=== PATIENT | male | born 1935 | race Caucasian/White ===

== ENCOUNTER 2018-03-09 08:48 | Outpatient (CLI) | payer MEDICARE, SELFPAY ==
[2018-03-09] VITALS (9 sets, daily range): BP systolic 104–122; BP diastolic 51–79; PULSE 63–74; RESP 16–18; TEMP 36.3; O2SAT 94–95
--- NOTE | 2018-03-09 08:50 | DI.RAD.S_ITS ---
PROCEDURE: PAIN L/SI FACET INJ/BLK 1STL INDICATIONS: SPONDYLOSIS FINDINGS: Fluoroscopic spot filming was performed to verify placement of spinal needles at the L4-L5 and L5-S1 level(s), as labeled on the films. Appropriate location(s) of the needle tip(s) was confirmed by injection of iodinated contrast. Dictated by: Dom Sinha M.D. on 03/10/2018 at 13:57 Approved by: Dom Sinha M.D. on 03/10/2018 at 13:57
[2018-03-09] MEDS: MIDAZOLAM 5 MG/5 ML VIAL IV (09:43)
[2018-03-09] MEDS: BUPIVACAINE 0.5% (PF) VIAL 2 ML INJ (09:48)
[2018-03-09] MEDS: IOPAMIDOL 15 ML VIAL 3 ML INJ (09:48)
[2018-03-09] MEDS: BETAMETHASONE 30 MG/5 ML MDV 12 MG INJ (09:49)
--- NOTE | 2018-03-09 09:53 | PC.NURSE ---
assisting pt from proc table and transporting to post proc area in stable condition
--- NOTE | 2018-03-09 09:57 | P.PCN_ITS ---
Procedures Date/Time Date of procedure: 03/09/18 Time of procedure: 09:56 General Procedure description: PREOP DIAGNOSIS 1. FACET ARTHROPATHY, 2. AXIAL LBP, 3. MULTILEVEL DDD, POST OP DIAGNOSIS 1. FACET ARTHROPATHY, 2. AXIAL LBP, 3. MULTILEVEL DDD, PROCEDURES 1. FLUORSCOPICALLY GUIDED CONTRAST CONTROLLED FACET JOINT INJECTIONS LEFT L4/5 , L5/S1 SURGEON: Gerson Dhillon, DO INDICATIONS Avelino is referred by for treatment of Axial LBP FINDINGS Multilevel Facet Arthropathy with Clinically significant axial LBP DESCRIPTION OF PROCEDURE Fluoroscopically guided, contrast-controlled left L4/5, L5/S1 facet joint injections. Following denial of allergy and review of potential side effects and complications, including, but not necessarily limited to, infection, allergic reaction, local tissue breakdown, stroke, temporary or permanent nerve injury, paralysis, and possible , the patient indicated that the patient understood and agreed to proceed. An informed consent document was signed by the patient, witnessed by a nurse, and placed in the patient's chart. Additionally, other treatment options including medications, modalities, and physical therapy were reviewed with the patient. After review of previous anaesthesic history and IV conscious sedation the patient was deemed safe to proceed with todays procedure with IV conscious sedation as ASA class II designation. Safety time-out was performed to confirm patient ID, procedure to be performed and site of procedure. IV sedation was accomplished with a combination of 2mg was administered by the RN after DO order , titrated to patient comfort during the course of the procedure while the patient remained responsive to all verbal commands. In the prone position, following sterile prep and drape of the lumbar region, the posterior aspect of the left L4/5, L5/S1 facet joints were identified fluoroscopically. The skin was anesthetized via a 25-gauge 1.5-inch needle with 1% lidocaine solution into the corresponding facet joints. At this point, a 22-gauge 3.5-inch spinal needle was atraumatically introduced and advanced under fluoroscopic guidance into the corresponding facet joints. Following negative aspiration, injections of approximately 0.2-cc of Isovue 200 confirmed interarticular placement without vascular uptake. Radiological data, including multiple fluoroscopic views of the lumbosacral spine, reveal a spinal needle at the left L4/5, L5/S1 facet joints. Subsequent views show flow of contrast material both superiorly and inferiorly within the joint space without vascular or intrathecal uptake. At this point, a total of 0.5 cc including a mixture of 0.25cc Marcaine and 0.25cc betamethasone was injected without complication into each of the corresponding facet joints. The procedure tolerated the procedure well without signs or symptoms of complications prior to transfer to the recovery area continued monitoring without incident. The patient was then transferred to the recovery area where they were observed for an appropriate period of time after the injection. The patient reported a VAS score of 7 prior to the procedure and a post-procedure VAS of 0. Total Fluoroscopy Time: 12.7 seconds Total Conscious Sedation Time: 24min POST OP INSTRUCTIONS The patient was provided a Pain Log to continue to record their response to the target-specific procedure prior to follow-up visit with their referring physician. Additionally, specific post-injection care instructions and a contact number to our office were provided if concerns arise regarding possible complications associated with the procedure are suspected. Gerson Dhillon, Complications: none
== END 2018-03-09 10:23 ==
LOC: RAD 08:49
PROVIDERS: Family Provider Family Medicine; PCP Family Medicine; Visit Provider Physical Medicine & Rehabilitation
DX: M47.817 Spondylosis without myelopathy or radiculopathy, lumbosacral region (principal); M43.16 Spondylolisthesis, lumbar region; M54.5 Low back pain; M51.36 Other intervertebral disc degeneration, lumbar region; M51.37 Other intervertebral disc degeneration, lumbosacral region
CPT/HCPCS: 64493; 99152; J0702; J2250

== ENCOUNTER 2018-05-05 06:18 | Inpatient (IN) | payer MEDICARE, SELFPAY ==
[2018-04-21 12:33] VITALS: BMI 27.4
[2018-05-05] VITALS (17 sets, daily range): BP systolic 100–167; BP diastolic 46–89; PULSE 67–88; RESP 9–18; TEMP 35.8–36.7; O2SAT 93–99; BMI 27.4
[2018-05-05] MEDS: LACTATED RINGERS 1,000 ML 42 ML IV ×2 (07:15→09:53)
--- NOTE | 2018-05-05 07:23 | PM.PREOP ---
Pre-operative Note Interval Note History & Physical reviewed/Exam performed by Physician: Yes Changes to H&P: No
[2018-05-05] MEDS: CEFAZOLIN 2 GM/100 ML FROZ.PIGGY IV ×2 (08:01→16:10)
--- NOTE | 2018-05-05 08:36 | SUR.OPER ---
Prone on spine table, head in foam head support, padded chest and pelvic supports, gel pad at knees, lower legs supported by pillows; nipples, genitalia and toes free of pressure, arms secured on foam padded arm boards at <90 degrees abduction. Tape over blanket at thigh secured to table.
[2018-05-05] MEDS: VANCOMYCIN 1,000 MG VIAL 1000 MG TOP (08:45)
[2018-05-05] MEDS: SODIUM CHLORIDE 0.9% 1,000 ML, GENTAMICIN 80 MG IRR (08:45)
[2018-05-05] MEDS: BUPIVACAINE 0.5% (PF) 4 ML, MORPHINE-PF 4 MG, BUTORPHANOL 1 MG, fentaNYL 100 MCG INJ (09:13)
--- NOTE | 2018-05-05 10:15 | PM.OP.1 ---
Operative Date/Time/Diagnoses Date of procedure: 05/05/18 Time of procedure: 10:16 Pre-op diagnosis: Thoracic stenosis with myelopathy Post-op diagnosis: same Procedure & Clinicians Procedure: T11-12 laminectomy T11-12 posterior fusion T11-12 screws Iliac crest bone graft aspirate Use of microscope Placement of epidural catheter Same procedure as scheduled: Yes Indications: 83-year-old male with myelopathy from severe cord compression at T11-12. It was felt that he would benefit from surgical decompression and stabilization and he requested to proceed with surgery. Risks and benefits of surgery were discussed and appropriate consents were obtained. Surgeon: Alberto Chavez Galvanizer Zinc: Selina Walsh Anesthesia Type: General Operative Notes Findings: None Closure Type: primary Specimen(s): none sent Prosthetic devices, grafts, tissues, transplants, or devices: NuVasive Reline screws Applied: catheter Estimated Blood Loss (mL): 20 Procedure in detail: Patient was brought to the operating room and intubated on the table. They were rolled over on the well-padded prone position on the Brown table. A time-out was performed. Preoperative antibiotics were given. The back was prepped and draped in standard sterile fashion. Using fluoroscopy for localization, a 7 cm incision was made in the midline. We used Bovie to dissect through the lumbodorsal fascia and then subperiosteally dissect the paraspinal muscles bilaterally out to the edges of the transverse processes. A marker was placed and x-ray was taken to confirm positioning using both AP verification as well as a lateral counting up from the sacrum. We then began placing our screws. A bur was used to decorticate the junction of the transverse process and the facet. We then advanced a gear shifter with neuro monitoring down the pedicle of T11 on the right. We rotated longterm through to go more medial. We checked with a ball probe for a floor and 4 stokes. We then tapped with neuro monitoring. We decorticated the transverse process and the bone right around where the screw would go with the bur. We then placed our Reline screw into T11 on the right. We used the same technique to place screws at T11 bilaterally and T12 bilaterally. Position was confirmed with fluoroscopy. The facet at T11-12 was decorticated but we took care to preserve the T10-11 facet. We then brought in the microscope. A laminectomy was performed at T11-12. We used a combination of bur and Kerrison rongeurs to remove the ligamentous thickening, the inferior lamina, and the extremely large hypertrophic facets bilaterally. This was much worse on the left side which had a very large indentation into the cord. As we continued with our decompression, the dura began filling back into the space where it had been compressed earlier. At the end of this we could place a nerve hook cephalad caudally and out laterally and everything was widely decompressed. The wound was irrigated. We placed rods into the screws and locked them down and took our final x-rays. An epidural catheter was prepared with 8 mL of 0.25% Marcaine and 100 mcg of fentanyl. The dura was carefully depressed and the catheter was advanced 6 cm cephalad underneath remaining lamina without resistance. The fascia was then closed in layers. The epidural catheter was injected without complications and removed. Vancomycin powder was placed in the wound. The superficial and the skin were closed. Sterile dressing was placed. Patient was rolled over extubated brought to recovery room with no complications. Complications: none Condition: stable Disposition: PACU Plan for aftercare: Inpatient. Up with physical therapy.
--- NOTE | 2018-05-05 10:41 | DI.RAD.S_ITS ---
PROCEDURE: XR THORACIC SPINE 3V INDICATIONS: T-11, T-12 LAMINECTOMY WITH FUSION TECHNIQUE: 2 intraoperative fluoroscopic of the thoracic spine were acquired. COMPARISON: None. FINDINGS: Intraoperative fluoroscopic images of lower thoracic spine/sarcoma junction shows laminectomy and posterior fusion at T11-12 level. IMPRESSION: Fluoroscopy guidance was provided intraoperatively for laminectomy and fusion at T11-12 level. Dictated by: Gary Marie M.D. on 05/05/2018 at 10:49 Approved by: Gary Marie M.D. on 05/05/2018 at 10:50
[2018-05-05] MEDS: HYDROMORPHONE 2 MG INJ 0.5 MG IV ×2 (11:14→11:23)
--- NOTE | 2018-05-05 11:53 | SUR.PHASEI ---
Stable pacu stay, medicated with fentanyl for pain, report called to [facility], then pt transported up to room 226 on room air, pt's belongings, hearing aids and glasses left with pt. Skin rash to l forehead unchanged from admit, dressing to back unchanged from previous charting as well.
[2018-05-05] MEDS: HYDROCODONE/ACET 5/325 TABLET 2 TAB PO (12:52)
[2018-05-05] MEDS: LACTATED RINGERS 1,000 ML 125 ML IV ×2 (12:59→22:07)
[2018-05-05] MEDS: diphenhydrAMINE 25 MG TABLET PO ×2 (13:35→19:37)
--- NOTE | 2018-05-05 13:50 | PT.IIE ---
Current Diagnoses Spondylolisthesis, lumbar region (05/05/18) Other spondylosis with myelopathy, thoracic region (05/05/18) Spinal stenosis, lumbar region with neurogenic claudication (05/05/18) Other cervical disc degeneration, unspecified cervical region (05/05/18) Surgery Performed Operation Date: 05/05/18 07:45 Actual Procedures p T11-12 Laminectomy w/Instru. fusion w/bone graft(Not Applicable) - Alberto Chavez MD Surgical History (Last Updated 04/21/18 @ 13:40 by Arlene Saxena RN) H/O cardiac catheterization (Acute ~2003) History of right cataract extraction (Acute) Hx of tonsillectomy (Acute) S/P aortic valve replacement with bioprosthetic valve (Acute ~2003) Medical History (Last Updated 04/21/18 @ 14:50 by Arlene Saxena RN) Acute on chronic diastolic congestive heart failure (Acute) Amputation of finger, left (Acute) Arthritis (Acute) Back pain (Acute) Bleeds easily (Acute) COPD (chronic obstructive pulmonary disease) (Acute) Carotid artery disease (Acute) Cervical arthritis (Acute) Chronic diastolic congestive heart failure (Acute) Dyslipidemia (Acute) Easy bruisability (Acute) Enlarged prostate (Acute) Graves' eye disease (Acute) Hearing impaired (Acute) Left shoulder pain (Acute) Mitral valve regurgitation (Acute) 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) Peripheral arterial disease (Acute) Rash (Acute) Rheumatoid arthritis (Acute) Shingles (Acute) Thoracic spinal stenosis (Acute) Physical Therapy Inpatient Evaluation/Re-Eval M1 PT/OT-IP Prior Functional Status Start: 05/05/18 15:15 Freq: NEEDED Status: Active Protocol: Document 05/05/18 13:50 AB (Rec: 05/05/18 15:39 AB [id number]) Medical Review Prior Functional Status Medical History Reviewed Yes Communication pt able to make needs known but somewhat sleepy but able to answer questions appropriately Mobility and Gait pt stated that he is independent with all mobilities and ambulation without AD but occasionally uses a SPC outdoors Activities of Daily Living and IADL's spouse assist pt with his UB due to RA on L shoulder Social History Household Members spouse Living Arrangements House Number of Floors (Floors) Two Floors Number of Stairs To Enter/Railing? pt will stay on main level of the house; has 2 steps to enter without rails Home Environment Standard Height Toilet Walk in Shower Home Equipment Straight Cane Shower Seat without Backrest Hand Held Shower Grab Bars In Shower Employment Status Retired Additional Social History Comment pt has a standard walker; has a high bed (may need a step stool) M2 PT-IP Current Condition Start: 05/05/18 15:15 Freq: NEEDED Status: Active Protocol: Document 05/05/18 13:50 AB (Rec: 05/05/18 15:39 AB [id number]) Physical Therapy Current Condition Current Condition Evaluation Date 05/05/18 Treatment Diagnosis s/p T11-T12 lami/posterior fusion; difficulty in walking Onset Date 05/05/18 Precautions Lumbar Precautions Log Roll No Twisting Limit Bending Lifting Restriction of 10 lbs Gait Belt above Incisional Area M3 PT-IP Subjective Start: 05/05/18 15:15 Freq: NEEDED Status: Active Protocol: Document 05/05/18 13:50 AB (Rec: 05/05/18 15:39 AB [id number]) Subjective Physical Therapy Visit Type Type Initial Evaluation Visit Start Time 13:50 Visit Stop Time 15:10 Total Visit Minutes 80 Number of DIETARY DIRECTOR Visits 0 Physical Therapy Visit Comments Patient Comments pt agreeable to do PT Patient Goals spouse present during tx session: stated that for pt to be able to go home he must: be able to get up from the toilet by himself; get up from a chair by himself; get dressed by himself and walk by himself. Therapy Pain Assessment Pain When Pain Assessed At Rest Pain Present Pain Present Pain Reported Location back Intensity 4 Scale Used increased to 5 with mobility Pain Management Techniques Re-positioning Timing of Activity with Medications M4 PT-IP Mobility and Gait Start: 05/05/18 15:15 Freq: NEEDED Status: Active Protocol: Document 05/05/18 13:50 AB (Rec: 05/05/18 15:39 AB [id number]) PT-Bed Mobility Assessment Rolling Type of Rolling Log Rolling Level of Assist Minimal Assistance Supine to Sit Supine to Sit 1 Person Assistance Sit to Supine Sit to Supine Minimal Assistance 1 Person Assistance Scooting Scooting to Edge of Bed Minimal Assistance Scooting Up and Down in Bed Minimal Assistance PT-Transfer Assessment Sit to and From Stand Sit to and from Stand Moderate Assistance 1 Person Assistance Use of Upper Extremities Comments Mobility Comments pt completed bed mobility supine to sit mod A and cues. able to sit on EOB SBA. c/o lightheadedness. BP prior to mobility: 170/89. BP sitting on EOB: 164/74. pt completed sit to stand requiring mod A and max cues. pt was unsteady and required mod A for balance. cued for upright posture and to use UE on walker for support. instructed pt to sit back down requiring mod A for controlled descent. checked BP again: 159/78 attempted to stand again but pt started shaking . pt stated that he feels ok. informed nurse. assisted pt back to bed. instructed to scoot towards HOB and completed CGA. pt completed sit to supine log roll mod A and cues. pt does not present with any shaking/ tremors anymore. BP: 174/92. positioned pt in bed. call light and table placed within reach. Gait Assessment Comments Gait Comments unable at this time PT-Balance Assessment Sitting Balance and Reactions Static Sitting Balance Ability Good Dynamic Sitting Balance Ability Good Standing Balance and Reactions Static Standing Balance Ability Fair Dynamic Standing Balance Ability Fair Device Used FWW M5 PT-IP Objective Assessments Start: 05/05/18 15:15 Freq: NEEDED Status: Active Protocol: Document 05/05/18 13:50 AB (Rec: 05/05/18 15:39 AB [id number]) Orientation Orientation/Cognition Level of Alertness Alert Orientation Name Age Birthday Month Date Year Day of Week Place Situation Language Function Ability No Deficits Noted Hard of Hearing Safety Awareness Decreased Safety Awareness Memory Description Short Term Impaired Gross Range of Motion Lower Extremity ROM Assessment Within Functional Limits Strength Lower Extremity Strength Assessment Within Functional Limits Muscle Tone Muscle Tone WNL Yes M6 PT-IP Treatment Start: 05/05/18 15:15 Freq: NEEDED Status: Active Protocol: Document 05/05/18 13:50 AB (Rec: 05/05/18 15:39 AB [id number]) Physical Therapy Treatment Education Education Provided Precautions Weight Bearing Status Post-Op Packet Safety M7 PT-IP Assessment and Plan Start: 05/05/18 15:15 Freq: NEEDED Status: Active Protocol: Document 05/05/18 13:50 AB (Rec: 05/05/18 15:39 AB [id number]) PT Summary Assessment and Plan Potential Rehabilitation Potential Fair Status of Condition at Evaluation Evolving Summary Impairments Pain ROM Strength Balance Coordination Sensation Tone Cognition Bed Mobility Transfers Gait Activity Tolerance Assessment Summary pt requiring one person assist with mobility and d/c plan depending on progress. spouse stated that she cannot help pt much physically and pt has to be more or less independent for him to be able to go home . caregiver training will be conducted if appropriate. pt also has steps and stair climbing will be conducted as well. At this time, pt may require SNF rehab. Goals Bed Mobility Goal Standby Assistance Transfer Goal Standby Assistance Front Wheeled Walker Gait Goal Standby Assistance Front Wheel Walker Gait Distance 150 Other Goals up/down 2 steps using FWW/SPC SBA Days to Meet Goals 5 Frequency of Treatment Frequency Of Treatment Twice a Day Treatment Plan Physical Therapy Treatment Plan Bed Mobility Training Transfer Training Gait Training Therapeutic Exercise Balance Retraining Post Op Education Discharge Planning Hot or Cold Pack Neuromuscular Re-ed Coordination Retraining Manual Therapy Other Recommendations and Next Treatment bed mobility, ambulation, Focus caregiver training, stair climbing Recommendations To Nursing Amount of Assist Needed PT/OT Assist Only Discharge Recommendations PT Discharge Recommendations SNF Rehab Other Discharge Recommendations SNF vs home with assistance and possibly HH PT depending on progress Equipment Needed for Home Before FWW: spouse will try to borrow Discharge one
--- NOTE | 2018-05-05 15:54 | CM.IDA ---
Discharge Planning/Care Management Advanced directive, confirm from FAMILY Start: 05/05/18 13:29 Freq: Q24H Status: Active Protocol: Document 05/05/18 12:11 CEW (Rec: 05/05/18 14:12 CEW [id number]) Advance Directive, confirm on record Time 08:00 Person contacted Spouse Copy received Yes CM Discharge Assessment Start: 05/05/18 15:45 Freq: Status: Active Protocol: Document 05/05/18 15:46 GIDEON (Rec: 05/05/18 15:53 GIDEON [id number]) Discharge Planning Assessment Assigned Records Management Analyst JOSE J Almendarez DPOA/Assigned Designee Name Bryan Boateng, spouse Contact Information [phone] Advance Directives? Yes Advance Directives on File No History Provided By Patient Significant Other Medical Record Prior Living Arrangements House Household Members spouse Type of transporation used prior to Drives own vehicle admit Independent with ADL's Yes Is patient alert and oriented? Yes Barriers to Discharge Yes Comment Pt just got to the acute care floor today after spinal surgery w/ Dr Chavez. Payer: Medicare/[employer]. Reviewed chart. Pt worked w/ PT this afternoon but unable to safely ambulate at this time, became unsteady, requird Mod A for controlled descent back into chair. Bed mobility completed only today. Spouse explains pt needs to be able to self transfer and walk on his own in order to safely return home, spouse can not assist much physically. Pt may require SNF. Following closely and will review DCP options w/pt and spouse Wednesday . JOSE J Beal Additional Comment Home vs SNF pending progress w /therapy team. Review Status In Process
[2018-05-05] MEDS: GABAPENTIN 300 MG CAPSULE 600 MG PO ×2 (16:08→20:27)
[2018-05-05] MEDS: hydrOXYzine pamoate 25 MG CAPSULE PO ×2 (16:15→21:04)
[2018-05-05] MEDS: LOSARTAN 50 MG TABLET PO (20:27)
[2018-05-05] MEDS: DOCUSATE 100 MG CAPSULE PO (20:29)
[2018-05-05] MEDS: SENNOSIDES 8.6 MG TABLET 17.2 MG PO (20:30)
[2018-05-05] MEDS: HYDROXYCHLOROQUINE 200 MG TABLET PO (20:31)
[2018-05-05] MEDS: FINASTERIDE 5 MG TABLET PO (20:31)
[2018-05-05] MEDS: ASPIRIN EC 81 MG TABLET PO (20:33)
[2018-05-05] MEDS: TIMOLOL 0.5% OPHTH 1 DROPS EYE-BOTH (20:35)
[2018-05-05] MEDS: LATANOPROST 0.005% OPHTH 2.5 ML 1 DROPS EYE-RIGHT (20:36)
[2018-05-05] MEDS: TAMSULOSIN 0.4 MG CAPSULE PO (20:37)
[2018-05-05] MEDS: SIMVASTATIN 40 MG TABLET PO (20:38)
[2018-05-05] MEDS: SILDENAFIL 20 MG TABLET 50 MG PO (20:49)
[2018-05-06] VITALS (8 sets, daily range): BP systolic 98–130; BP diastolic 44–63; PULSE 58–72; RESP 16–20; TEMP 36.4–37; O2SAT 94–97
[2018-05-06] MEDS: CEFAZOLIN 2 GM/100 ML FROZ.PIGGY IV (00:03)
[2018-05-06 06:08] LABS: Hematocrit 31.5 % (41-53); Hemoglobin 10.4 g/dL (13.5-17.5)
[2018-05-06] MEDS: LACTATED RINGERS 1,000 ML 125 ML IV ×2 (06:16→17:40)
--- NOTE | 2018-05-06 07:24 | PM.PNPO.1 ---
Subjective Date Patient Seen: 05/06/18 Time Patient Seen: 07:24 Interval history: He is doing great. Absolutely no pain. Exam Vital Signs (past 8 hours): - 05/06/18 00:47 05/06/18 06:18 Temperature 98.6 F 97.5 F L Pulse Rate 66 72 Respiratory Rate 16 18 Blood Pressure 126/58 L 106/56 L Pulse Oximetry 94 96 Oxygen Delivery Method Room Air Const Orientation: alert and oriented x3 Back/Spine/Pelvis Other: 5/5 motor both lower extremities. Dressing clean dry intact Objective Labs Result Diagrams: 05/06/18 05:35 Labs: Laboratory Results - last 24 hr 05/06/18 05:35 Hgb 10.4 L Hct 31.5 L Assessment & Plan Post-op Postoperative Procedures Operation Date: 05/05/18 07:45 Actual Procedures Side Surgeon p T11-12 Laminectomy w/Instru. fusion w/bone graft Not Applicable Alberto Chavez MD He is doing great. I explained to him that the epidural will wear off at some point today and his pain levels will probably increase but for now he is quite happy. Continue to mobilize with physical therapy. I anticipate discharge probably tomorrow.
[2018-05-06] MEDS: TIMOLOL 0.5% OPHTH 1 DROPS EYE-BOTH ×2 (08:52→20:56)
[2018-05-06] MEDS: GABAPENTIN 300 MG CAPSULE 600 MG PO ×3 (08:53→20:58)
[2018-05-06] MEDS: DOCUSATE 100 MG CAPSULE PO ×2 (08:53→20:59)
[2018-05-06] MEDS: POTASSIUM CHLORIDE 10 MEQ TAB PO (08:53)
--- NOTE | 2018-05-06 09:32 | PT.IPTN ---
Current Diagnoses Spondylolisthesis, lumbar region (05/05/18) Other spondylosis with myelopathy, thoracic region (05/05/18) Spinal stenosis, lumbar region with neurogenic claudication (05/05/18) Other cervical disc degeneration, unspecified cervical region (05/05/18) Surgery Performed Operation Date: 05/05/18 07:45 Actual Procedures p T11-12 Laminectomy w/Instru. fusion w/bone graft(Not Applicable) - Alberto Chavez MD Physical Therapy Treatment Note M2 PT-IP Current Condition Start: 05/05/18 15:15 Freq: NEEDED Status: Active Protocol: Document 05/05/18 13:50 AB (Rec: 05/05/18 15:39 AB [id number]) Physical Therapy Current Condition Current Condition Evaluation Date 05/05/18 Treatment Diagnosis s/p T11-T12 lami/posterior fusion; difficulty in walking Onset Date 05/05/18 Precautions Lumbar Precautions Log Roll No Twisting Limit Bending Lifting Restriction of 10 lbs Gait Belt above Incisional Area M3 PT-IP Subjective Start: 05/05/18 15:15 Freq: NEEDED Status: Active Protocol: Document 05/06/18 09:32 AB (Rec: 05/06/18 12:55 AB [id number]) Subjective Physical Therapy Visit Type Visit Start Time 09:32 Visit Stop Time 12:00 Total Visit Minutes 45 Notes pt seen for a split tx due to BP issues Number of [employer]ER Visits 0 Physical Therapy Visit Comments Patient Comments pt stated that he feels ok; c /o double vision with first tx attempt Therapy Pain Assessment Pain When Pain Assessed At Rest Pain Present Pain Present Pain Reported Location back Intensity 4 Scale Used Numeric (1 - 10) Pain Management Techniques Re-positioning Timing of Activity with Medications M4 PT-IP Mobility and Gait Start: 05/05/18 15:15 Freq: NEEDED Status: Active Protocol: Document 05/06/18 09:32 AB (Rec: 05/06/18 12:55 AB [id number]) PT-Bed Mobility Assessment Rolling Type of Rolling Log Rolling Level of Assist Standby Assistance PT-Transfer Assessment Sit to and From Stand Sit to and from Stand Moderate Assistance Equipment Transfer Assistive Device Gait Belt Front Wheeled Walker Orthotic/Prosthetic Devices or Brace: No Transfers Transfer Technique pt ambulated to the chair Transfer Ability Level of Assist Moderate Assistance Comments Mobility Comments checked on pt and pt sitting on chair. BP sitting on chair : 90/42. elevated LE up. BP checked again: 89/41. informed nurse. Reclined pt on chair: 90/39. checked again after ~ 2 min: 94/48. pt also with c/o double vision. informed nurse again and stated that she will ask for IV bolus order. checked on pt after ~ 1 1/2. pt in bed. BP supine: 105/50. pt completed supine to sit SBA and cues for safety. BP sitting on EOB: 110/55 pt rested for a few more minutes sitting. pt completed sit to stand mod A and cues with + LE shaking. BP checked again 106/59. pt ambulated to the chair ~ 12 ft using FWW mod A and cues. pt with unsteady antalgic gait with (+) RLE increase knee bending and shaking during stance . set pt on chair. BP checked: 105/ 46. nurse informed. pt was asked regarding symptoms since start of tx session but stated that he feels great and steady. when asked again, pt stated that he might be a little lightheaded. BP needs to be monitored closely as pt tends to downgrade his symptoms. Gait Assessment Gait Gait Assistance Required: Moderate Assistance Distance (Feet) 12 Able to Maintain Weight Bearing Status Yes During Gait Assistive Devices Assistive Device Gait Belt Front Wheeled Walker Orthotic/Prosthetic Devices or Brace: No Gait Deviations General Gait Pattern Antalgic Decreased Stride Length Decreased Feet Clearance Factors Limiting Gait Function Factors Limiting Gait Function Decreased Activity Tolerance Decreased Strength Difficulty Following Directions Limited Range of Motion Pain Poor Balance Poor Safety Awareness M5 PT-IP Objective Assessments Start: 05/05/18 15:15 Freq: NEEDED Status: Active Protocol: Document 05/05/18 13:50 AB (Rec: 05/05/18 15:39 AB [id number]) Orientation Orientation/Cognition Level of Alertness Alert Orientation Name Age Birthday Month Date Year Day of Week Place Situation Language Function Ability No Deficits Noted Hard of Hearing Safety Awareness Decreased Safety Awareness Memory Description Short Term Impaired Gross Range of Motion Lower Extremity ROM Assessment Within Functional Limits Strength Lower Extremity Strength Assessment Within Functional Limits Muscle Tone Muscle Tone WNL Yes M6 PT-IP Treatment Start: 05/05/18 15:15 Freq: NEEDED Status: Active Protocol: Document 05/06/18 09:32 AB (Rec: 05/06/18 12:55 AB [id number]) Physical Therapy Treatment Education Education Provided Precautions Safety M7 PT-IP Assessment and Plan Start: 05/05/18 15:15 Freq: NEEDED Status: Active Protocol: Document 05/06/18 09:32 AB (Rec: 05/06/18 12:55 AB [id number]) PT Summary Assessment and Plan Potential Rehabilitation Potential Fair Summary Impairments Pain ROM Strength Balance Coordination Cognition Bed Mobility Transfers Gait Activity Tolerance Progress Towards Goals Slow Progress due to Activity Tolerance Assessment Summary pt requiring mod A with transfers and ambulation and unable to do much activity due to decrease in BP. d/c plan depending on progress and if spouse will be able to assist pt safely at home. will continue to assess Goals Bed Mobility Goal Standby Assistance Transfer Goal Standby Assistance Front Wheeled Walker Gait Goal Standby Assistance Front Wheel Walker Gait Distance 150 Other Goals up/down 2 steps using FWW/SPC SBA Days to Meet Goals 5 Frequency of Treatment Frequency Of Treatment Twice a Day Treatment Plan Physical Therapy Treatment Plan Bed Mobility Training Transfer Training Gait Training Therapeutic Exercise Balance Retraining Post Op Education Discharge Planning Hot or Cold Pack Neuromuscular Re-ed Coordination Retraining Manual Therapy Other Recommendations and Next Treatment bed mobility, ambulation, Focus caregiver training, stair climbing Recommendations To Nursing Amount of Assist Needed 1 Person Assist Discharge Recommendations PT Discharge Recommendations Home with / Assist Home Health SNF Rehab Other Discharge Recommendations SNF vs home with assistance and possibly HH PT depending on progress
--- NOTE | 2018-05-06 09:59 | OT.IP.TRT ---
Current Diagnoses Spondylolisthesis, lumbar region (05/05/18) Other spondylosis with myelopathy, thoracic region (05/05/18) Spinal stenosis, lumbar region with neurogenic claudication (05/05/18) Other cervical disc degeneration, unspecified cervical region (05/05/18) Surgery Performed Operation Date: 05/05/18 07:45 Actual Procedures p T11-12 Laminectomy w/Instru. fusion w/bone graft(Not Applicable) - Alberto Chavez MD Occupational Therapy Treatment Note M2 OT-IP Current Condition Start: 05/06/18 08:58 Freq: Status: Active Protocol: Document 05/06/18 09:32 [facility] (Rec: 05/06/18 09:59 [facility] [id number]) Occupational Therapy Current Condition Current Condition Evaluation Date 05/06/18 Treatment Diagnosis T11-12 Laminectomy Post Operative Precautions Lumbar Precautions Log Roll No Twisting Limit Bending Lifting Restriction of 10 lbs Gait Belt above Incisional Area M3 OT- IP Subjective and Pain Start: 05/06/18 08:58 Freq: Status: Active Protocol: Document 05/06/18 09:32 [facility] (Rec: 05/06/18 09:59 [facility] [id number]) OT- Subjective Occupational Therapy Visit Type Type Initial Evaluation Visit Start Time 08:15 Visit Stop Time 08:50 Total Visit Minutes 45 Notes Pt also seen from 0920 to 0930 . Pt's present for OT eval. Occupational Therapy Visit Comments Patient Comments Pt willing to get up for OT eval. OT Pain Assessment Pain When Pain Assessed At Rest Pain Present Pain Present Denied Pain M4 OT- IP ADL's Start: 05/06/18 08:58 Freq: Status: Active Protocol: Document 05/06/18 09:32 [facility] (Rec: 05/06/18 09:59 [facility] [id number]) OT OCM-Xrjj-Rzlkczy General Evaluation Self-Feeding Ability Independent OT ADL-Grooming General Evaluation Grooming Ability Standby Assistance Comments OT Grooming Comments Set-up of wash cloth so pt able to wash his face and hand while in bed. Pt wanting to brush his teeth after breakfast. OT ADL-Dressing General Eval Lower Body Dressing Ability Maximum Assistance Areas Needing Assistance Socks Comments OT Dressing Comments MAX A for LB dressing at this time due to back precautions. Able to show and educate pt for LB dressing AED and needing SKYLA for socks aid and will need more practice. Pt's states able to assist if needed but prefers for pt to be able to do all dressing on his own. OT ADL-Toileting General Evaluation Toileting Ability Total Assistance Comments OT Toileting Comments Catheter. M5 OT- IP IADL's Start: 05/06/18 08:58 Freq: Status: Active Protocol: Document 05/06/18 09:32 [facility] (Rec: 05/06/18 09:59 [facility] [id number]) OT-Instrumental Activities of Daily Living Medication Management Medication Management Caregiver Administers Money Management Money Management Caregiver Provides Assistance Meal Preparation Meal Preparation Caregiver Provides Assist M6 OT- IP Functional Cognition Start: 05/06/18 08:58 Freq: Status: Active Protocol: Document 05/06/18 09:32 [facility] (Rec: 05/06/18 09:59 [facility] [id number]) Cognitive Factors Limiting Selfcare Function Cognitive Ability Level of Alertness Alert Patient Orientation Name Place Situation Attention Span Ability Capable of Focused Attention Capable of Sustained Attention Ability to Follow Commands Able to Follow One Step Commands with Increased Time Able to Follow One Step Commands with Repetition Memory Description Short Term Impaired Safety Awareness Decreased Ability to Apply Precautions Underestimates Need for Assistance Problem Solving Ability Needs Assist to Identify Solutions Cognitive Comments Cognitive Assessment Comments Pt unable to recall back precautions and after education only able to recall 2/3. Pt needing cues to use of BUE to push off the bed to stand and reach back before sitting. Pt a bit impulsive and needing cues to slow down. 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 Today pt's eyes at times not scanning together to follow therapist finger, especially to the left. M7 OT- IP Mobility and Balance Start: 05/06/18 08:58 Freq: Status: Active Protocol: Document 05/06/18 09:32 [facility] (Rec: 05/06/18 09:59 [facility] [id number]) OT- Bed Mobility Assessment Rolling Type of Rolling Roll to Right Level of Assistance Standby Assistance Supine to Sit Supine to Sit Assist Standby Assistance 1 Person Assistance Scooting Scooting to Edge of Bed Standby Assistance 1 Person Assistance OT-Transfer Assessment Sit to and From Stand Sit to and from Stand Standby Assistance 1 Person Assistance Transfers Transfer Ability Minimal Assistance Technique Transfer Destination Chair Transfer Technique Stand Pivot Devices Transfer Assistive Devices Gait Belt Front Wheeled Walker Comments Mobility Comments BP supine 101/50, sitting 109/ 72 , and after standing 103/48 , pt states feels a bit groggy , nursing notified of decreased BP. Pt tending to lean to the right while walking and needing SKYLA for balance. At this time recommend to nursing transfer only due to decreased BP and balance. OT- Balance Assessment Sitting Balance and Reactions Static Sitting Balance Ability Normal Dynamic Sitting Balance Ability Good Standing Balance and Reactions Static Standing Balance Ability Fair M8 OT- IP Objective Assessments Start: 05/06/18 08:58 Freq: Status: Active Protocol: Document 05/06/18 09:32 [facility] (Rec: 05/06/18 09:59 [facility] [id number]) OT Gross Range of Motion Upper Extremity Range of Motion Assessment Left Impaired ROM Impairments RUE WFL. 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 OT Strength Comments Strength Comments RUE 5/5, elbow to distal 5/5 for LUE. M9 OT- IP Assessment and Plan Start: 05/06/18 08:58 Freq: Status: Active Protocol: Document 05/06/18 09:32 [facility] (Rec: 05/06/18 09:59 [facility] [id number]) OT Summary Assessment and Plan Potential Rehabilitation Potential Good Analytic Complexity at Evaluation Low Summary OT Impairments Range of Motion Balance Functional Cognition Functional Mobility Grooming Dressing Toileting Bathing Toilet Transfers Shower Transfers Progress Towards Goals Slow Progress due to Medical Issues Slow Progress due to Cognition Assessment Summary Pt low complexity and main barrier are steps, low BP, and decreased safety awareness. Pt's unable to do lifting and needing pt to be able to independently dress,toilet , and transfer on his own prior to coming home. Pt a bit groogy and not remembering back precautions and needing lots of cues to safety. Pt would benefit at this time from skilled rehab pending caregiver training and ability of pt's to provide even assist for pt. Goals Grooming Goal Standby Assistance Dressing Goal Minimal Assistance Toileting Goal Standby Assistance Bathing Goal Minimal Assistance Toilet Transfer Goal Standby Assistance Shower Transfer Goal Contact Guard Assistance Patient/Caregiver Education Goal Demonstrate Post-Op Precautions Caregiver Independent Assisting Patient Days to Meet Goals 4 Frequency of Treatment Frequency Of Treatment Once a Day Treatment Plan OT Treatment Plan ADL Training Functional Cognition Training Functional Mobility Patient/Family Education Discharge Planning Other Treatment Recommendations and Next Caregiver training, practice Treatment Focus with AED Discharge Recommendations OT Discharge Recommendations SNF Rehab Other Discharge Recommendations Pending caregiver training and increased progress and safety with pt , pt may go home with . Home Equipment Needs FWW
--- NOTE | 2018-05-06 11:04 | PC.NURSE ---
Addendum entered by Lisa Mesa R.N. 05/06/18 14:26: Pts given 1L Normal Saline bolus and bp better at 100s/50s. Pt has not been in much pain this shift and has not asked for pain medication. It has been offered to him but he has mostly been sleepy. He does deny any further dizziness or double vision. Original Note: Pts blood pressure dropped to 90/30s. He complained of dizziness and double vision. Fax sent down to to see if he wanted to bolus patient with NS. Just checked pts bloop pressure and it is now 100s/52, he got back to bed with rag shredder assist and did not complain of any dizziness. His dressings are both cdi and he denies pain at this time. Denies numbness or tingling to arms and legs. Pt does have some confusion at times but is cooperative with all care. Pts lasix and Viagra have been held as bp has been low. at bedside and pt resting on his back.
[2018-05-06] MEDS: SODIUM CHLORIDE 0.9% 1,000 ML 1000 ML IV (11:57)
--- NOTE | 2018-05-06 14:57 | PT.IPTN ---
Current Diagnoses Spondylolisthesis, lumbar region (05/05/18) Other spondylosis with myelopathy, thoracic region (05/05/18) Spinal stenosis, lumbar region with neurogenic claudication (05/05/18) Other cervical disc degeneration, unspecified cervical region (05/05/18) Surgery Performed Operation Date: 05/05/18 07:45 Actual Procedures p T11-12 Laminectomy w/Instru. fusion w/bone graft(Not Applicable) - Alberto Chavez MD Physical Therapy Treatment Note M2 PT-IP Current Condition Start: 05/05/18 15:15 Freq: NEEDED Status: Active Protocol: Document 05/05/18 13:50 AB (Rec: 05/05/18 15:39 AB [id number]) Physical Therapy Current Condition Current Condition Evaluation Date 05/05/18 Treatment Diagnosis s/p T11-T12 lami/posterior fusion; difficulty in walking Onset Date 05/05/18 Precautions Lumbar Precautions Log Roll No Twisting Limit Bending Lifting Restriction of 10 lbs Gait Belt above Incisional Area M3 PT-IP Subjective Start: 05/05/18 15:15 Freq: NEEDED Status: Active Protocol: Document 05/06/18 14:10 LJ (Rec: 05/06/18 14:56 LJ [id number]) Subjective Physical Therapy Visit Type Type Treatment Note Visit Start Time 14:10 Visit Stop Time 14:37 Total Visit Minutes 27 Notes Pt sleeping in bed. in room. Pt willing to get out of bed for therapy. Physical Therapy Visit Comments Patient Comments Pt states he feels better; no dizziness or double vision. States he is feeling the anesthesia wear off and is having a little more pain than yesterday. Therapy Pain Assessment Pain When Pain Assessed At Rest Pain Present Pain Present Pain Reported M4 PT-IP Mobility and Gait Start: 05/05/18 15:15 Freq: NEEDED Status: Active Protocol: Document 05/06/18 14:10 LJ (Rec: 05/06/18 14:56 LJ [id number]) PT-Bed Mobility Assessment Rolling Type of Rolling Log Rolling Level of Assist Standby Assistance Supine to Sit Supine to Sit Standby Assistance Sit to Supine Sit to Supine Standby Assistance Scooting Scooting to Edge of Bed Standby Assistance PT-Transfer Assessment Sit to and From Stand Sit to and from Stand Contact Guard Assistance Use of Upper Extremities Equipment Transfer Assistive Device Gait Belt Front Wheeled Walker Orthotic/Prosthetic Devices or Brace: No Transfers Transfer Destination Bed Transfer Ability Level of Assist Contact Guard Assistance Comments Mobility Comments Pt performed 6 sit<>stand with bed in low and high positions . Able to state andadhere to back precautions. No LOB, dizziness, or double vision. M5 PT-IP Objective Assessments Start: 05/05/18 15:15 Freq: NEEDED Status: Active Protocol: Document 05/05/18 13:50 AB (Rec: 05/05/18 15:39 AB [id number]) Orientation Orientation/Cognition Level of Alertness Alert Orientation Name Age Birthday Month Date Year Day of Week Place Situation Language Function Ability No Deficits Noted Hard of Hearing Safety Awareness Decreased Safety Awareness Memory Description Short Term Impaired Gross Range of Motion Lower Extremity ROM Assessment Within Functional Limits Strength Lower Extremity Strength Assessment Within Functional Limits Muscle Tone Muscle Tone WNL Yes M6 PT-IP Treatment Start: 05/05/18 15:15 Freq: NEEDED Status: Active Protocol: Document 05/06/18 14:10 LJ (Rec: 05/06/18 14:56 LJ [id number]) Physical Therapy Treatment Exercises Exercises Ankle Pumps Gluteal Sets Heel Slides Education Education Provided Precautions Safety Other Treatments Other Treatment Performed Marching in place; weight shifting in place; glute and abdominal engagement for stability in standing and during ambulation M7 PT-IP Assessment and Plan Start: 05/05/18 15:15 Freq: NEEDED Status: Active Protocol: Document 05/06/18 14:10 LJ (Rec: 05/06/18 14:56 LJ [id number]) PT Summary Assessment and Plan Potential Rehabilitation Potential Fair Summary Impairments Pain ROM Strength Balance Coordination Cognition Bed Mobility Transfers Gait Activity Tolerance Assessment Summary Pt improved mobility with less assist. Advised pt that he would need to complete stair training and step up into bed for safe d/c home. Pt also needs to progress gait for safe d/c home. Pt states the told him he wouldn't have to anything once he gets home but disagrees and is concerned pt will not try to do anything for himself. Goals Bed Mobility Goal Standby Assistance Transfer Goal Standby Assistance Front Wheeled Walker Gait Goal Standby Assistance Front Wheel Walker Gait Distance 150 Other Goals up/down 2 steps using FWW/SPC SBA Days to Meet Goals 5 Frequency of Treatment Frequency Of Treatment Twice a Day Treatment Plan Physical Therapy Treatment Plan Bed Mobility Training Transfer Training Gait Training Therapeutic Exercise Balance Retraining Post Op Education Discharge Planning Hot or Cold Pack Neuromuscular Re-ed Coordination Retraining Manual Therapy Recommendations To Nursing Amount of Assist Needed 1 Person Assist Discharge Recommendations PT Discharge Recommendations Home with 24/ Assist Home Health SNF Rehab Other Discharge Recommendations SNF vs home with assistance and possibly PT depending on progress. Pt will need to be less dependent on spouse for ADLs for DC home.
[2018-05-06] MEDS: HYDROCODONE/ACET 5/325 TABLET 1 TAB PO (15:03)
--- NOTE | 2018-05-06 15:03 | CM.DPNOTE ---
Met w/pt and his at bedside this morning, explained SW role and discussed therapy recommendation for SNF. Pt hopeful he can go home, but HH will not be an option d/t spinal surgery, surgeon will (likely)not order HH. Spouse reiterates that pt will need to be able to get up and walk on his own. Pt and spouse discuss in home caregivers (?) this HEADLINE WRITER discusses SNF benefit w/Medicare and encouraged them both to strongly consider rehab for safe DCP. OT Argelia at bedside as well and about to begin her morning eval. Pt/spouse don't seem to want to discuss SNF as a DCP option today. HEADLINE WRITER team will follow closely, another attempt at this discussion Wednesday. GIDEON Discharge Planning/Care Management Advanced directive, confirm from FAMILY Start: 05/05/18 13:29 Freq: Q24H Status: Active Protocol: Document 05/05/18 12:11 CEW (Rec: 05/05/18 14:12 CEW [id number]) Advance Directive, confirm on record Time 08:00 Person contacted Spouse Copy received Yes Document 05/06/18 01:55 (Rec: 05/06/18 01:58 [id number]) Advance Directive, confirm on record Time 08:00 Person contacted Spouse Copy received Yes Discharge Assessment Start: 05/05/18 15:45 Freq: Status: Active Protocol: Document 05/05/18 15:46 GIDEON (Rec: 05/05/18 15:53 [id number]) Discharge Planning Assessment Assigned Molasses Feed Mixer Jazzmine Biswas MSW DPOA/Assigned Designee Name Bryan Boateng, spouse Contact Information [phone] Advance Directives? Yes Advance Directives on File No History Provided By Patient Significant Other Medical Record Prior Living Arrangements House Household Members spouse Type of transporation used prior to Drives own vehicle admit Independent with ADL's Yes Is patient alert and oriented? Yes Barriers to Discharge Yes Comment Pt just got to the acute care floor today after spinal surgery w/ Dr Chavez. Payer: Medicare/[employer]. Reviewed chart. Pt worked w/ PT this afternoon but unable to safely ambulate at this time, became unsteady, requird Mod A for controlled descent back into chair. Bed mobility completed only today. Spouse explains pt needs to be able to self transfer and walk on his own in order to safely return home, spouse can not assist much physically. Pt may require SNF. Following closely and will review DCP options w/pt and spouse Wednesday . JOSE J Beal Additional Comment Home vs SNF pending progress w /therapy team. Review Status In Process
[2018-05-06] MEDS: HYDROCODONE/ACET 5/325 TABLET 2 TAB PO (20:13)
[2018-05-06] MEDS: LATANOPROST 0.005% OPHTH 2.5 ML 1 DROPS EYE-RIGHT (20:55)
[2018-05-06] MEDS: FINASTERIDE 5 MG TABLET PO (20:57)
[2018-05-06] MEDS: HYDROXYCHLOROQUINE 200 MG TABLET PO (20:57)
[2018-05-06] MEDS: ASPIRIN EC 81 MG TABLET PO (20:58)
[2018-05-06] MEDS: SENNOSIDES 8.6 MG TABLET 17.2 MG PO (20:59)
[2018-05-06] MEDS: TAMSULOSIN 0.4 MG CAPSULE PO (21:03)
[2018-05-06] MEDS: SIMVASTATIN 40 MG TABLET PO (21:03)
[2018-05-06] MEDS: ZOLPIDEM 5 MG TABLET PO (23:36)
[2018-05-07] MEDS: LACTATED RINGERS 1,000 ML 125 ML IV (03:58)
[2018-05-07 06:36] VITALS: BP 141/65; PULSE 62; RESP 18; O2SAT 96
[2018-05-07] MEDS: HYDROCODONE/ACET 5/325 TABLET 1 TAB PO (06:37)
--- NOTE | 2018-05-07 08:15 | PM.PNPO.1 ---
Subjective Date Patient Seen: 05/07/18 Time Patient Seen: 08:15 Interval history: He is doing well. Has been up with physical therapy and able to get up and down and in and out of bed. His reports that he was still little bit shaky with walking yesterday. However, he seems to be getting stronger compared to how he was preoperatively. Exam Vital Signs (past 8 hours): - 05/07/18 06:36 Pulse Rate 62 Respiratory Rate 18 Blood Pressure 141/65 H Pulse Oximetry 96 Oxygen Delivery Method Room Air Const Orientation: alert and oriented x3 Back/Spine/Pelvis Other: Dressing CDI. 5/5 motor both lower extremities Objective Labs Result Diagrams: 05/06/18 05:35 Assessment & Plan Post-op Postoperative Procedures Operation Date: 05/05/18 07:45 Actual Procedures Side Surgeon p T11-12 Laminectomy w/Instru. fusion w/bone graft Not Applicable Alberto Chavez MD He is doing very well. Continue to mobilize with physical therapy. Discharge home if he passes physical therapy today. If not tomorrow
[2018-05-07 09:00] VITALS: BP 137/62; PULSE 77; RESP 18; TEMP 36.3; O2SAT 97
[2018-05-07] MEDS: SILDENAFIL 20 MG TABLET 50 MG PO (09:12)
[2018-05-07] MEDS: GABAPENTIN 300 MG CAPSULE 600 MG PO (09:13)
[2018-05-07] MEDS: DOCUSATE 100 MG CAPSULE PO (09:13)
[2018-05-07] MEDS: FUROSEMIDE 40 MG TABLET PO (09:14)
[2018-05-07] MEDS: POTASSIUM CHLORIDE 10 MEQ TAB PO (09:14)
[2018-05-07] MEDS: TIMOLOL 0.5% OPHTH 1 DROPS EYE-BOTH (09:14)
[2018-05-07 09:20] VITALS: PULSE 76; RESP 16; O2SAT 97
--- NOTE | 2018-05-07 09:20 | PT.IPTN ---
Current Diagnoses Spondylolisthesis, lumbar region (05/05/18) Other spondylosis with myelopathy, thoracic region (05/05/18) Spinal stenosis, lumbar region with neurogenic claudication (05/05/18) Other cervical disc degeneration, unspecified cervical region (05/05/18) Surgery Performed Operation Date: 05/05/18 07:45 Actual Procedures p T11-12 Laminectomy w/Instru. fusion w/bone graft(Not Applicable) - Alberto Chavez MD Physical Therapy Treatment Note M2 PT-IP Current Condition Start: 05/05/18 15:15 Freq: NEEDED Status: Active Protocol: Document 05/05/18 13:50 AB (Rec: 05/05/18 15:39 AB [id number]) Physical Therapy Current Condition Current Condition Evaluation Date 05/05/18 Treatment Diagnosis s/p T11-T12 lami/posterior fusion; difficulty in walking Onset Date 05/05/18 Precautions Lumbar Precautions Log Roll No Twisting Limit Bending Lifting Restriction of 10 lbs Gait Belt above Incisional Area M3 PT-IP Subjective Start: 05/05/18 15:15 Freq: NEEDED Status: Active Protocol: Document 05/07/18 09:20 GGD (Rec: 05/07/18 12:07 GGD [email or web address]) Subjective Physical Therapy Visit Type Type Treatment Note Visit Start Time 08:50 Visit Stop Time 09:20 Total Visit Minutes 30 Number of COMMUNICATIONS CONSULTANT Visits 1 Physical Therapy Visit Comments Patient Comments Pt states he feels ready to go home. Therapy Pain Assessment Pain When Pain Assessed At Rest Pain Present Pain Present Pain Reported M4 PT-IP Mobility and Gait Start: 05/05/18 15:15 Freq: NEEDED Status: Active Protocol: Document 05/07/18 09:20 GGD (Rec: 05/07/18 12:07 GGD [email or web address]) PT-Bed Mobility Assessment Rolling Type of Rolling Log Rolling Level of Assist Standby Assistance Supine to Sit Supine to Sit Standby Assistance Sit to Supine Sit to Supine Standby Assistance Scooting Scooting to Edge of Bed Standby Assistance PT-Transfer Assessment Sit to and From Stand Sit to and from Stand Contact Guard Assistance Use of Upper Extremities Equipment Transfer Assistive Device Gait Belt Front Wheeled Walker Orthotic/Prosthetic Devices or Brace: No Transfers Transfer Destination Bed Chair Transfer Ability Level of Assist Contact Guard Assistance Comments Mobility Comments Pt performed supine <> sit x 2 with step stool into high bed , same height as home. He need min cues for full log. Gait Assessment Gait Gait Assistance Required: Contact Guard Assist Distance (Feet) 320 Able to Maintain Weight Bearing Status Yes During Gait Assistive Devices Assistive Device Gait Belt Front Wheeled Walker Orthotic/Prosthetic Devices or Brace: No Gait Deviations General Gait Pattern Antalgic Decreased Stride Length Decreased Feet Clearance Factors Limiting Gait Function Factors Limiting Gait Function Decreased Activity Tolerance Decreased Strength Difficulty Following Directions Limited Range of Motion Pain Poor Balance Poor Safety Awareness Stair Climbing Assessment Evaluation Level of Assist On Stairs Minimal Assistance 1 Person Assistance Devices Stair Climbing Assistive Devices None Technique/Endurance Stair Climbing Direction Ascend and Descend Stair Climbing Technique Step Over Step Number of Steps Climbed 3 Query Text: Stair Climbing Set # Repetitions (reps) 2 Comments Stair Climbing Comments Pt used right wall and left hand hold assist. once with therapist and once with . M5 PT-IP Objective Assessments Start: 05/05/18 15:15 Freq: NEEDED Status: Active Protocol: Document 05/05/18 13:50 AB (Rec: 05/05/18 15:39 AB [id number]) Orientation Orientation/Cognition Level of Alertness Alert Orientation Name Age Birthday Month Date Year Day of Week Place Situation Language Function Ability No Deficits Noted Hard of Hearing Safety Awareness Decreased Safety Awareness Memory Description Short Term Impaired Gross Range of Motion Lower Extremity ROM Assessment Within Functional Limits Strength Lower Extremity Strength Assessment Within Functional Limits Muscle Tone Muscle Tone WNL Yes M6 PT-IP Treatment Start: 05/05/18 15:15 Freq: NEEDED Status: Active Protocol: Document 05/07/18 09:20 GGD (Rec: 05/07/18 12:07 GGD [email or web address]) Physical Therapy Treatment Education Education Provided Precautions Safety M7 PT-IP Assessment and Plan Start: 05/05/18 15:15 Freq: NEEDED Status: Active Protocol: Document 05/07/18 09:20 GGD (Rec: 05/07/18 12:07 GGD [email or web address]) PT Summary Assessment and Plan Summary Assessment Summary Pt improving in mobility. He need cues for safe pace with gait and full log roll. Pt was safe with stair mobility. He' s is able to assist and cue pt as needed. Pt is safe for home D/C when medically stable. Frequency of Treatment Frequency Of Treatment Twice a Day Recommendations To Nursing Amount of Assist Needed 1 Person Assist Discharge Recommendations PT Discharge Recommendations Home with Assistance
--- NOTE | 2018-05-07 10:52 | OT.IP.TRT ---
Current Diagnoses Spondylolisthesis, lumbar region (05/05/18) Other spondylosis with myelopathy, thoracic region (05/05/18) Spinal stenosis, lumbar region with neurogenic claudication (05/05/18) Other cervical disc degeneration, unspecified cervical region (05/05/18) Surgery Performed Operation Date: 05/05/18 07:45 Actual Procedures p T11-12 Laminectomy w/Instru. fusion w/bone graft(Not Applicable) - Alberto Chavez MD Occupational Therapy Treatment Note M2 OT-IP Current Condition Start: 05/06/18 08:58 Freq: Status: Active Protocol: Document 05/06/18 09:32 [facility] (Rec: 05/06/18 09:59 [facility] [email or web address]) Occupational Therapy Current Condition Current Condition Evaluation Date 05/06/18 Treatment Diagnosis T11-12 Laminectomy Post Operative Precautions Lumbar Precautions Log Roll No Twisting Limit Bending Lifting Restriction of 10 lbs Gait Belt above Incisional Area M3 OT- IP Subjective and Pain Start: 05/06/18 08:58 Freq: Status: Active Protocol: Document 05/07/18 10:36 [facility] (Rec: 05/07/18 10:52 [facility] [email or web address]) OT- Subjective Occupational Therapy Visit Type Type Treatment Note Visit Start Time 08:55 Visit Stop Time 09:25 Total Visit Minutes 65 Notes Pt also seen from [id number] for caregiver training with for showering needs. Occupational Therapy Visit Comments Patient Comments Pt feeling ready to go home. OT Pain Assessment Pain When Pain Assessed At Rest Pain Present Pain Present Denied Pain M4 OT- IP ADL's Start: 05/06/18 08:58 Freq: Status: Active Protocol: Document 05/07/18 10:36 [facility] (Rec: 05/07/18 10:52 [facility] [email or web address]) OT ADL-Dressing General Eval Upper Body Dressing Ability Standby Assistance Moderate Assistance Areas Needing Assistance Underpants/Brief Pants/Shorts Shoes Assistive Devices Dressing Assistive Devices Field Gauger Sock Aid Comments OT Dressing Comments Pt needing cues to be sure not to bend forwards while doing LB dressing needs. Educated pt and regarding AED for LB dressing needs. Pt still needing occasional cues from to incorporate back precautions for ADl needs. OT ADL-Toileting Comments OT Toileting Comments Catheter just taken out. Suggested pt to stand from hygiene after bowel movement . Pt does have long arms and states can just lean and reach adequately. OT ADL-Bathing Bathing Type Bathing Type Shower General Evaluation Bathing Ability Moderate Assistance Areas Needing Assistance Wash/Dry Upper Body Wash/Dry Lower Extremities Devices Bathing Equipment Hand Held Shower Sprayer Shower Chair with Arms Grab Bars Comments OT Bathing Comments Pt able to use long handled sponge for showering and needing assist for wash/dry back and dry his legs/feet. Pt dropped item in the shower and reflexively trying to bend over to retrieve object. Pt stopped from bending and reminded of back precautions. Pt's states does have a shower chair at home and that she will be able to assist pt as well. M5 OT- IP IADL's Start: 05/06/18 08:58 Freq: Status: Active Protocol: Document 05/06/18 09:32 [facility] (Rec: 05/06/18 09:59 [facility] [email or web address]) OT-Instrumental Activities of Daily Living Medication Management Medication Management Caregiver Administers Money Management Money Management Caregiver Provides Assistance Meal Preparation Meal Preparation Caregiver Provides Assist M6 OT- IP Functional Cognition Start: 05/06/18 08:58 Freq: Status: Active Protocol: Document 05/07/18 10:36 [facility] (Rec: 05/07/18 10:52 [facility] [email or web address]) Cognitive Factors Limiting Selfcare Function Cognitive Ability Level of Alertness Alert Patient Orientation Name Place Situation Attention Span Ability Capable of Focused Attention Capable of Sustained Attention Ability to Follow Commands Able to Follow One Step Commands Memory Description Short Term Impaired Safety Awareness Decreased Ability to Apply Precautions Underestimates Need for Assistance Cognitive Comments Cognitive Assessment Comments Pt still a bit impulsive and needing vc to slow down, use of BUE to push up from surfaces versus just grab FWW to stand, and to use FWW to back up all the way to the recliner before sitting versus reach sideways before sitting . OT- Vision and Hearing OT- Vision Assessment Vision Assessment Comments Pt not complaining of any dizziness or blurred vision today. M7 OT- IP Mobility and Balance Start: 05/06/18 08:58 Freq: Status: Active Protocol: Document 05/07/18 10:36 [facility] (Rec: 05/07/18 10:52 [facility] [email or web address]) OT- Bed Mobility Assessment Rolling Type of Rolling Roll to Right Level of Assistance Standby Assistance Supine to Sit Supine to Sit Assist Standby Assistance 1 Person Assistance Scooting Scooting to Edge of Bed Standby Assistance 1 Person Assistance OT-Transfer Assessment Sit to and From Stand Sit to and from Stand Standby Assistance 1 Person Assistance Transfers Transfer Ability Standby Assistance Contact Guard Assistance 1 Person Assistance Technique Transfer Destination Car Shower Stall Transfer Technique Stand Pivot Devices Transfer Assistive Devices Gait Belt Front Wheeled Walker Comments Mobility Comments Pt able to practice getting in and out of high bed and use of stool to step up to help get into the bed. Pt's able to show good safety and understanding for bed mobility needs. Did suggest if pt having more pain and needing more assist may benefit from bed rail. OT- Balance Assessment Sitting Balance and Reactions Static Sitting Balance Ability Normal Dynamic Sitting Balance Ability Normal Standing Balance and Reactions Static Standing Balance Ability Good M8 OT- IP Objective Assessments Start: 05/06/18 08:58 Freq: Status: Active Protocol: Document 05/06/18 09:32 [facility] (Rec: 05/06/18 09:59 [facility] [email or web address]) OT Gross Range of Motion Upper Extremity Range of Motion Assessment Left Impaired ROM Impairments RUE WFL. 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 OT Strength Comments Strength Comments RUE 5/5, elbow to distal 5/5 for LUE. M9 OT- IP Assessment and Plan Start: 05/06/18 08:58 Freq: Status: Active Protocol: Document 05/07/18 10:36 [facility] (Rec: 05/07/18 10:52 [facility] [email or web address]) OT Summary Assessment and Plan Potential Rehabilitation Potential Good Analytic Complexity at Evaluation Low Summary Progress Towards Goals Progressing Toward Goals Assessment Summary Pt able to participate in caregiver training for steps, bed mobility, showering and dressing and able to show good safety and understanding. Pt still needing occasional safety cues and reminders of back precautions during ADL and functional mobility needs. Pt looking to go home today when medically ready, still waiting to urinate as catheter just taken out earlier. Frequency of Treatment Frequency Of Treatment Once a Day Discharge Recommendations OT Discharge Recommendations Home with Assistance
--- NOTE | 2018-05-07 11:24 | CM.DPC ---
DCP Discharge Home Per Ortho MD and PA, pt medically stable to d/c home today pending final PT/OT training with spouse present. Per PT/OT, pt did well today with spouse present for CG training and spouse will be available for showering today prior to d/c. SW met bedside with pt and spouse and explained role and provided pt's Medicare Message and pt and spouse acknowledged understanding and signed his Medicare Message. Pt and spouse confirm that they are feeling comfortable with d/c home today and aware who to call if questions or concerns come up. Plan: Patient to d/c home today via spouse POV after lunch. No SW needs at this time. JOSE J Tyson
[2018-05-07] MEDS: HYDROCODONE/ACET 5/325 TABLET 2 TAB PO (11:33)
[2018-05-07 11:51] VITALS: BP 121/46; PULSE 68; RESP 18; TEMP 36.4; O2SAT 95
--- NOTE | 2018-05-12 10:49 | PM.DS.1 ---
History of Present Illness Date Patient Seen: 05/07/18 Chief complaint: lumbar [id number] Narrative: Hospital day 3, postop day 2 following T11-12 laminectomy, posterior fusion and posterior screw fixation by Dr. Chavez. Patient has remained stable. Good pain control. Has been advancing with physical therapy. Patient be discharged to home after cleared by PT. Discharge Providers Date of admission: 05/05/18 06:18 Primary care physician: Giacomo Aguirre MD Consults: 05/05/18 12:20 Consult to Occupational Therapy Evaluate & Treat Comment: Physician Instructions: Evaluate and treat Consult to Physical Therapy Evaluate & Treat Comment: Physician Instructions: Evaluate and Treat Discharge provider: Niels Vanegas PA-C Discharge Date: 05/07/18 Summary Discharge Diagnosis: Status post T11-12 laminectomy, posterior fusion, posterior screw fixation. Hospital Course: Patient brought to hospital on 05/05/2018 for above-noted surgery. He remained stable postoperatively. Gradually advanced with physical therapy. Ready for discharge home on postop day 2. Status at Discharge Cognitive/behavioral status at discharge: Alert, oriented no acute distress. Functional status at discharge: uses cane/walker Overall status at discharge: patient is progressing back to baseline Time Spent with Patient Less than 30 minutes Exam Vital Signs (past 8 hours): Fraction of Inspired Oxygen 21 Oxygen Delivery Method Room Air Oxygen Flow Rate 0 Narrative Exam Narrative: Back. Dressing to thoracic area is dry without drainage or inflammation. Objective Labs Result Diagrams: 05/06/18 05:35 Discharge Plan Discharge Plan Patient Disposition: Home Discharge comment: f/u 1.5 wks Discharge Med Rec/Prescriptions Prescriptions: New docusate sodium 100 mg Capsule 100 mg PO BID Qty: 60 RF: 0 hydrocodone-acetaminophen 5-325 mg Tablet See Rx Instructions .ROUTE .COMPLEX PRN (Reason: Pain, Moderate (4-6)) Qty: 40 RF: 0 hydroxyzine pamoate 25 mg Capsule 25 mg PO Q4HR PRN (Reason: spasms) Qty: 20 RF: 0 Continued zolpidem 5 MG tablet 1 - 2 mg PO BEDTIME PRN (Reason: Sleep) Qty: 0 RF: 0 latanoprost [Xalatan] 0.005 % drops 1 drp EYE-RIGHT BEDTIME Qty: 0 RF: 0 timolol maleate 0.5 % drops 1 drp EYE-BOTH BID Qty: 0 RF: 0 furosemide 40 MG tablet 40 mg PO QAM Qty: 0 RF: 0 gabapentin 300 mg capsule 600 mg PO TID Qty: 180 RF: 2 sildenafil 100 mg Tablet 50 mg PO BID RF: 0 hydroxychloroquine 200 mg Tablet 200 mg PO BEDTIME RF: 0 Spiriva with HandiHaler 18 mcg Capsule, W/Inhalation Device 1 cap INHALATION DAILY RF: 0 potassium chloride 10 mEq capsule, extended release 10 meq PO DAILY RF: 0 losartan 50 mg tablet 50 mg PO BEDTIME RF: 0 simvastatin 40 mg tablet 40 mg PO BEDTIME RF: 0 aspirin [Aspir-81] 81 mg tablet,delayed release (DR/EC) 81 mg PO BEDTIME RF: 0 finasteride 5 mg tablet 5 mg PO BEDTIME RF: 0 tamsulosin 0.4 mg capsule 0.4 mg PO BEDTIME RF: 0 Discontinued hydrocodone-acetaminophen [[place]] 5 MG/325 MG tablet 1 - 2 tab PO Q4-6H PRN (Reason: pain) Qty: 0 RF: 0 Follow up/Referrals: Giacomo Aguirre MD [Primary Care Provider] - Provider Discharge Instructions Diet: Diet as Tolerated Activity: limited BLT 10 lbs max lift Skin/Wound/Dressing Care Report to your healthcare provider any signs of infection, such as:: chills, fever, night sweats, increased pain, unusual drainage and unusual redness Dressing: may change and shower POD#5 Visit Report/Discharge Packet Instructions: DI for Transforaminal Lumbar Interbody Fusion Stand Alone Forms: Surgery Discharge Visit Report Forms: Stroke Signs & Symptoms Discharge Data Primary Care Provider: Giacomo Aguirre Attending Provider: Alberto Chavez Admit Date/Time: 05/05/18 06:18 Discharges patient from system. Discharge Date/Time: 05/07/18 12:15
== END 2018-05-07 12:15 | disposition home or self-care (01) | DRG 460 ==
PROVIDERS: Admitting Provider Orthopaedic Surgery; Family Provider Family Medicine; PCP Family Medicine; Visit Provider Orthopaedic Surgery
PROC: 0RG60J1 Fusion of Thoracic Vertebral Joint with Synthetic Substitute, Posterior Approach, Posterior Column, Open Approach (ICD-10-PCS; principal; 2018-05-05 07:45)
DX: M48.04 Spinal stenosis, thoracic region (principal); M47.14 Other spondylosis with myelopathy, thoracic region; I50.32 Chronic diastolic (congestive) heart failure; G95.29 Other cord compression; M43.16 Spondylolisthesis, lumbar region; M48.062 Spinal stenosis, lumbar region with neurogenic claudication; J44.9 Chronic obstructive pulmonary disease, unspecified; Z87.891 Personal history of nicotine dependence; I25.10 Atherosclerotic heart disease of native coronary artery without angina pectoris; Z95.2 Presence of prosthetic heart valve; I73.9 Peripheral vascular disease, unspecified; E78.5 Hyperlipidemia, unspecified
CPT/HCPCS: 36415; 72072; 76000; 85014; 85018; 94760; 97116; 97162; 97165; 97530; 97535; C1776; J0595; J0690; J1100; J1170; J2274; J2704; J3010

== ENCOUNTER 2018-08-16 13:46 | Outpatient (CLI) | payer MEDICARE, SELFPAY ==
[2018-05-05 13:03] VITALS: BMI 27.4
[2018-08-16] VITALS (7 sets, daily range): BP systolic 121–153; BP diastolic 63–75; PULSE 59–74; RESP 16–18; TEMP 36.1; O2SAT 95–97
--- NOTE | 2018-08-16 | DI.RAD.S_ITS ---
PROCEDURE: PAIN L INTERLAMINAR/CAUDAL INJ INDICATIONS: SPINAL STENOSIS FINDINGS: Fluoroscopic spot filming was performed to verify placement of spinal needles at the L4- L5 level(s), as labeled on the films. Appropriate location(s) of the needle tip(s) was confirmed by injection of iodinated contrast. Dictated by: Dom Sinha M.D. on 08/16/2018 at 15:11 Approved by: Dom Sinha M.D. on 08/16/2018 at 15:12
[2018-08-16] MEDS: MIDAZOLAM 5 MG/5 ML VIAL IV (14:41)
[2018-08-16] MEDS: DEXAMETHASONE 10 MG/ML VIAL 20 MG INJ (14:45)
[2018-08-16] MEDS: IOPAMIDOL 15 ML VIAL 3 ML INJ (14:45)
[2018-08-16] MEDS: BETAMETHASONE 30 MG/5 ML MDV 6 MG INJ (14:45)
[2018-08-16] MEDS: BUPIVACAINE 0.25% (PF) VIAL 2 ML INJ (14:45)
--- NOTE | 2018-08-16 14:48 | PC.NURSE ---
ASSISTING PT OFF TABLE AND TRANSPORTING TO POST PROC AREA IN STABLE CONDITION
--- NOTE | 2018-08-16 15:33 | PC.NURSE ---
Pt returned via wheelchair awake and alert, able to move from w/c to chair with 2 person standby assist. Resumed monitoring from Ryann MCKEON.
--- NOTE | 2018-08-25 10:16 | P.PCN_ITS ---
Procedures Date/Time Date of procedure: 08/16/18 Time of procedure: 14:14 General Procedure description: PROVIDER: Gerson Dhillon DO Operative Note PREOP DIAGNOSIS 1. HNP WITH RADICULAR FEATURES, 2. MULTILEVEL CENTRAL STENOSIS, POST OP DIAGNOSIS 1. HNP WITH RADICULAR FEATURES, 2. MULTILEVEL CENTRAL STENOSIS PROCEDURES 1. FLUORSCOPICALLY GUIDED CONTRAST CONTROLLED INTERLAMINAR EPIDURAL STEROID INJECTION -L4/5 PHYSICIAN: Gerson Dhillon DO INDICATIONs: Avelino is referred by for treatment of Bilateral Foraminal Stenosis R>L LE symptoms. FINDINGS Multilevel Central Spinal Stenosis with Nerve Root Compression DESCRIPTION OF PROCEDURE Fluoroscopically guided, contrast-controlled L4/5 translaminar epidural steroid injection. Following denial of allergy and review of potential side effects and complications, including, but not necessarily limited to, infection, allergic reaction, local tissue breakdown, temporary as well as permanent nerve injury, paralysis, stroke and possible , the patient indicated that the patient understood and agreed to proceed. An informed consent document was signed by the patient, witnessed by a nurse, and placed in the patient's chart. Additionally, other treatment options including modalities, medications, and physical therapy were reviewed with the patient. After review of previous anaesthesic history and IV conscious sedation the patient was deemed safe to proceed with todays procedure with IV conscious sedation as ASA class II designation. Safety time-out was performed to confirm patient ID, procedure to be performed and site of procedure. IV sedation was accomplished with a combination of 3mg of Versed was administered by the RN after DO order, titrated to patient comfort during the course of the procedure while the patient remained responsive to all verbal commands In the prone position, following sterile prep and drape of the lumbar region, the L4/5 translaminar space was identified fluoroscopically. The skin was anesthetized via a 25-gauge, 1.5-inch needle with 1% lidocaine solution. At this point, a 22-gauge short bevel spinal needle was atraumatically introduced and advanced under fluoroscopic guidance into the region of the L4/5 trans laminar space. Depth was confirmed on lateral view. Radiological data, including multiple fluoroscopic views of the lumbar spine, reveal a spinal needle at the L4/5 translaminar space. Lateral views then show placement of the needle in the epidural space. Subsequent views show contrast material flowing superiorly and inferiorly in the epidural space. No vascular or intrathecal uptake is observed. At this point, using loss of resistance technique with saline and air, the epidural space was entered. This was confirmed following negative aspiration with injection of approximately 1.5 cc of Isovue 200, showing excellent epidural flow without vascular or intrathecal uptake. At this point, 1 cc of 1% lidocaine solution combined with 3cc or 20mg of dexamethasone and 6mg betamethasone was injected without incident. The patient tolerated the procedure well without signs or symptoms of complications prior to transfer to the recovery area continued monitoring without incident. The patient was then transferred to the recovery area where they were observed for an appropriate period of time after the injection. The patient reported a VAS score of 6 prior to the procedure and a post- procedure VAS of 0. Total Fluoroscopy Time: 11.8 seconds, 8.99 mGy Total Conscious Sedation Time: 24min POST OP INSTRUCTIONS The patient was provided a Pain Log to continue to record their response to the target-specific procedure prior to follow-up visit with their referring physician. Additionally, specific post-injection care instructions and a contact number to our office were provided if concerns arise regarding possible complications associated with the procedure are suspected. Gerson Dhillon, Complications: none
== END 2018-08-16 15:20 ==
LOC: RAD 13:47
PROVIDERS: PCP Family Medicine; Visit Provider Physical Medicine & Rehabilitation
DX: M48.062 Spinal stenosis, lumbar region with neurogenic claudication (principal); M51.16 Intervertebral disc disorders with radiculopathy, lumbar region
CPT/HCPCS: 62323; 99152; J0702; J1100; J2250; J3010

== ENCOUNTER 2018-10-06 14:38 | Outpatient (CLI) | payer MEDICARE, SELFPAY ==
[2018-09-14 15:53] VITALS: BMI 27.4
[2018-10-06] VITALS (8 sets, daily range): BP systolic 110–144; BP diastolic 56–66; PULSE 70–79; RESP 16; TEMP 36.4; O2SAT 96–100
--- NOTE | 2018-10-06 14:40 | DI.RAD.S_ITS ---
PROCEDURE: PAIN L/SI FACET INJ/BLK 1STL INDICATIONS: SPONDLYOSIS FINDINGS: Fluoroscopic spot filming was performed to verify placement of spinal needles on the right and on the left at the L4, L5, and S1 levels, as labeled on the films. Appropriate location(s) of the needle tip(s) was confirmed by injection of iodinated contrast. IMPRESSION: Intraprocedural examination within normal limits. Dictated by: Jamel Kapadia M.D. on 10/06/2018 at 15:59 Approved by: Jamel Kapadia M.D. on 10/06/2018 at 15:59
[2018-10-06] MEDS: MIDAZOLAM 5 MG/5 ML VIAL IV (15:25)
[2018-10-06] MEDS: fentaNYL 100 MCG/2 ML INJ 50 MCG IV (15:25)
[2018-10-06] MEDS: BUPIVACAINE 0.5% (PF) VIAL 5 ML INJ (15:29)
[2018-10-06] MEDS: IOPAMIDOL 15 ML VIAL 3 ML INJ (15:30)
[2018-10-06] MEDS: BETAMETHASONE 30 MG/5 ML MDV 12 MG INJ (15:30)
[2018-10-06] MEDS: LIDOCAINE 1% 20 ML INJ 5 ML INJ (15:30)
--- NOTE | 2018-10-06 15:37 | PC.NURSE ---
pt tolerated procedure well. Pt able to get off table with standby assist. Transferred pt via wheelchair to pre procedure room for continued monitoring with Ryann MCKEON.
--- NOTE | 2018-10-06 15:43 | PM.PROC.1 ---
Procedures Date/Time Date of procedure: 10/06/18 Time of procedure: 15:43 General Procedure description: Procedure description: 1. FACET ARTHROPATHY PROCEDURES: 1. BILATERAL- L4, L5 and S1 MB BLOCKS PHYSICIAN: DO MURIEL Jha Avelino is referred by Dr. Aguirre for treatment of Bilateral Axial LBP. DESCRIPTION OF PROCEDURE Fluoroscopically guided, contrast-controlled bilateral L4, L5 and S1 medial branch blocks with 0.5cc of 0.5% Marcaine. Following review of allergy and review of potential side effects and complications, including, but not necessarily limited to, infection, allergic reaction, local tissue breakdown, nerve injury, paralysis, stroke and possible , the patient indicated that the patient understood and agreed to proceed. An informed consent document was signed by the patient, witnessed by a nurse, and placed in the patient's chart. After review of previous anaesthesic history and IV conscious sedation the patient was deemed safe to proceed with todays procedure with IV conscious sedation as ASA class II designation. Safety time-out was performed to confirm patient ID, procedure to be performed and site of procedure. IV sedation was accomplished with a combination of 2mg of Versed and 50mcg of Fentanyl was administered by the RN after DO order, titrated to patient comfort during the course of the procedure while the patient remained responsive to all verbal commands In the prone position, following sterile prep and drape of the lumbar region, the right L4, L5 and S1 anatomical location of the medial branch of the dorsal ramus was identified fluoroscopically. Subsequently an anesthetic skin wheal using 1% lidocaine solution was initiated at each of the anatomical spots. Subsequently then a 22-gauge 3.5-inch spinal needle was atraumatically introduced and advanced under fluoroscopic guidance at each of the corresponding sites at the right L4, L5 and S1 MB. After negative aspiration, 0.2 cc of Isovue 200 was injected, confirming placement without vascular or intrathecal uptake. Subsequently then 0.5 cc of 0.5% Marcaine solution was injected at each of the corresponding sites at the right L4, L5 and S1 medial branch locations. The identical procedure was replicated on the left. The patient tolerated the procedure well without signs or symptoms of complications prior to transfer to the recovery area continued monitoring without incident. Post-procedure, the patient was monitored initiating provocative activities to measure the amount of relief from block of the facetogenic pain. The patient reported a VAS of 7 prior to the procedure and a post-procedure VAS of 1. It has been a pleasure to assist in the diagnostic and therapeutic care of your patient. Total Fluoroscopy Time: 24.8 seconds Total Conscious Sedation Time: 24min POST OP INSTRUCTIONS The patient was provided with a Pain Log to complete over the next several hours and subsequent days prior to the patient's follow up with the ordering physician. 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 The patient is aware, was provided, once again, with a Pain Log and will follow up with the referring physician for review and clinical correlation Gerson Dhillon DO Complications: none
== END 2018-10-06 16:11 | disposition home or self-care (01) ==
LOC: RAD 14:39
PROVIDERS: PCP Family Medicine; Visit Provider Physical Medicine & Rehabilitation
DX: M47.816 Spondylosis without myelopathy or radiculopathy, lumbar region (principal); M47.817 Spondylosis without myelopathy or radiculopathy, lumbosacral region
CPT/HCPCS: 64493; 64494; 99152; J0702; J2250; J3010

== ENCOUNTER 2018-11-13 09:40 | Inpatient (IN) | payer MEDICARE, SELFPAY ==
[2018-09-14 15:53] VITALS: BMI 27.4
[2018-11-13] VITALS (20 sets, daily range): BP systolic 95–142; BP diastolic 45–85; PULSE 61–109; RESP 15–22; TEMP 36.7–39.7; O2SAT 89–99; BMI 25.8; BMI 25.1
--- NOTE | 2018-11-13 09:53 | DI.RAD.S_ITS ---
PROCEDURE: XR CHEST 1V INDICATIONS: cough// fever TECHNIQUE: One view of the chest was acquired. COMPARISON: [facility], CHEST 1 VIEW, 02/18/2017, 11:39. [facility], CHEST 2 VIEW, 02/21/2017, 12:51. [facility], , XR THORACIC SPINE 3V, 05/05/2018, 8:31. [facility], CHEST 2 VIEW, 02/22/2017, 19:27. FINDINGS: Surgical changes and devices: Lower thoracic fixation hardware is seen. Sternotomy wires and an aortic valve prosthesis can be seen. Lungs and pleura: Lungs are clear. No pleural effusions or pneumothorax. Mediastinum: Mediastinal contours appear normal. Heart size is normal. Atherosclerotic calcification of the aortic arch is noted. Bones and chest wall: No suspicious bony lesions. Age-appropriate bony degenerative changes are seen. Overlying soft tissues appear unremarkable. IMPRESSION: Portable chest within normal limits. If there is clinical concern for a developing pulmonary process, a short-term followup chest series (with PA and lateral views, performed in deep inspiration) is suggested for further evaluation. Postoperative and degenerative changes are seen, including interval placement of lower thoracic spine fixation hardware. Dictated by: Jamel Kapadia M.D. on 11/13/2018 at 9:49 Approved by: Jamel Kapadia M.D. on 11/13/2018 at 9:50
[2018-11-13] MEDS: ALBUTEROL/IPRATROPIUM 3 ML AMPUL INH ×3 (10:01→19:31)
--- NOTE | 2018-11-13 10:02 | ED.URI ---
HPI - URI/Sore Throat General Chief Complaint: Upper Respiratory Symptoms Stated Complaint: Bad cold Time Seen by Provider: 11/13/18 09:53 Source: patient Mode of arrival: ambulatory Limitations: no limitations History of Present Illness HPI Narrative: Patient is 83-year-old male with history of COPD who presents with fever and cough. states that he thought was a sore throat 3 days ago however has progressively gotten worse. she has noticed increasing productive cough. She states he fell 3 times last night but no injuries. She also states he is definitely more confused than normal. He denies any chest pain or worsening shortness. Is currently febrile fever of 102 in the emergency department. Related Data Home Medications Medication Instructions Recorded Confirmed furosemide 40 mg PO QAM #0 02/22/17 05/05/18 latanoprost [Xalatan] 1 drp EYE-RIGHT BEDTIME #0 02/22/17 05/05/18 timolol maleate 1 drp EYE-BOTH BID #0 02/22/17 05/05/18 zolpidem 1 - 2 mg PO BEDTIME PRN #0 02/22/17 05/05/18 aspirin 81 mg tablet,delayed 81 mg PO BEDTIME 02/25/18 05/05/18 release finasteride 5 mg tablet 5 mg PO BEDTIME 02/25/18 05/05/18 losartan 50 mg tablet 50 mg PO BEDTIME 02/25/18 05/05/18 potassium chloride ER 10 mEq 10 meq PO DAILY 02/25/18 05/05/18 capsule,extended release simvastatin 40 mg tablet 40 mg PO BEDTIME 02/25/18 05/05/18 tamsulosin 0.4 mg capsule 0.4 mg PO BEDTIME 02/25/18 05/05/18 Spiriva with HandiHaler 1 cap INHALATION DAILY 04/21/18 05/05/18 hydroxychloroquine 200 mg PO BEDTIME 04/21/18 05/05/18 sildenafil 50 mg PO BID 04/21/18 04/21/18 Previous Rx's Medication Instructions Recorded gabapentin 300 mg capsule 600 mg PO TID #180 cap 04/01/18 docusate sodium 100 mg PO BID #60 cap 05/07/18 Allergies Allergy/AdvReac Type Severity Reaction Status Date / Time No Known Drug Allergies Allergy Verified 11/13/18 09:58 Review of Systems Review of Systems ROS Unobtainable: All systems reviewed & are unremarkable except as noted in HPI and below Constitutional Reports body ache(s), Reports fever(s), Reports frequent falls and Reports weakness Cardiovascular Denies chest pain, Denies irregular heart rhythm, Denies lightheadedness, Denies palpitations and Denies orthopnea Respiratory Reports as per HPI, Reports change in phlegm color, Reports cough and Reports wheezing Gastrointestinal Gastrointestinal: Denies abdominal pain, Denies change in bowel habits, Denies diarrhea, Denies nausea and Denies vomiting Musculoskeletal Denies back pain, Denies muscle weakness, Denies numbness and Denies tingling Integumentary/Breasts Denies pruritus, Denies erythema, Denies rash and Denies wounds Neurologic Reports frequent falls, Denies numbness, Denies tingling and Reports weakness Endocrine Denies palpitations Allergic/Immunologic Reports wheezing [facility] Medical History Acute on chronic diastolic congestive heart failure (Acute) Amputation of finger, left (Acute) Arthritis (Acute) Back pain (Acute) Bleeds easily (Acute) COPD (chronic obstructive pulmonary disease) (Acute) Carotid artery disease (Acute) Cervical arthritis (Acute) Chronic diastolic congestive heart failure (Acute) Dyslipidemia (Acute) Easy bruisability (Acute) Enlarged prostate (Acute) Graves' eye disease (Acute) Hearing impaired (Acute) Left shoulder pain (Acute) Mitral valve regurgitation (Acute) 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) Peripheral arterial disease (Acute) Rash (Acute) Rheumatoid arthritis (Acute) Shingles (Acute) Thoracic spinal stenosis (Acute) Surgical History H/O cardiac catheterization (Acute ~2003) History of right cataract extraction (Acute) Hx of tonsillectomy (Acute) S/P aortic valve replacement with bioprosthetic valve (Acute ~2003) Social History household members: spouse Smoking Status: Former smoker alcohol intake: current Social History household members: spouse Smoking Status: Former smoker alcohol intake: current Exam Initial Vital Signs Initial Vital Signs: Vital Signs Temperature 102.4 F H 11/13/18 09:53 Pulse Rate 109 H 11/13/18 09:53 Respiratory Rate 22 11/13/18 09:53 Blood Pressure 105/52 L 11/13/18 09:53 Pulse Oximetry 92 11/13/18 09:53 GENERAL: Alert elderly male no acute distress HEENT: Head atraumatic,EOMI, pupils reactive, face symmetric, moist mucous membranes CARDIOVASCULAR: Regular rate and rhythm without murmurs, rubs or gallops. RESPIRATORY: Slightly scattered rales and wheezes no significant respiratory distress ABDOMEN: Soft, nontender. Normoactive bowel sounds all 4 quadrants. No guarding or rebound. : No CVA tenderness EXTREMITIES: Normal range of motion, no clubbing or edema. Neurovascularly intact NEUROLOGICAL: Alert and oriented x4.Normal gait and speech. Cranial nerves II through XII grossly intact. SKIN: Warm, dry, no laceration, no petechiae, no rashes or lesions. Scores CURB-65 Confusion: Yes BUN >19mg/dL (>7mmol/L): No Respiratory rate greater or equal to 30: No SBP <90mmHg or DBP less or equal to 60mmHg: No Age 65 or Older: Yes CURB-65 Total: 2 Score 0-1 Outpatient care, Score 2 Inpt vs. Obs, Score 3 or over Inpt admit with ICU for score of 4-5 GCS Stone coma scale eye opening: Spontaneous Stone coma scale verbal response: Confused Stone coma scale motor response: Obey commands [place] coma scale total score: 14 Course Orders Ordered: ED Orders 11/13/18 09:53 XR chest 1V Stat 11/13/18 09:55 B Type Natriuretic Peptide Stat Complete Blood Count AUTO DIFF Stat Comprehensive Metabolic Panel Stat Lactate (Lactic Acid) Stat Partial Thromboplastin Time Stat Procalcitonin Stat Prothrombin Time INR Stat Troponin & CK Cardiac Panel Stat EKG-12 Lead Stat 11/13/18 10:57 Blood Culture Stat Discontinued Medications Acetaminophen (Tylenol) 975 mg PO NOW ONE Stop: 11/13/18 10:05 Last Admin: 11/13/18 10:16 Dose: 975 mg Albuterol/Ipratropium (Duoneb) 3 ml INH NOW ONE Stop: 11/13/18 09:54 Last Admin: 11/13/18 10:01 Dose: 3 ml Sodium Chloride (Normal Saline 0.9%) 1,000 mls @ 1,000 mls/hr IV BOLUS ONE Stop: 11/13/18 11:03 Last Infusion: 11/13/18 11:17 Dose: 0 mls/hr Admin: 11/13/18 10:16 Dose: 1,000 mls/hr Ceftriaxone Sodium/Dextrose (Rocephin) 1 gm in 50 mls @ 100 mls/hr IV NOW ONE Stop: 11/13/18 11:25 Last Infusion: 11/13/18 11:50 Dose: 0 mls/hr Admin: 11/13/18 11:23 Dose: 100 mls/hr Azithromycin 500 mg/ Dextrose 250 mls @ 250 mls/hr IV NOW ONE Stop: 11/13/18 10:57 Last Infusion: 11/13/18 12:48 Dose: 0 mls/hr Admin: 11/13/18 11:51 Dose: 250 mls/hr Vital Signs - 8 hr 11/13/18 09:53 11/13/18 10:02 11/13/18 10:16 Temperature 102.4 F H 102.4 F H Pulse Rate 109 H 88 Respiratory Rate 22 17 Blood Pressure 105/52 L Blood Pressure [Right Arm] Pulse Oximetry 92 95 11/13/18 11:12 11/13/18 11:18 11/13/18 11:19 Temperature 99.9 F H 99.9 F H Pulse Rate 79 Respiratory Rate 20 Blood Pressure Blood Pressure [Right Arm] 103/47 L Pulse Oximetry 89 L 97 11/13/18 12:00 Temperature Pulse Rate 79 Respiratory Rate 18 Blood Pressure Blood Pressure [Right Arm] 95/45 L Pulse Oximetry 99 MDM - URI/Sore Throat Lab Data Attestation: I reviewed the patient's lab results. Result diagrams: 11/13/18 09:55 11/13/18 09:55 Lab Results 11/13/18 11/13/18 11/13/18 Range/Units 09:55 09:55 09:55 WBC 13.4 H (4.5-11.0) X10^3/uL RBC 3.49 L (4.5-5.9) X10^6/uL Hgb 10.3 L (13.5-17.5) g/dL Hct 31.7 L (41-53) % MCV 91.0 (80-100) fL MCH 29.6 (26-34) PG MCHC 32.6 (30-36) % RDW 16.7 H (11.6-14.8) % Plt Count 434 H (150-400) X10^3/uL Neut % (Auto) 76.8 H (50-75) % Lymph % (Auto) 6.1 L (25-40) % [place] % (Auto) 15.6 H (3-14) % Eos % (Auto) 1.1 L (2-4) % Baso % (Auto) 0.4 (0-2) % Neut # (Auto) 95514 H (8761-7260) /uL Lymph # (Auto) 800 L (4989-1374) /uL [place] # (Auto) 2100 H (0-900) /uL Eos # (Auto) 200 (0-450) /uL Baso # (Auto) 100 (0-100) /uL PT 13.0 H (10.1-12.7) SECONDS INR 1.1 (0.9-1.3) APTT 30 (26.4-36.2) SECONDS Sodium 135 L (137-145) mmol/L Potassium 4.2 (3.4-5.1) mmol/L Chloride 101 (98-107) mmol/L Carbon Dioxide 24 (22-32) mmol/L BUN 13 (9-20) mg/dL Creatinine 0.90 (0.66-1.25) mg/dL Estimated GFR > 60.0 (>60) mL/min BUN/Creatinine Ratio 14.4 (6-22) Glucose 148 H (80-110) mg/dL Lactate (0.7-2.1) mmol/L Calcium 9.1 (8.4-10.2) mg/dL Total Bilirubin 0.6 (0.2-1.3) mg/dL AST 24 (17-59) IU/L ALT 22 (21-72) IU/L Alkaline Phosphatase 67 (38-126) U/L Total Creatine Kinase 68 (55-170) U/L CK-MB (CK-2) TNP CK-MB (CK-2) Rel Index TNP Troponin I 0.031 (0.01-0.034) ng/mL B-Natriuretic Peptide (<100) Total Protein 6.8 (6.3-8.2) g/dL Albumin 3.8 (3.5-5.0) g/dL Globulin 3.0 (1.7-4.1) g/dL Albumin/Globulin Ratio 1.3 (1.0-2.8) Procalcitonin (<0.5) ng/mL 11/13/18 11/13/18 11/13/18 Range/Units 09:55 09:55 09:55 WBC (4.5-11.0) X10^3/uL RBC (4.5-5.9) X10^6/uL Hgb (13.5-17.5) g/dL Hct (41-53) % MCV (80-100) fL MCH (26-34) PG MCHC (30-36) % RDW (11.6-14.8) % Plt Count (150-400) X10^3/uL Neut % (Auto) (50-75) % Lymph % (Auto) (25-40) % [place] % (Auto) (3-14) % Eos % (Auto) (2-4) % Baso % (Auto) (0-2) % Neut # (Auto) (9975-9642) /uL Lymph # (Auto) (0964-1889) /uL [place] # (Auto) (0-900) /uL Eos # (Auto) (0-450) /uL Baso # (Auto) (0-100) /uL PT (10.1-12.7) SECONDS INR (0.9-1.3) APTT (26.4-36.2) SECONDS Sodium (137-145) mmol/L Potassium (3.4-5.1) mmol/L Chloride (98-107) mmol/L Carbon Dioxide (22-32) mmol/L BUN (9-20) mg/dL Creatinine (0.66-1.25) mg/dL Estimated GFR (>60) mL/min BUN/Creatinine Ratio (6-22) Glucose (80-110) mg/dL Lactate 1.7 (0.7-2.1) mmol/L Calcium (8.4-10.2) mg/dL Total Bilirubin (0.2-1.3) mg/dL AST (17-59) IU/L ALT (21-72) IU/L Alkaline Phosphatase (38-126) U/L Total Creatine Kinase (55-170) U/L CK-MB (CK-2) CK-MB (CK-2) Rel Index Troponin I (0.01-0.034) ng/mL B-Natriuretic Peptide 185 H (<100) Total Protein (6.3-8.2) g/dL Albumin (3.5-5.0) g/dL Globulin (1.7-4.1) g/dL Albumin/Globulin Ratio (1.0-2.8) Procalcitonin 0.05 (<0.5) ng/mL Urine Dip Bedside Urine Glucose Negative Bedside Urine Bilirubin - Negative Bedside Urine Ketone - Negative Urine Specific [place] 1.015 Bedside Urine Occult Blood - Negative Bedside Urine pH 5.5 Bedside Urine Protein +/- 15 Bedside Urine Urobilinogen - Negative Bedside Urine Nitrite - Negative Bedside Urine Leukocytes - Negative Esterase Imaging Data Chest x-ray: Radiologist's impression: report not in meditech but on PACS Portable chest within normal limits. If there is clinical concern for developing pulmonary process a short-term followup chest series with PA and lateral views performed in deep inspiration is suggested for further evaluation. Postoperative and degenerative changes are seen including interval placement of lower thoracic spine fixture ECG Data Attestation: I personally reviewed and interpreted this ECG as follows: Prior ECG tracings: available for review Interpretation: Normal sinus rhythm rate [address] changes AR interval [address] changes no T-wave inversion MDM Narrative Medical decision making narrative: Patient has fallen asleep. His answered most of the questions she deferred to her. She has obvious infection with clinical symptoms to suggest pneumonia. No pneumonia noted on x-ray. BNP is lower than previous at this time I do not suspect any congestive failure at this time. He does have a history of chronic diastolic failure. He tolerated 1 L fluid without diffilcuty. Blood pressure remains stable so sign of shock. Fever improved with Tylenol. No recent antibiotics or admission to hospital. At time will treat for community-acquired pneumonia with Rocephin and azithromycin.. Dr. Vidal, agrees to inpatient. Discharge Plan Departure Patient Disposition: Admitted As Inpatient Clinical Impression: Pneumonia Qualifiers: Pneumonia type: due to unspecified organism Laterality: unspecified laterality Lung location: unspecified part of lung Qualified Code(s): J18.9 - Pneumonia, unspecified organism Discharge Date/Time: 11/13/18 13:06 Interventions: ED Discharge Assessment Last Done: 11/13/18 12:59 Admit Date/Time: 11/13/18 11:56 Admit Provider: Niels Vidal
[2018-11-13 10:09] LABS: Add Manual Diff / Slide Review NO; Basophils Absolute Auto 100 /uL (0-100); Basophils Percent Auto 0.4 % (0-2); Eosinophils Absolute Auto 200 /uL (0-450); Eosinophils Percent Auto 1.1 % (2-4); Hematocrit 31.7 % (41-53); Hemoglobin 10.3 g/dL (13.5-17.5); Lymphocytes Absolute Auto 800 /uL (1100-4500); Lymphocytes Percent Auto 6.1 % (25-40); Mean Corpuscular HGB Conc 32.6 % (30-36); Mean Corpuscular Hemoglobin 29.6 PG (26-34); Monocytes Absolute Auto 2100 /uL (0-900); Monocytes Percent Auto 15.6 % (3-14); Neutrophils Absolute Auto 10300 /uL (1500-7000); Neutrophils Percent Auto 76.8 % (50-75); Platelet Count 434 X10^3/uL (150-400); Red Blood Cell Count 3.49 X10^6/uL (4.5-5.9); Red Cell Distribution Width 16.7 % (11.6-14.8); White Blood Cell Count 13.4 X10^3/uL (4.5-11.0)
[2018-11-13 10:14] LABS: INR 1.1 (0.9-1.3)
[2018-11-13] MEDS: SODIUM CHLORIDE 0.9% 1,000 ML 1000 ML IV (10:16)
[2018-11-13] MEDS: ACETAMINOPHEN 325 MG TABLET 975 MG PO (10:16)
[2018-11-13 10:17] LABS: PTT Partial Thromboplastin Tim 30 SECONDS (26.4-36.2)
[2018-11-13 10:20] LABS: Alanine Aminotransferase 22 IU/L (21-72); Albumin 3.8 g/dL (3.5-5.0); Albumin Globulin Ratio 1.3 (1.0-2.8); Alkaline Phosphatase 67 U/L (38-126); Aspartate Aminotransferase 24 IU/L (17-59); BUN Creatinine Ratio 14.4 (6-22); Bilirubin Total 0.6 mg/dL (0.2-1.3); Blood Urea Nitrogen 13 mg/dL (9-20); Calcium 9.1 mg/dL (8.4-10.2); Carbon Dioxide 24 mmol/L (22-32); Chloride 101 mmol/L (98-107); Creatine Kinase 68 U/L (55-170); Estimated Glomerular Filt Rate > 60.0 mL/min (>60); Glucose 148 mg/dL (80-110); HEMOLYSIS < 15 (0-50); Potassium 4.2 mmol/L (3.4-5.1); Sodium 135 mmol/L (137-145); Total Protein 6.8 g/dL (6.3-8.2)
[2018-11-13 10:21] LABS: Lactate (Lactic Acid) 1.7 mmol/L (0.7-2.1)
[2018-11-13 10:28] LABS: B Type Natriuretic Peptide 185 (<100)
[2018-11-13 10:32] LABS: Troponin I 0.031 ng/mL (0.01-0.034)
[2018-11-13 10:36] LABS: Procalcitonin 0.05 ng/mL (<0.5)
[2018-11-13] MEDS: CEFTRIAXONE 1 GM/50 ML FROZ.PIGGY IV (11:23)
[2018-11-13] MEDS: AZITHROMYCIN 500 MG in DEXTROSE 5% IN WATER 250 ML IV (11:51)
--- NOTE | 2018-11-13 12:44 | PM.HP.1 ---
History of Present Illness Date Patient Seen: 11/13/18 Time Patient Seen: 12:44 Chief complaint: Bad cold/Worsening Fever Narrative: Avelino Boateng is an 83-year-old male with past medical history of CHFpEF, COPD, hyperlipidemia, rheumatoid arthritis on hydroxychloroquine (however he states he only takes this about once a week currently), aortic valve replacement with a bioprosthetic valve who presented to the emergency room after 3 days of progressive symptoms starting with sore throat then leading to productive cough and fevers/chills. Three days ago the patient noticed sore throat and mild cough that progressed to productive cough with green sputum starting yesterday, and then this morning he was febrile at home to 102.5 so this is when he came to the emergency room. He states his shortness of breath is at baseline, however his says that he breathes a little bit harder currently even at rest. His baseline exercise tolerance is around 1 block. He states he has a chronic cough from COPD but nothing like this, and chronic back pain. He denies headaches, runny nose, sinus pain, chest pain, abdominal pain, nausea, vomiting, lower extremity edema, or rashes. He denies recent travel or sick contacts, but did go crabbing yesterday. Patient History Medical History Acute on chronic diastolic congestive heart failure (Acute) Amputation of finger, left (Acute) Arthritis (Acute) Back pain (Acute) Bleeds easily (Acute) COPD (chronic obstructive pulmonary disease) (Acute) Carotid artery disease (Acute) Cervical arthritis (Acute) Chronic diastolic congestive heart failure (Acute) Dyslipidemia (Acute) Easy bruisability (Acute) Enlarged prostate (Acute) Graves' eye disease (Acute) Hearing impaired (Acute) Left shoulder pain (Acute) Mitral valve regurgitation (Acute) 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) Peripheral arterial disease (Acute) Rash (Acute) Rheumatoid arthritis (Acute) Shingles (Acute) Thoracic spinal stenosis (Acute) Surgical History H/O cardiac catheterization (Acute ~2003) History of right cataract extraction (Acute) Hx of tonsillectomy (Acute) S/P aortic valve replacement with bioprosthetic valve (Acute ~2003) Social History household members: spouse Smoking Status: Former smoker alcohol intake: current Family & Social History Social History: household members spouse Safety & Behavioral: Feels Safe in Current Yes Environment Been Physically Hurt or No Threatened By a Person Tobacco & Substance use: Tobacco type cigarettes,pipe,smokeless tobacco Smoking Status Former smoker alcohol intake current alcohol intake frequency 0-2 drinks per day Substance Use Type does not use Meds Home Medications Medication Instructions Recorded Confirmed Type furosemide 40 mg PO QAM #0 02/22/17 11/13/18 History latanoprost [Xalatan] 1 drp EYE-RIGHT BEDTIME #0 02/22/17 11/13/18 History timolol maleate 1 drp EYE-BOTH BID #0 02/22/17 11/13/18 History zolpidem 1 - 2 mg PO BEDTIME PRN #0 02/22/17 11/13/18 History aspirin 81 mg tablet,delayed 81 mg PO BEDTIME 02/25/18 11/13/18 History release finasteride 5 mg tablet 5 mg PO BEDTIME 02/25/18 11/13/18 History losartan 50 mg tablet 50 mg PO BEDTIME 02/25/18 11/13/18 History potassium chloride ER 10 mEq 10 meq PO DAILY 02/25/18 11/13/18 History capsule,extended release simvastatin 40 mg tablet 40 mg PO BEDTIME 02/25/18 11/13/18 History tamsulosin 0.4 mg capsule 0.4 mg PO BEDTIME 02/25/18 11/13/18 History gabapentin 300 mg capsule 600 mg PO TID #180 cap 04/01/18 11/13/18 Rx Spiriva with HandiHaler 1 cap INHALATION DAILY 04/21/18 11/13/18 History hydroxychloroquine 200 mg PO BID 04/21/18 11/13/18 History sildenafil 50 mg PO BID 04/21/18 11/13/18 History docusate sodium 100 mg PO BID #60 cap 05/07/18 11/13/18 Rx Allergies Allergy/AdvReac Type Severity Reaction Status Date / Time No Known Drug Allergies Allergy Verified 11/13/18 09:58 Review of Systems Review of Systems All other systems reviewed with the patient and are negative unless otherwise stated. Exam Vital Signs (past 8 hours): - 11/13/18 09:53 11/13/18 10:02 11/13/18 10:16 Temperature 102.4 F H 102.4 F H Pulse Rate 109 H 88 Respiratory Rate 22 17 Blood Pressure 105/52 L Blood Pressure [Right Arm] Pulse Oximetry 92 95 11/13/18 11:12 11/13/18 11:18 11/13/18 11:19 Temperature 99.9 F H 99.9 F H Pulse Rate 79 Respiratory Rate 20 Blood Pressure Blood Pressure [Right Arm] 103/47 L Pulse Oximetry 89 L 97 11/13/18 12:00 Temperature Pulse Rate 79 Respiratory Rate 18 Blood Pressure Blood Pressure [Right Arm] 95/45 L Pulse Oximetry 99 Oxygen Delivery Method Room Air Oxygen Flow Rate 2 Narrative Exam Narrative: GENERAL APPEARANCE: Acutely ill, wrapped in hospital blankets, mild shivering. Coughing throughout. SKIN: Inspection of the skin reveals no rashes, ulcerations or petechiae. HEENT: The sclerae were anicteric and conjunctivae were pink and moist. Extraocular movements were intact and pupils were equal, round with normal accommodation. External inspection of the ears and nose showed no scars, lesions, or masses. Lips, teeth, and gums showed normal mucosa. The oral mucosa, hard and soft palate, tongue and posterior pharynx were unremarkable. NECK: Supple and symmetric. There was no thyroid enlargement, and no tenderness, or masses were felt. There is no JVD. CHEST: Normal AP diameter and normal contour without any kyphoscoliosis. LUNGS: Auscultation of the lungs coarse rhonchi over the right lower lobe, he has mild expiratory wheezing throughout, he appears short of breath with prolonged sentences. CARDIOVASCULAR: There was a regular rate and rhythm without any murmurs, gallops, rubs. Peripheral pulses were 2+ and symmetric. ABDOMEN: Soft and nontender with normal bowel sounds. No ascites was noted. MUSCULOSKELETAL: There was effusions noted, he has paraspinal lumbar tenderness. Muscle strength and tone were normal. EXTREMITIES: No cyanosis, clubbing or edema. NEUROLOGIC: Alert and oriented x 3. Normal affect. Strength is +5/5 in the Upper Extremities and Lower Extremities Bilaterally. Sensation to touch was normal. Objective ECG Impression: As interpreted by me NORMAL SINUS RHYTHM BORDERLINE LEFT AXIS DEVIATION [QRS AXIS < -20] NONSPECIFIC ST & T-WAVE ABNORMALITY POSSIBLE LEFT ATRIAL ENLARGEMENT Imaging Chest x-ray: My impression: No acute cardiopulmonary process. Appears grossly unchanged compared to prior chest x-ray. Labs Result Diagrams: 11/13/18 09:55 11/13/18 09:55 Labs: Laboratory Results - last 24 hr 11/13/18 11/13/18 11/13/18 09:55 09:55 09:55 WBC 13.4 H RBC 3.49 L Hgb 10.3 L Hct 31.7 L MCV 91.0 MCH 29.6 MCHC 32.6 RDW 16.7 H Plt Count 434 H Neut % (Auto) 76.8 H Lymph % (Auto) 6.1 L Garden % (Auto) 15.6 H Eos % (Auto) 1.1 L Baso % (Auto) 0.4 Neut # (Auto) 43131 H Lymph # (Auto) 800 L Garden # (Auto) 2100 H Eos # (Auto) 200 Baso # (Auto) 100 PT 13.0 H INR 1.1 APTT 30 Sodium 135 L Potassium 4.2 Chloride 101 Carbon Dioxide 24 BUN 13 Creatinine 0.90 Estimated GFR > 60.0 BUN/Creatinine Ratio 14.4 Glucose 148 H Lactate Calcium 9.1 Total Bilirubin 0.6 AST 24 ALT 22 Alkaline Phosphatase 67 Total Creatine Kinase 68 CK-MB (CK-2) TNP CK-MB (CK-2) Rel Index TNP Troponin I 0.031 B-Natriuretic Peptide Total Protein 6.8 Albumin 3.8 Globulin 3.0 Albumin/Globulin Ratio 1.3 Procalcitonin 11/13/18 11/13/18 11/13/18 09:55 09:55 09:55 WBC RBC Hgb Hct MCV MCH MCHC RDW Plt Count Neut % (Auto) Lymph % (Auto) Garden % (Auto) Eos % (Auto) Baso % (Auto) Neut # (Auto) Lymph # (Auto) Garden # (Auto) Eos # (Auto) Baso # (Auto) PT INR APTT Sodium Potassium Chloride Carbon Dioxide BUN Creatinine Estimated GFR BUN/Creatinine Ratio Glucose Lactate 1.7 Calcium Total Bilirubin AST ALT Alkaline Phosphatase Total Creatine Kinase CK-MB (CK-2) CK-MB (CK-2) Rel Index Troponin I B-Natriuretic Peptide 185 H Total Protein Albumin Globulin Albumin/Globulin Ratio Procalcitonin 0.05 Assessment & Plan Assessment & Plan narrative: Avelino Boateng is an 83-year-old male with past medical history of CHFpEF, COPD, hyperlipidemia, rheumatoid arthritis, aortic valve replacement with a bioprosthetic valve who presented to the emergency room after 3 days of progressive symptoms starting with sore throat then leading to productive cough and fevers chills. He is admitted to Medicine with sepsis secondary to likely pneumonia. Cough does not appear to be related to volume overload given BNP of 185 and unchanged CXR. 1. Severe Sepsis, present on admission - He was febrile to 102 in the ED with Leukocytosis to 13.4 and mildly hypotensive upon arrival to the floor at 96/50. He responded to a 2nd bolus of LR and his pressure is now in the 140s. Patient received fluids and IV antibiotics in the emergency room covering him for possible pneumonia. This may be viral in origin and procalcitonin is 0.05, however clinically he has sepsis with cough and most likely source is lung. Will continue ceftriaxone and azithromycin for now pending blood cultures. His CURB 65 score is 2. -obtain UA to evaluate for possible urinary source, however he denies symptoms. - continue ceftriaxone and azithromycin - hold continuous IVF infusion given history of congestive heart failure 2. Acute hypoxemic respiratory failure - I believe this is likely to be pneumonia. He is not profusely wheezing and I do not believe this to be a COPD exacerbation. Even less likely is a rheumatoid flare given self reported decrease in hydroxychloroquine. Patient currently desaturates to mid 80s on room air while speaking, he is stable on 2L nasal cannula. - obtain blood gas - O2 as needed to maintain O2 >88% given COPD history. 3. Elevated troponin - no EKG changes or chest pain at this time. Troponin elevation likely secondary to sepsis and respiratory failure as noted above. He does have a history of non-obstructive CAD found on [facility] in 2003 per outside cardiology notes. - continue checking troponin until downtrending. 4. COPD, chronic - as above do not believe his presentation is due to a COPD exacerbation. - continue home spiriva and albuterol prn for wheezing. 5. BPH, chronic- continue home proscar and flomax 6. CHFpEF, -last echo was February of 2017, showing an EF of 60-65%. He BNP is not markedly elevated and he has no lower extremity edema or JVD on exam. 7. HTN, chronic - - holding home losartan 50 mg due to mild hypotension on admission and sepsis, resume when necessary. 8. Rheumatoid arthritis - patient reports taking hydroxychloroquine once weekly. - consider Complement levels and further serologies if no improvement. - I will not continue hydroxychloroquine at this time given the patient endorses rarely taking the medication. 9. Glaucoma- continue home eye drops. 10. Low Back pain, chronic - continue home gabapentin 600 mg TID, and tylenol prn. 11. HLD, chronic - continue home simvastatin. 12. Insomnia - hold home zolpidem, consider melatonin if medication requested. 13. History of Aortic Bioprosthetic valve, chronic - no known afib per chart review. Quality VTE Deep Vein Thrombosis/Pulmonary Embolism Present on Admission: No
[2018-11-13] MEDS: LACTATED RINGERS 1,000 ML 1000 ML IV (14:18)
[2018-11-13] MEDS: GABAPENTIN 300 MG CAPSULE 600 MG PO ×2 (15:03→20:49)
[2018-11-13 15:39] LABS: HCO3 ABG 21 mmol/L (22-26); Oxygen Saturation ABG 94 % (95-100); PCO2 ABG 34.9 mmHg (35-45); PO2 ABG 70 mmHg (80-100); TCO2 ABG 22 mmol/L (21-31); pH ABG 7.39 (7.35-7.45)
[2018-11-13 15:40] LABS: Fractionated Inspired Oxygen 32
[2018-11-13 16:17] LABS: Troponin I 0.025 ng/mL (0.01-0.034)
[2018-11-13] MEDS: BENZOCAINE/MENTHOL 1 LOZ PKT 1 EACH PO ×3 (16:27→21:54)
[2018-11-13 17:13] LABS: Appearance Urine UA CLEAR; Bilirubin Urine UA NEGATIVE (NEGATIVE); Color Urine UA YELLOW; Glucose Urine UA NEGATIVE (Negative); Ketones Urine UA NEGATIVE (NEGATIVE); Leukocyte Esterase Urine UA TRACE (NEGATIVE); Nitrite Urine UA NEGATIVE (Negative); Occult Blood Urine UA NEGATIVE (Negative); Protein Urine UA NEGATIVE (Negative); Specific Gravity Urine UA 1.015 (1.000-1.035); Urobilinogen Urine UA 0.2 E.U./dL (0.2)
[2018-11-13 17:25] LABS: Bacteria Urine Few (2-10); Culture Indicated Urine Specimen Cultured; RBC Urine 0-1/HPF (0-5/HPF); Squamous Epithelial Cell Urine 0-1 /HPF (0-5/HPF); WBC Urine 1-5/HPF (0-5/HPF)
[2018-11-13] MEDS: SODIUM CHLORIDE 0.9% 1,000 ML 125 ML IV (19:14)
[2018-11-13] MEDS: ACETAMINOPHEN 325 MG TABLET 650 MG PO (19:18)
[2018-11-13] MEDS: HEPARIN 5,000 UNIT/ML VIAL 5000 UNIT SUBCUT (20:48)
[2018-11-13] MEDS: TAMSULOSIN 0.4 MG CAPSULE PO (20:49)
[2018-11-13] MEDS: ASPIRIN EC 81 MG TABLET PO (20:49)
[2018-11-13] MEDS: FINASTERIDE 5 MG TABLET PO (20:49)
[2018-11-13] MEDS: DOCUSATE 100 MG CAPSULE PO (20:49)
[2018-11-13] MEDS: SIMVASTATIN 40 MG TABLET PO (20:49)
[2018-11-13 23:12] LABS: Adenovirus Not Detected (Not Detect); Bordetella pertussis Not Detected (Not Detect); Chlamydophila pneumoniae Not Detected (Not Detect); Coronavirus 229E Not Detected (Not Detect); Coronavirus HKU1 Not Detected (Not Detect); Coronavirus NL 63 Not Detected (Not Detect); Coronavirus OC43 Not Detected (Not Detect); Human Metapneumovirus Not Detected (Not Detect); Human Rhinovirus/Enterovirus Not Detected (Not Detect); Influenza A Not Detected (Not Detect); Influenza B Not Detected (Not Detect); Mycoplasma pneumoniae Not Detected (Not Detect); Parainfluenza Virus 1 Not Detected (Not Detect); Parainfluenza Virus 2 Not Detected (Not Detect); Parainfluenza Virus 3 Detected (Not Detect); Parainfluenza Virus 4 Not Detected (Not Detect); Respiratory Syncytial Virus Not Detected (Not Detect)
--- NOTE | 2018-11-13 23:38 | PC.NURSE ---
Evening Shift Note- Patient alert and oriented and able to make needs known to staff. Patient hard of hearing. Patient impulsive and unsteady on feet. Recent falls reported. Bed alarm activated and frequent reminders given to call for assistance . Patient requires 1pa w/ walker but needs reminded. Lung sounds coarse with Rhonci and wheezes noted. Shortness of breath noted at rest and with ambulating. productive cough noted. .O2/NC/3L in place with continuous pulse ox in place to monitor. Safety measures in place. bed and chair alarm s at all times. frequent reminders to call for assistance. phone and call castro within reach. will continue to monitor.
[2018-11-14] VITALS (11 sets, daily range): BP systolic 111–124; BP diastolic 52–82; PULSE 83–100; RESP 14–22; TEMP 36.9–37.4; O2SAT 94–100
--- NOTE | 2018-11-14 00:46 | PC.NURSE ---
Shift note: Was prompted during care plan for risk intervention r/t admission assessment for suicidal intentions or self harm. Notified SPECIAL ORDER JEWELERElbert Arguello of assessment documented in chart, requested this RN verify with pt if he has suicidal ideations or homicidal ideations, to which pt emphatically responded no, not at all! Notified SPECIAL ORDER JEWELER that pt is not at risk, documenting here as a follow up regarding pt's low risk for harm to self or others. Coordinator aware of admission assessment and this shifts assessment of pt. Pt at this time is AxOx4, can make needs known, high fall risk d/t reported 3 falls just prior to admission, pt reports he doesn't remember falling but does remember his helping him up. Bed alarm active, call light in reach and demonstrated use.
[2018-11-14 06:03] LABS: Hematocrit 29.4 % (41-53); Hemoglobin 9.5 g/dL (13.5-17.5); Mean Corpuscular HGB Conc 32.3 % (30-36); Mean Corpuscular Hemoglobin 29.5 PG (26-34); Mean Corpuscular Volume 91.3 fL (80-100); Platelet Count 347 X10^3/uL (150-400); Red Blood Cell Count 3.22 X10^6/uL (4.5-5.9); Red Cell Distribution Width 16.5 % (11.6-14.8); White Blood Cell Count 21.4 X10^3/uL (4.5-11.0)
[2018-11-14 06:12] LABS: Add Manual Diff / Slide Review YES
[2018-11-14 06:14] LABS: BUN Creatinine Ratio 15.7 (6-22); Blood Urea Nitrogen 11 mg/dL (9-20); Calcium 8.6 mg/dL (8.4-10.2); Carbon Dioxide 28 mmol/L (22-32); Chloride 103 mmol/L (98-107); Estimated Glomerular Filt Rate > 60.0 mL/min (>60); Glucose 116 mg/dL (80-110); HEMOLYSIS < 15 (0-50); Magnesium 1.7 mg/dL (1.6-2.3); Potassium 4.2 mmol/L (3.4-5.1); Sodium 138 mmol/L (137-145)
[2018-11-14 06:37] LABS: Neutrophils Absolute Manual 18618 /uL (3000-5900); RBC Morphology Normal Morphology; Total Cells Counted 100
[2018-11-14] MEDS: ALBUTEROL/IPRATROPIUM 3 ML AMPUL INH ×3 (09:50→20:11)
[2018-11-14] MEDS: CEFTRIAXONE 2 GM/50 ML FROZ.PIGGY IV (10:23)
[2018-11-14] MEDS: guaiFENesin ER 600 MG TAB PO (10:27)
[2018-11-14] MEDS: SODIUM CHLORIDE 0.9% FLUSH 10 ML IV ×2 (10:28→20:46)
[2018-11-14] MEDS: HEPARIN 5,000 UNIT/ML VIAL 5000 UNIT SUBCUT ×2 (10:28→20:53)
[2018-11-14] MEDS: GABAPENTIN 300 MG CAPSULE 600 MG PO ×3 (10:28→20:45)
[2018-11-14] MEDS: DOCUSATE 100 MG CAPSULE PO ×2 (10:28→20:45)
[2018-11-14] MEDS: AZITHROMYCIN 500 MG in DEXTROSE 5% IN WATER 250 ML IV (13:12)
[2018-11-14] MEDS: TIOTROPIUM BROMIDE 18 MCG INHALER INH (13:13)
--- NOTE | 2018-11-14 14:42 | P.PN_ITS ---
Subjective Date Patient Seen: 11/14/18 Interval history: Avelino Boateng is an 83-year-old male with a past medical history significant for HFpEF, COPD, hyperlipidemia, rheumatoid arthritis on hydroxychloroquine (however he states he only takes this about once a week currently), aortic valve replacement with a bioprosthetic valve who presented to the ED for progressive worsening cough, fevers, chills, and sore throat. The patient is resting in bedside chair comfortably. He reports that he has feels significantly improved since he was admitted. He reports his sore throat has improved. He endorses mild rhinitis. He also reports minimally productive cough with chest tightness that has not changed. He denies headache, shortness of breath, chest pain, abdominal pain, nausea, vomiting, fever, chills, diarrhea or constipation. Of note, the patient takes sildenafil for reported difficulty with urination for which we discussed in detail and highly recommended he discontinue this medication as it high risk in his age group and physiologically does not help with urination and in fact may hinder urination. He is voiding and eliminating without difficulty. He is up ambulating with assistance. Exam Vital Signs (past 8 hours): - 11/14/18 07:48 11/14/18 09:00 11/14/18 09:50 Temperature 99.2 F Pulse Rate 100 H 88 Respiratory Rate 20 16 Blood Pressure 119/54 L Pulse Oximetry 96 95 97 Oxygen Delivery Method Nasal Cannula Oxygen Flow Rate 2 Narrative Exam Narrative: General: Elderly male sitting in bedside chair and in no acute distress, well- developed, well-nourished, appropriately interactive. HEENT: Normocephalic, atraumatic. External ears without defect. Pupils equal, round, and reactive to light. Anicteric sclerae, moist conjunctivae, and no lid lag. Oropharynx free of erythema and cobble stoning with moist mucosa. Neck: Supple with full range of motion. No jugular venous distension. No lymphadenopathy or thyromegaly. Cardiovascular: Regular rate and rhythm without murmurs, rubs, or gallops appreciated Pulmonary: Scattered rhonchi throughout all lung castro with occasional e xpiratory wheeze. No crackles. Normal respiratory effort with no use of accessory muscles. Abdomen: Soft bowel sounds present, nontender, nondistended. No hepatosplenomegaly or masses appreciated. Extremities: No clubbing, cyanosis, or edema. Skin: Normal temperature, turgor, and texture; no rash, ulcers, or subcutaneous nodules appreciated. Neurological: Cranial nerves grossly intact. Psychiatric: Normal mood and affect. Alert and oriented to person, place, and time. Objective Labs Result Diagrams: 11/15/18 06:05 11/15/18 06:00 Labs: Laboratory Results - last 24 hr 11/13/18 11/13/18 11/13/18 15:25 17:13 21:40 WBC RBC Hgb Hct MCV MCH MCHC RDW Plt Count Neut % (Auto) Lymph % (Auto) [place] % (Auto) Eos % (Auto) Baso % (Auto) Neut # (Auto) Lymph # (Auto) [place] # (Auto) Eos # (Auto) Baso # (Auto) Total Counted Seg Neutrophils % Band Neutrophils % Lymphocytes % (Manual) Atypical Lymphs % Monocytes % (Manual) Neutrophils # (Manual) RBC Morphology ABG pH 7.39 ABG pCO2 34.9 L ABG pO2 70 L ABG HCO3 21 L ABG Total CO2 22 ABG O2 Saturation 94 L ABG Base Excess -4.0 L FiO2 32 Sodium Potassium Chloride Carbon Dioxide BUN Creatinine Estimated GFR BUN/Creatinine Ratio Glucose Calcium Magnesium Troponin I Procalcitonin Urine Color Yellow Urine Appearance Clear Urine pH 5.0 Ur Specific [place] 1.015 Urine Protein Negative Urine Glucose (UA) Negative Urine Ketones Negative Urine Occult Blood Negative Urine Nitrate Negative Urine Bilirubin Negative Urine Urobilinogen 0.2 Ur Leukocyte Esterase Trace H Urine RBC 0-1/hpf Urine WBC 1-5/hpf Ur Squamous Epith Cells 0-1 /hpf Urine Bacteria Few (2-10) H Ur Culture Indicated? Specimen cultured Chlamy pneumoniae PCR Not detected Adenovirus (PCR) Not detected B.parapertussis DNA PCR Not detected Coronavirus OC43 (PCR) Not detected Coronavirus HKU1 (PCR) Not detected Coronavirus 229E (PCR) Not detected Coronavirus NL63 (PCR) Not detected Human Metapneumovir PCR Not detected Influenza Type A (PCR) Not detected Influenza Type B (PCR) Not detected M. pneumoniae (PCR) Not detected Parainfluenza 1 (PCR) Not detected Parainfluenza 2 (PCR) Not detected Parainfluenza 3 (PCR) Detected H Parainfluenza 4 (PCR) Not detected RSV (PCR) Not detected Entero/Rhino (PCR) Not detected 11/13/18 11/14/18 11/14/18 Unknown 05:25 05:25 WBC 21.4 H D RBC 3.22 L Hgb 9.5 L Hct 29.4 L MCV 91.3 MCH 29.5 MCHC 32.3 RDW 16.5 H Plt Count 347 Neut % (Auto) Resource Analyst Lymph % (Auto) Resource Analyst [place] % (Auto) Resource Analyst Eos % (Auto) Resource Analyst Baso % (Auto) Resource Analyst Neut # (Auto) Resource Analyst Lymph # (Auto) Resource Analyst [place] # (Auto) Resource Analyst Eos # (Auto) Resource Analyst Baso # (Auto) Resource Analyst Total Counted 100 Seg Neutrophils % 75.0 H Band Neutrophils % 12.0 H Lymphocytes % (Manual) 7.0 L Atypical Lymphs % 2.0 H Monocytes % (Manual) 4.0 Neutrophils # (Manual) 26283 H RBC Morphology Normal morphology ABG pH ABG pCO2 ABG pO2 ABG HCO3 ABG Total CO2 ABG O2 Saturation ABG Base Excess FiO2 Sodium 138 Potassium 4.2 Chloride 103 Carbon Dioxide 28 BUN 11 Creatinine 0.70 Estimated GFR > 60.0 BUN/Creatinine Ratio 15.7 Glucose 116 H Calcium 8.6 Magnesium 1.7 Troponin I 0.025 Procalcitonin Urine Color Urine Appearance Urine pH Ur Specific [place] Urine Protein Urine Glucose (UA) Urine Ketones Urine Occult Blood Urine Nitrate Urine Bilirubin Urine Urobilinogen Ur Leukocyte Esterase Urine RBC Urine WBC Ur Squamous Epith Cells Urine Bacteria Ur Culture Indicated? Chlamy pneumoniae PCR Adenovirus (PCR) B.parapertussis DNA PCR Coronavirus OC43 (PCR) Coronavirus HKU1 (PCR) Coronavirus 229E (PCR) Coronavirus NL63 (PCR) Human Metapneumovir PCR Influenza Type A (PCR) Influenza Type B (PCR) M. pneumoniae (PCR) Parainfluenza 1 (PCR) Parainfluenza 2 (PCR) Parainfluenza 3 (PCR) Parainfluenza 4 (PCR) RSV (PCR) Entero/Rhino (PCR) 11/14/18 05:25 WBC RBC Hgb Hct MCV MCH MCHC RDW Plt Count Neut % (Auto) Lymph % (Auto) [place] % (Auto) Eos % (Auto) Baso % (Auto) Neut # (Auto) Lymph # (Auto) [place] # (Auto) Eos # (Auto) Baso # (Auto) Total Counted Seg Neutrophils % Band Neutrophils % Lymphocytes % (Manual) Atypical Lymphs % Monocytes % (Manual) Neutrophils # (Manual) RBC Morphology ABG pH ABG pCO2 ABG pO2 ABG HCO3 ABG Total CO2 ABG O2 Saturation ABG Base Excess FiO2 Sodium Potassium Chloride Carbon Dioxide BUN Creatinine Estimated GFR BUN/Creatinine Ratio Glucose Calcium Magnesium Troponin I Procalcitonin 2.30 H Urine Color Urine Appearance Urine pH Ur Specific [place] Urine Protein Urine Glucose (UA) Urine Ketones Urine Occult Blood Urine Nitrate Urine Bilirubin Urine Urobilinogen Ur Leukocyte Esterase Urine RBC Urine WBC Ur Squamous Epith Cells Urine Bacteria Ur Culture Indicated? Chlamy pneumoniae PCR Adenovirus (PCR) B.parapertussis DNA PCR Coronavirus OC43 (PCR) Coronavirus HKU1 (PCR) Coronavirus 229E (PCR) Coronavirus NL63 (PCR) Human Metapneumovir PCR Influenza Type A (PCR) Influenza Type B (PCR) M. pneumoniae (PCR) Parainfluenza 1 (PCR) Parainfluenza 2 (PCR) Parainfluenza 3 (PCR) Parainfluenza 4 (PCR) RSV (PCR) Entero/Rhino (PCR) Assessment & Plan Assessment & Plan narrative: Avelino Boateng is an 83-year-old male with a past medical history significant for HFpEF, COPD, hyperlipidemia, rheumatoid arthritis on hydroxychloroquine (however he states he only takes this about once a week currently), aortic valve replacement with a bioprosthetic valve who presented to the ED for progressive worsening cough, fevers, chills, and sore throat. 1. Acute sepsis, present on admission. Resolved. -Sepsis criteria met including: Febrile (T 102? F), leukocytosis (WBC 13.4) with end organ failure of hypotension (BP 96/50) which was fluid responsive and ilir pected source pneumonia. -Early goal-directed therapy met including: IV fluid resuscitation and broad- spectrum antibiotics. 2. Acute viral with superimposed bacterial community-acquired pneumonia, present on admission. Active. -Patient presented with progressive worsening sore throat, productive cough, fever and chills. -Chest x-ray obtained did not demonstrate pneumonia initially likely due to dehydration. -Initial WBC 13.4 and likely peaking at 21.4. Initial procalcitonin < 0.05 and likely peaking at 2.30. Continue trend daily. -Received 2 L NS boluses in the ED. Continued gentle IV fluid hydration due to history of CHF until adequately hydrated then discontinued. -Ordered pneumonia workup including: Respiratory viral PCR positive for parainfluenza. Sputum culture had heavy growth of mixed residential alfred. Blood culture x2 have no growth to date. -Received ceftriaxone 1 g IV x1 and azithromycin 500 mg IV x1 in the ED. Continue ceftriaxone 2 g IV daily and azithromycin 500 mg IV x2 additional doses for total of 3. -Continue supportive treatment including: Mucinex 1200 mg twice daily, nasal saline spray 3 times daily, Tessalon Perles 100 mg 3 times daily as needed for cough, benzocaine lozenges as needed for sore throat duo nebs, and Acapella. 3. Acute hypoxemic respiratory failure, present on admission. Resolving. -Secondary to viral and bacterial pneumonia as above. -Patient initially desaturated mid 80s on room air while speaking and was placed on supplemental oxygen 2 L via nasal cannula. Oxygen saturation goal 88-92%. Continue to titrate off as tolerated. -Continue respiratory therapy for evaluation and treatment. Continue duo nebs every 4 hours while awake and albuterol nebs every 2 hours as needed for shortness of breath. Continue Acapella daily after each nebulizer treatment. 4. COPD, chronic, present on admission. Stable. 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 -Continue home spiriva and nebulizers as above for wheezing or shortness of breath. 5. BPH, chronic, present on admission. Stable. -Continue finasteride 5 mg daily at bedtime and tamsulosin 0.4 mg daily at bedtime. -Discontinued and highly recommended no longer taking sildenafil for difficulty with urination as this is contraindicated and can cause urinary retention and is a high risk medication in the elderly for IA or CVA. 6. HFpEF, chronic, present on admission. Stable. -Last echocardiogram 02/2017 demonstrated an EF of 60-65%. His BNP is not markedly elevated and he has no lower extremity edema or JVD on exam. -Held home furosemide 40 mg daily and losartan 50 mg daily due to mild hypotension related to sepsis on admission. Will consider restarting tomorrow. 7. Hypertension, chronic, present on admission. Stable. -Held home losartan 50 mg daily due to mild hypotension related to sepsis on admission. Will consider restarting tomorrow. 8. Rheumatoid arthritis, chronic, present on admission. Stable. -Held hydroxychloroquine at this time given the patient endorses rarely taking the medication. Consider complement levels and further serologies if no improvement outpatient. 9. Glaucoma, chronic, present on admission. Stable. -Continue home latanoprost and timolol eyedrops. 10. Low back pain, chronic, present on admission. Stable. -Continue home gabapentin 600 mg 3 times daily and tylenol as needed for pain. 11. Hyperlipidemia, chronic, present on admission. Stable. -Continue simvastatin 40 mg daily at bedtime. 12. Insomnia, chronic, present on admission. Stable. -Held home zolpidem and will consider melatonin if medication requested. 13. History of bioprosthetic aortic valve, chronic, present on admission. Stable. -No known atrial fibrillation per chart review. Disposition: Patient likely to discharge home in the next 1-2 days depending on clinical improvement with treatment of viral and bacterial pneumonia. Quality VTE Deep Vein Thrombosis/Pulmonary Embolism Present on Admission: No
--- NOTE | 2018-11-14 15:55 | PC.NURSE ---
Day shift pt called and asked her to bring in stuff. one of the things he asked for was his viagra. I heard this from nurses station and informed pt 2x to not take any medications not from me even if they were his meds from home. arrived and i did not intercept her. Pt took 1 viagra. notified. remainder of Meds sent home with .
[2018-11-14] MEDS: SODIUM CHLORIDE NASAL SPRAY 1 SPRAY NASAL (17:03)
--- NOTE | 2018-11-14 18:08 | PC.NURSE ---
Addendum entered by [place] R.N. 11/14/18 21:50: Pt had relatively uneventful evening. Denies any discomfort. SpO2 remains 95-97% RA. Lungs remains course. Call light w/in reach, bed alarm on for pt safety Continue w/plan of care. Original Note: Pt sitting in chair, Denies discomfort. Lungs w/course wheezes thoughout SpO2 97% on 2L O2 Has productive cough HL intact/patent. Call light w/in reach, chair alarm on for pt safety.
--- NOTE | 2018-11-14 19:03 | PT.IIE ---
Current Diagnoses Sepsis, unspecified organism (11/13/18) Surgical History (Last Reviewed 11/13/18 @ 10:14 by Monica Martinez DO) H/O cardiac catheterization (Acute ~2003) History of right cataract extraction (Acute) Hx of tonsillectomy (Acute) S/P aortic valve replacement with bioprosthetic valve (Acute ~2003) Medical History (Last Reviewed 11/13/18 @ 10:14 by Monica Martinez DO) Acute on chronic diastolic congestive heart failure (Acute) Amputation of finger, left (Acute) Arthritis (Acute) Back pain (Acute) Bleeds easily (Acute) COPD (chronic obstructive pulmonary disease) (Acute) Carotid artery disease (Acute) Cervical arthritis (Acute) Chronic diastolic congestive heart failure (Acute) Dyslipidemia (Acute) Easy bruisability (Acute) Enlarged prostate (Acute) Graves' eye disease (Acute) Hearing impaired (Acute) Left shoulder pain (Acute) Mitral valve regurgitation (Acute) 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 (Rec: 11/14/18 19:03 [facility] [id number]) Medical Review Prior Functional Status Medical History Reviewed Yes Mobility and Gait indep without AD in house and indep with occasional cane use outside Activities of Daily Living and IADL's indep with dressing, bathing, driving, cooking, cleaning Social History Household Members spouse Living Arrangements House Number of Floors (Floors) Two Floors Number of Stairs To Enter/Railing? no steps to enter Home Environment High Toilet Walk in Shower Home Equipment Straight Cane Grab Bars In Shower Employment Status Retired M2 PT-IP Current Condition Start: 11/14/18 18:42 Freq: NEEDED Status: Active Protocol: Document 11/14/18 18:42 [facility] (Rec: 11/14/18 19:03 [facility] [id number]) Physical Therapy Current Condition Current Condition Evaluation Date 11/14/18 Treatment Diagnosis weakness, difficulty walking, possible PNA Weight Bearing Status Weight Bearing Status Full Weight Bearing M3 PT-IP Subjective Start: 11/14/18 18:42 Freq: NEEDED Status: Active Protocol: Document 11/14/18 18:42 [facility] (Rec: 11/14/18 19:03 [facility] [id number]) Subjective Physical Therapy Visit Type Type Initial Evaluation Visit Start Time 16:15 Visit Stop Time 16:40 Total Visit Minutes 25 Number of ARMATURE TESTER Visits 0 M4 PT-IP Mobility and Gait Start: 11/14/18 18:42 Freq: NEEDED Status: Active Protocol: Document 11/14/18 18:42 [facility] (Rec: 11/14/18 19:03 [facility] [id number]) PT-Bed Mobility Assessment Rolling Type of Rolling Log Rolling Level of Assist Independent Supine to Sit Supine to Sit Independent Sit to Supine Sit to Supine Independent Scooting Scooting to Edge of Bed Independent Scooting Up and Down in Bed Independent PT-Transfer Assessment Sit to and From Stand Sit to and from Stand Standby Assistance Equipment Transfer Assistive Device Gait Belt Comments Mobility Comments Pt stood from chair and bed SBA Gait Assessment Gait Gait Assistance Required: Standby Assistance Distance (Feet) 40 Assistive Devices Assistive Device Gait Belt Gait Deviations General Gait Pattern Decreased Stride Length Flexed Trunk Lateral Trunk Lean Factors Limiting Gait Function Factors Limiting Gait Function Decreased Strength Poor Balance Comments Gait Comments Pt able to amb around room SBA but does demonstrate unsteadiness PT-Balance Assessment Sitting Balance and Reactions Static Sitting Balance Ability Normal Dynamic Sitting Balance Ability Normal Standing Balance and Reactions Static Standing Balance Ability Fair Dynamic Standing Balance Ability Fair Balance Tests Venegas Balance Test Score 44/56 Query Text:Score M5 PT-IP Objective Assessments Start: 11/14/18 18:42 Freq: NEEDED Status: Active Protocol: Document 11/14/18 18:42 [facility] (Rec: 11/14/18 19:03 [facility] [id number]) Orientation Orientation/Cognition Level of Alertness Alert Strength Lower Extremity Strength Assessment Bilaterally Impaired M6 PT-IP Treatment Start: 11/14/18 18:42 Freq: NEEDED Status: Active Protocol: Document 11/14/18 18:42 [facility] (Rec: 11/14/18 19:03 [facility] [id number]) Physical Therapy Treatment Education Education Provided Safety M7 PT-IP Assessment and Plan Start: 11/14/18 18:42 Freq: NEEDED Status: Active Protocol: Document 11/14/18 18:42 [facility] (Rec: 11/14/18 19:03 [facility] [id number]) PT Summary Assessment and Plan Potential Rehabilitation Potential Good Status of Condition at Evaluation Evolving Summary Impairments Strength Balance Gait Activity Tolerance Goals Gait Goal Independent Gait Distance 150ft Other Goals up/down 20stairs SBA Frequency of Treatment Frequency Of Treatment Once a Day Treatment Plan Physical Therapy Treatment Plan Gait Training Balance Retraining Discharge Planning Neuromuscular Re-ed Other Recommendations and Next Treatment balance training & stairs; edu Focus to manage O2 cord if pt goes home with O2 Recommendations To Nursing Amount of Assist Needed Standby Assistance Discharge Recommendations PT Discharge Recommendations Home with Assistance Outpatient PT
[2018-11-14] MEDS: TAMSULOSIN 0.4 MG CAPSULE PO (20:44)
[2018-11-14] MEDS: SIMVASTATIN 40 MG TABLET PO (20:44)
[2018-11-14] MEDS: ASPIRIN EC 81 MG TABLET PO (20:44)
[2018-11-14] MEDS: LATANOPROST 0.005% OPHTH 2.5 ML 1 DROPS EYE-RIGHT (20:46)
[2018-11-14] MEDS: TIMOLOL 0.5% OPHTH 1 DROPS EYE-BOTH (20:47)
[2018-11-14] MEDS: FINASTERIDE 5 MG TABLET PO (20:54)
[2018-11-14] MEDS: guaiFENesin ER 600 MG TAB 1200 MG PO (20:56)
[2018-11-15 03:27] VITALS: BP 130/61; PULSE 96; RESP 18; TEMP 37.3; O2SAT 92
[2018-11-15] MEDS: BENZOCAINE/MENTHOL 1 LOZ PKT 1 EACH PO (04:23)
[2018-11-15 06:37] LABS: Add Manual Diff / Slide Review NO; Basophils Absolute Auto 0 /uL (0-100); Basophils Percent Auto 0.2 % (0-2); Eosinophils Absolute Auto 100 /uL (0-450); Eosinophils Percent Auto 0.7 % (2-4); Hematocrit 26.7 % (41-53); Hemoglobin 8.8 g/dL (13.5-17.5); Lymphocytes Absolute Auto 1300 /uL (1100-4500); Lymphocytes Percent Auto 9.5 % (25-40); Mean Corpuscular HGB Conc 32.9 % (30-36); Mean Corpuscular Hemoglobin 29.5 PG (26-34); Mean Corpuscular Volume 89.7 fL (80-100); Monocytes Absolute Auto 1500 /uL (0-900); Monocytes Percent Auto 11.1 % (3-14); Neutrophils Absolute Auto 10800 /uL (1500-7000); Neutrophils Percent Auto 78.5 % (50-75); Platelet Count 330 X10^3/uL (150-400); Red Blood Cell Count 2.98 X10^6/uL (4.5-5.9); Red Cell Distribution Width 16.7 % (11.6-14.8); White Blood Cell Count 13.8 X10^3/uL (4.5-11.0)
[2018-11-15 06:45] LABS: Alanine Aminotransferase 20 IU/L (21-72); Albumin 3.3 g/dL (3.5-5.0); Albumin Globulin Ratio 1.1 (1.0-2.8); Alkaline Phosphatase 66 U/L (38-126); Aspartate Aminotransferase 24 IU/L (17-59); BUN Creatinine Ratio 15.7 (6-22); Bilirubin Total 0.5 mg/dL (0.2-1.3); Blood Urea Nitrogen 11 mg/dL (9-20); Calcium 8.9 mg/dL (8.4-10.2); Carbon Dioxide 27 mmol/L (22-32); Chloride 102 mmol/L (98-107); Estimated Glomerular Filt Rate > 60.0 mL/min (>60); Globulin 3.1 g/dL (1.7-4.1); Glucose 118 mg/dL (80-110); HEMOLYSIS < 15 (0-50); Magnesium 1.8 mg/dL (1.6-2.3); Potassium 4.1 mmol/L (3.4-5.1); Sodium 135 mmol/L (137-145); Total Protein 6.4 g/dL (6.3-8.2)
[2018-11-15] MEDS: ALBUTEROL/IPRATROPIUM 3 ML AMPUL INH ×2 (07:59→11:32)
[2018-11-15] MEDS: TIOTROPIUM BROMIDE 18 MCG INHALER INH (07:59)
[2018-11-15 08:00] VITALS: BP 128/52; PULSE 78; RESP 18; TEMP 36.8; O2SAT 96
[2018-11-15 08:19] VITALS: PULSE 81; RESP 16; O2SAT 94
[2018-11-15 08:39] LABS: Procalcitonin 1.67 ng/mL (<0.5)
[2018-11-15] MEDS: SODIUM CHLORIDE NASAL SPRAY 1 SPRAY NASAL (10:07)
[2018-11-15] MEDS: CEFTRIAXONE 2 GM/50 ML FROZ.PIGGY IV (10:11)
[2018-11-15] MEDS: DOCUSATE 100 MG CAPSULE PO (10:11)
[2018-11-15] MEDS: HEPARIN 5,000 UNIT/ML VIAL 5000 UNIT SUBCUT (10:12)
[2018-11-15] MEDS: GABAPENTIN 300 MG CAPSULE 600 MG PO (10:12)
[2018-11-15] MEDS: SODIUM CHLORIDE 0.9% FLUSH 10 ML IV (10:12)
[2018-11-15] MEDS: TIMOLOL 0.5% OPHTH 1 DROPS EYE-BOTH (10:12)
[2018-11-15] MEDS: guaiFENesin ER 600 MG TAB 1200 MG PO (10:20)
[2018-11-15 11:05] VITALS: O2SAT 98
--- NOTE | 2018-11-15 11:26 | PM.DS.1 ---
History of Present Illness Date Patient Seen: 11/13/18 Chief complaint: Bad cold/Worsening Fever Narrative: Written by Dr. Vidal: Avelino Boateng is an 83-year-old male with past medical history of CHFpEF, COPD, hyperlipidemia, rheumatoid arthritis on hydroxychloroquine (however he states he only takes this about once a week currently), aortic valve replacement with a bioprosthetic valve who presented to the emergency room after 3 days of progressive symptoms starting with sore throat then leading to productive cough and fevers/chills. Three days ago the patient noticed sore throat and mild cough that progressed to productive cough with green sputum starting yesterday, and then this morning he was febrile at home to 102.5 so this is when he came to the emergency room. He states his shortness of breath is at baseline, however his says that he breathes a little bit harder currently even at rest. His baseline exercise tolerance is around 1 block. He states he has a chronic cough from COPD but nothing like this, and chronic back pain. He denies headaches, runny nose, sinus pain, chest pain, abdominal pain, nausea, vomiting, lower extremity edema, or rashes. He denies recent travel or sick contacts, but did go crabbing yesterday. Discharge Providers Date of admission: 11/13/18 11:56 Discharge Date: 11/15/18 Primary care physician: Giacomo Aguirre MD Consults: 11/13/18 13:51 Consult to Dietitian, Adult Routine Comment: Reason For Exam: has lost some weight over time Consult to Pastoral Services Routine Comment: Usually sees his own in [place]. 11/13/18 14:12 Consult to Respiratory Therapy Evaluate & Treat Comment: Physician Instructions: Evaluate and treat 11/14/18 17:28 Consult to Physical Therapy Evaluate & Treat Comment: Physician Instructions: Evaluate and Treat Discharge provider: Courtney Howard DO Summary Discharge Diagnosis: 1. Acute sepsis, present on admission. Resolved. 2. Acute viral with superimposed bacterial community-acquired pneumonia, present on admission. Resolving. 3. Acute hypoxemic respiratory failure, present on admission. Resolved. 4. COPD, chronic, present on admission. Stable. 5. BPH, chronic, present on admission. Stable. 6. HFpEF, chronic, present on admission. Stable. 7. Hypertension, chronic, present on admission. Stable. 8. Rheumatoid arthritis, chronic, present on admission. Stable. 9. Glaucoma, chronic, present on admission. Stable. 10. Low back pain, chronic, present on admission. Stable. 11. Hyperlipidemia, chronic, present on admission. Stable. 12. Insomnia, chronic, present on admission. Stable. 13. History of bioprosthetic aortic valve, chronic, present on admission. Stable. 14. Normal troponin level. Hospital Course: Avelino Boateng is an 83-year-old male with a past medical history significant for HFpEF, COPD, hyperlipidemia, rheumatoid arthritis on hydroxychloroquine (however he states he only takes this about once a week currently), aortic valve replacement with a bioprosthetic valve who presented to the ED for progressive worsening cough, fevers, chills, and sore throat. 1. Acute sepsis, present on admission. Resolved. -Sepsis criteria met including: Febrile (T 102? F), leukocytosis (WBC 13.4) with end organ failure of hypotension (BP 96/50) which was fluid responsive and suspected source pneumonia. -Early goal-directed therapy met including: IV fluid resuscitation and broad-spectrum antibiotics. 2. Acute viral with superimposed bacterial community-acquired pneumonia, present on admission. Resolving. -Patient presented with progressive worsening sore throat, productive cough, fever and chills. -Chest x-ray obtained did not demonstrate pneumonia initially which likely flourished once rehydrated with IV fluids. Repeat chest x-ray demonstrated right middle lobe pneumonia. -Initial WBC 13.4, peaked at 21.4, now 13.8. Initial procalcitonin < 0.05, peaked at 2.30, now 1.67. Continued to trend daily. -Received 2 L NS boluses in the ED. Continued gentle IV fluid hydration due to history of CHF until adequately hydrated then discontinued. -Ordered pneumonia workup including: Respiratory viral PCR positive for parainfluenza. Sputum culture had heavy growth of mixed residential alfred. Blood culture x2 have no growth to date. -Received ceftriaxone 1 g IV x1 and azithromycin 500 mg IV x1 in the ED. Continued ceftriaxone 2 g IV daily and azithromycin 500 mg IV x 2 additional doses for total of 3 doses. -Continued supportive treatment including: Mucinex 1200 mg twice daily, nasal saline spray 3 times daily, Tessalon Perles 100 mg 3 times daily as needed for cough, benzocaine lozenges as needed for sore throat, duo nebs, and Acapella. Discharged with prescription of combivent to use at least twice daily and up to six times daily while acute illness is resolving. 3. Acute hypoxemic respiratory failure, present on admission. Resolved. -Secondary to viral and bacterial pneumonia as above. -Patient initially desaturated mid 80s on room air while speaking and was placed on supplemental oxygen 2 L via nasal cannula. Oxygen saturation goal 88-92%. Titrate off and satting mid 90's on room air. -Continued respiratory therapy evaluation and treatment. Continued DuoNebs every 4 hours while awake and albuterol nebs every 2 hours as needed for shortness of breath. Continued Acapella daily after each nebulizer treatment. 4. COPD, chronic, present on admission. Stable. 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 -Continued home spiriva and nebulizers as above for wheezing or shortness of breath. Discharged with prescription of combivent to use at least twice daily indefintiely for COPD exacerbation prevention and up to six times daily while acute illness is resolving. 5. BPH, chronic, present on admission. Stable. -Continued finasteride 5 mg daily at bedtime and tamsulosin 0.4 mg daily at bedtime. -Discontinued and highly recommended no longer taking sildenafil for difficulty with urination as this is contraindicated, can cause urinary retention, and is a high risk medication in the elderly for VT or CVA. 6. HFpEF, chronic, present on admission. Stable. -Last echocardiogram 02/2017 demonstrated an EF of 60-65%. His BNP is not markedly elevated and he has no lower extremity edema or JVD on exam. -Restarted on day of discharge home furosemide 40 mg daily (received 20 mg IV x 1) and losartan 50 mg daily at bedtime. Both were held initially due to mild hypotension related to sepsis on admission. 7. Hypertension, chronic, present on admission. Stable. -Restarted on day of discharge home furosemide 40 mg daily (received 20 mg IV x 1) and losartan 50 mg daily at bedtime. Both were held initially due to mild hypotension related to sepsis on admission. 8. Rheumatoid arthritis, chronic, present on admission. Stable. -Held hydroxychloroquine during hospitalization due to acute illness and the patient endorses rarely taking the medication. 9. Glaucoma, chronic, present on admission. Stable. -Continued home latanoprost and timolol eyedrops. 10. Low back pain, chronic, present on admission. Stable. -Continued home gabapentin 600 mg 3 times daily and acetaminophen as needed for pain. 11. Hyperlipidemia, chronic, present on admission. Stable. -Continued simvastatin 40 mg daily at bedtime. 12. Insomnia, chronic, present on admission. Stable. -Held home zolpidem due to sepsis and acute illness. Restarted at time of discharge. 13. History of bioprosthetic aortic valve, chronic, present on admission. Stable. -No known atrial fibrillation per chart review. 14. Normal troponin level. -Initially documented as elevated troponin but review of the chart and troponin values, both were within normal limits at 0.031 and 0.025. -EKG without ischemic changes. -Patient with history of CAD but did not have active chest pain or pressure during hospitalization. Status at Discharge Functional status at discharge: independent ambulation Overall status at discharge: patient is progressing back to baseline Exam Vital Signs (past 8 hours): - 11/15/18 03:27 11/15/18 08:00 11/15/18 08:19 Temperature 99.1 F 98.3 F Pulse Rate 96 H 78 81 Respiratory Rate 18 18 16 Blood Pressure 130/61 128/52 L Pulse Oximetry 92 96 94 Oxygen Delivery Method Room Air Oxygen Flow Rate 2 Narrative Exam Narrative: General: Elderly male sitting in bedside chair and in no acute distress, well-developed, well-nourished, appropriately interactive. HEENT: Normocephalic, atraumatic. External ears without defect. Pupils equal, round, and reactive to light. Anicteric sclerae, moist conjunctivae, and no lid lag. Oropharynx free of erythema and cobble stoning with moist mucosa. Neck: Supple with full range of motion. No jugular venous distension. No lymphadenopathy or thyromegaly. Cardiovascular: Regular rate and rhythm without murmurs, rubs, or gallops appreciated Pulmonary: Scattered rhonchi throughout but improved with occasional expiratory wheeze. No crackles. Normal respiratory effort with no use of accessory muscles. Abdomen: Soft, bowel sounds present, nontender, nondistended. No hepatosplenomegaly or masses appreciated. Extremities: No clubbing, cyanosis, or edema. Skin: Normal temperature, turgor, and texture; no rash, ulcers, or subcutaneous nodules appreciated. Neurological: Cranial nerves grossly intact. Psychiatric: Normal mood and affect. Alert and oriented to person, place, and time. Objective Labs Result Diagrams: 11/15/18 06:05 11/15/18 06:00 Labs: Laboratory Results - last 24 hr 11/13/18 11/15/18 11/15/18 15:38 06:00 06:05 WBC 13.8 H RBC 2.98 L Hgb 8.8 L Hct 26.7 L MCV 89.7 MCH 29.5 MCHC 32.9 RDW 16.7 H Plt Count 330 Neut % (Auto) 78.5 H Lymph % (Auto) 9.5 L Story % (Auto) 11.1 Eos % (Auto) 0.7 L Baso % (Auto) 0.2 Neut # (Auto) 60464 H Lymph # (Auto) 1300 Story # (Auto) 1500 H Eos # (Auto) 100 Baso # (Auto) 0 Sodium 135 L Potassium 4.1 Chloride 102 Carbon Dioxide 27 BUN 11 Creatinine 0.70 Estimated GFR > 60.0 BUN/Creatinine Ratio 15.7 Glucose 118 H Calcium 8.9 Magnesium 1.8 Total Bilirubin 0.5 AST 24 ALT 20 L Alkaline Phosphatase 66 Troponin I 0.025 Total Protein 6.4 Albumin 3.3 L Globulin 3.1 Albumin/Globulin Ratio 1.1 Procalcitonin 11/15/18 06:05 WBC RBC Hgb Hct MCV MCH MCHC RDW Plt Count Neut % (Auto) Lymph % (Auto) Story % (Auto) Eos % (Auto) Baso % (Auto) Neut # (Auto) Lymph # (Auto) Story # (Auto) Eos # (Auto) Baso # (Auto) Sodium Potassium Chloride Carbon Dioxide BUN Creatinine Estimated GFR BUN/Creatinine Ratio Glucose Calcium Magnesium Total Bilirubin AST ALT Alkaline Phosphatase Troponin I Total Protein Albumin Globulin Albumin/Globulin Ratio Procalcitonin 1.67 H Discharge Plan Discharge Plan Patient Disposition: Home Discharge comment: You are being discharged home. Please follow-up with your primary care provider, Dr. Aguirre, at your scheduled appointment regarding your hospitalization. You have been prescribed Augmentin twice daily for 4 additional days to complete a 7 day antibiotic course. You have parainfluenza virus and should use good hand hygiene by covering cough and washing hands frequently. Please try to get plenty of rest. You were also provided with Mucinex 1200 mg twice daily as needed to thin mucus and Tessalon Perles 100 mg 3 times daily as needed for coughing. You would benefit from nasal saline or Neti-pot which will help cut your cold time in half. You may have a cough for the next 4-8 weeks. Recommend repeat chest x-ray in 6-8 weeks to assure your pneumonia has completely resolved. Do not recommend sildenafil for difficulty with urination as this is contraindicated and high-risk medication for heart attack and stroke in your age group. Discharge Med Rec/Prescriptions Prescriptions: New benzonatate 100 mg Capsule 100 mg PO TID PRN (Reason: Cough) Qty: 30 RF: 0 guaifenesin [Mucus Relief ER] 600 mg Tablet Extended Release 12hr 1,200 mg PO BID Qty: 10 RF: 0 amoxicillin-pot clavulanate [Augmentin] 875-125 mg tablet 1 tab PO BID Qty: 8 RF: 0 Combivent Respimat 20-100 mcg/actuation mist 1 puff INHALATION BID-QID Qty: 4 RF: 0 Continued zolpidem 5 MG tablet 1 - 2 mg PO BEDTIME PRN (Reason: Sleep) Qty: 0 RF: 0 latanoprost [Xalatan] 0.005 % drops 1 drp EYE-RIGHT BEDTIME Qty: 0 RF: 0 timolol maleate 0.5 % drops 1 drp EYE-BOTH BID Qty: 0 RF: 0 furosemide 40 MG tablet 40 mg PO QAM Qty: 0 RF: 0 gabapentin 300 mg capsule 600 mg PO TID Qty: 180 RF: 2 hydroxychloroquine 200 mg Tablet 200 mg PO BID RF: 0 Spiriva with HandiHaler 18 mcg Capsule, W/Inhalation Device 1 cap INHALATION DAILY RF: 0 docusate sodium 100 mg Capsule 100 mg PO BID Qty: 60 RF: 0 potassium chloride 10 mEq capsule, extended release 10 meq PO DAILY RF: 0 losartan 50 mg tablet 50 mg PO BEDTIME RF: 0 simvastatin 40 mg tablet 40 mg PO BEDTIME RF: 0 aspirin [Aspir-81] 81 mg tablet,delayed release (DR/EC) 81 mg PO BEDTIME RF: 0 finasteride 5 mg tablet 5 mg PO BEDTIME RF: 0 tamsulosin 0.4 mg capsule 0.4 mg PO BEDTIME RF: 0 Discontinued sildenafil 100 mg Tablet 50 mg PO BID RF: 0 Follow up/Referrals: Giacomo Aguirre MD [Primary Care Provider] - 11/19/18 11:30 am (follow up appointment with the Maile Tyson this wednesdayNovember 19 @ 11:30 am) Provider Discharge Instructions Diet: Low-fat, Low-sodium and Low-cholesterol Activity: Activity as tolerated Visit Report/Discharge Packet Instructions: DI for Heart Failure, DI for Pneumonia -- Adult, DI for Viral Upper Respiratory Infection -- Adult, DI for Viral Syndrome Discharge Data Primary Care Provider: Giacomo Aguirre Attending Provider: Niels Vidal Admit Date/Time: 11/13/18 11:56 Discharges patient from system. Discharge Date/Time: 11/15/18 14:40 Quality VTE Deep Vein Thrombosis/Pulmonary Embolism Present on Admission: No
[2018-11-15 11:32] VITALS: PULSE 87; RESP 18; O2SAT 96; BMI 25.1
[2018-11-15] MEDS: FUROSEMIDE 20 MG/2 ML VIAL IV (11:39)
[2018-11-15] MEDS: AZITHROMYCIN 500 MG in DEXTROSE 5% IN WATER 250 ML IV (11:39)
--- NOTE | 2018-11-15 11:43 | PT.IPTN ---
Current Diagnoses Sepsis, unspecified organism (11/13/18) Physical Therapy Treatment Note M2 PT-IP Current Condition Start: 11/14/18 18:42 Freq: NEEDED Status: Active Protocol: Document 11/14/18 18:42 [facility] (Rec: 11/14/18 19:03 [facility] [id number]) Physical Therapy Current Condition Current Condition Evaluation Date 11/14/18 Treatment Diagnosis weakness, difficulty walking, possible PNA Weight Bearing Status Weight Bearing Status Full Weight Bearing M3 PT-IP Subjective Start: 11/14/18 18:42 Freq: NEEDED Status: Active Protocol: Document 11/15/18 11:42 [facility]B (Rec: 11/15/18 11:43 CLB [id number]) Subjective Physical Therapy Visit Type Type Patient Unavailable Notes Pt getting breathing tx will return to see pt this afternoon.
[2018-11-15 12:00] VITALS: BP 134/58; PULSE 78; RESP 16; TEMP 36.8; O2SAT 94
--- NOTE | 2018-11-15 12:01 | DI.RAD.S_ITS ---
PROCEDURE: XR CHEST 1V INDICATIONS: PNA TECHNIQUE: One view of the chest was acquired. COMPARISON: [facility], CR, XR CHEST 1V, 11/13/2018, 10:02. FINDINGS: Surgical changes and devices: Median sternotomy changes are present. Postoperative changes at the thoracolumbar junction are noted. Lungs and pleura: Mild pulmonary consolidation along the medial aspect of the right lung is present. No lobar consolidation, definite effusion, or definite pneumothorax is appreciated. Mediastinum: Mediastinal contours appear normal. Heart size is normal. There is aortic atherosclerosis. Bones and chest wall: No suspicious bony lesions. Small calcification overlying the right humeral head may represent calcific tendinitis. Overlying soft tissues appear unremarkable. IMPRESSION: Atelectasis versus pneumonia within the right middle lobe. Dictated by: Arley Casper M.D. on 11/15/2018 at 11:50 Approved by: Arley Casper M.D. on 11/15/2018 at 11:53
--- NOTE | 2018-11-15 12:15 | PC.NURSE ---
Pt is being discharged to home today. He denies pain. LS course with Rhonci. He is 98% on RA. Up with sba to use the restroom. IV antibiotic infusing now . in room visting.
--- NOTE | 2018-11-15 13:13 | CM.DANOTE ---
Discharge Planning/Care Management DCP: assessment: case received yesterday, EMR reviewed and discussed in Team Rounds. Pt is an 83 year old male who admitted afternoon 11/13 to care of hospitalist team. PCP: Dr. Aguirre Payer: Medicare and [facility]. Dr. Howard noted she was treating pt for pneumonia. Therapy was going to be ordered later when medically indicated. Caseload triage decision made to see pt today to continue the assessment of d/c needs process. DROPLET and CONTACT precautions: noted. Advanced directive, confirm from FAMILY Start: 11/13/18 13:52 Freq: Q24H Status: Active Protocol: Document 11/13/18 14:32 CEW (Rec: 11/13/18 14:33 CEW [id number]) Advance Directive, confirm on record Time 13:30 Person contacted Spouse Copy received No CM Discharge Assessment Start: 11/15/18 13:10 Freq: Status: Active Protocol: Document 11/15/18 13:10 ITV (Rec: 11/15/18 13:13 ITV [id number]) Discharge Planning Assessment Advance Directives? Yes Advance Directives on File No History Provided By Patient Family Member Medical Record Prior Living Arrangements House Household Members spouse Type of transporation used prior to Drives own vehicle admit Independent with ADL's Yes Is patient alert and oriented? Yes DME Already Rented / Owned FWW / Walker Comment has walker at home, has not been using it prior history of back surgery. Review Status In Process
--- NOTE | 2018-11-15 13:19 | CM.DPC ---
Addendum entered by Kay David LPN 11/15/18 13:37: JOSELITO #2: presented and Neela signed 1320. She noted her appeal process rights and said she was unsure if Dr. Howard was going to d/c her today as she was not certain that he was medically stable for this yet. But we will do whatever the doctor decides we should do. STEEPLECHASE JOCKEY Marianela noted that they had just gotten back from mobilizing to end of until with stair trial. Needed to pause for rest break but otherwise did well when utilizing the FWW. Original Note: DCP: continued: Case again discussed in Team Rounds with Dr. Howard stating she might d/c pt to home setting today and she did put in a d/c order. DC summary started: still in draft. Met with pt and his Neela, along with SONIA Kenny who was to see pt today. Iv antibiotic had just finished infusing. Introduced self and role. Pt and Pareshyeimi confirm that they live in [place], have 2 steps to enter the home and that pt has been functionally independent including driving. He has a FWW at home from a prior back surgery but has not been needing it. Pareshyeimi notes he might be safer with this. PT did see him late yesterday and deemed him stable from PT standpoint for home setting with OUTPT PT. Pt does not wish to be considered homebound although Neela says she will be encouraging him to stay home until he is recovered from this respiratory illness. Pt does have an appt now set up with Dr. Aguirre for Wednesday (02/19). JOSELITO #2: will present again to pt and Neela as seems likely the d/c will be finalized for today. INPT admission status: Confirmed by CRYSTAL Ross.
--- NOTE | 2018-11-15 13:49 | PT.IPTN ---
Current Diagnoses Sepsis, unspecified organism (11/13/18) Physical Therapy Treatment Note M2 PT-IP Current Condition Start: 11/14/18 18:42 Freq: NEEDED Status: Discharge Protocol: Document 11/14/18 18:42 [facility] (Rec: 11/14/18 19:03 [facility] [id number]) Physical Therapy Current Condition Current Condition Evaluation Date 11/14/18 Treatment Diagnosis weakness, difficulty walking, possible PNA Weight Bearing Status Weight Bearing Status Full Weight Bearing M3 PT-IP Subjective Start: 11/14/18 18:42 Freq: NEEDED Status: Discharge Protocol: Document 11/15/18 13:25 CLB (Rec: 11/15/18 16:35 CLB [id number]) Subjective Physical Therapy Visit Type Type Treatment Note Visit Start Time 13:25 Visit Stop Time 13:49 Total Visit Minutes 24 Number of ORAL SURGERY TECHNICIAN Visits 1 Physical Therapy Visit Comments Patient Comments Pt agreeable to do therapy. Patient Goals to go home M4 PT-IP Mobility and Gait Start: 11/14/18 18:42 Freq: NEEDED Status: Discharge Protocol: Document 11/15/18 13:25 CLB (Rec: 11/15/18 16:35 CLB [id number]) PT-Transfer Assessment Sit to and From Stand Sit to and from Stand Standby Assistance Equipment Transfer Assistive Device None Gait Belt Front Wheeled Walker Comments Mobility Comments Pt stood from chair and bed SBA Gait Assessment Gait Gait Assistance Required: Standby Assistance Distance (Feet) 200 Assistive Devices Assistive Device None Gait Belt Front Wheeled Walker Gait Deviations General Gait Pattern Decreased Stride Length Flexed Trunk Lateral Trunk Lean Factors Limiting Gait Function Factors Limiting Gait Function Decreased Strength Poor Balance Comments Gait Comments Pt ambulated ~30 ft with no AD with unsteady gait, pt trialed FWW with increased steadiness. Pt ambulated w/FWW /SBA ~200ft before requiring a seated rest break, pt seemed SOB, O2 saturation=98%. Stair Climbing Assessment Evaluation Level of Assist On Stairs Contact Guard Assistance 1 Person Assistance Devices Stair Climbing Assistive Devices Right Railing Technique/Endurance Stair Climbing Direction Ascend and Descend Stair Climbing Technique Step to Step Number of Steps Climbed 3 Stair Climbing Set # Repetitions (reps) 2 Comments Stair Climbing Comments Pt climbed steps once with therapist to instruct pt and . assisted pt successfully with stair climbing after instruction. M5 PT-IP Objective Assessments Start: 11/14/18 18:42 Freq: NEEDED Status: Discharge Protocol: Document 11/14/18 18:42 [facility] (Rec: 11/14/18 19:03 [facility] [id number]) Orientation Orientation/Cognition Level of Alertness Alert Strength Lower Extremity Strength Assessment Bilaterally Impaired M6 PT-IP Treatment Start: 11/14/18 18:42 Freq: NEEDED Status: Discharge Protocol: Document 11/14/18 18:42 [facility] (Rec: 11/14/18 19:03 [facility] [id number]) Physical Therapy Treatment Education Education Provided Safety M7 PT-IP Assessment and Plan Start: 11/14/18 18:42 Freq: NEEDED Status: Discharge Protocol: Document 11/15/18 13:25 CLB (Rec: 11/15/18 16:35 CLB [id number]) PT Summary Assessment and Plan Summary Impairments Strength Balance Gait Activity Tolerance Assessment Summary Pt is impulsive and requires cues for pacing during ambulation. Pt required a seated rest break after ~100ft before climbing stairs. Pt then ambulated ~100ft before requiring another seated rest break. Recommended to pt and that he use his FWW, pt agreed that he felt steadier with use of FWW and his FWW was appropriately adjusted for pts height. Pt's was able to assist pt on stairs after instruction. Goals Gait Goal Independent Gait Distance 150ft Other Goals up/down 2 stairs SBA Frequency of Treatment Frequency Of Treatment Once a Day Treatment Plan Physical Therapy Treatment Plan Gait Training Balance Retraining Discharge Planning Neuromuscular Re-ed Recommendations To Nursing Amount of Assist Needed Standby Assistance Discharge Recommendations PT Discharge Recommendations Home with Assistance Outpatient PT
== END 2018-11-15 14:40 | disposition home or self-care (01) | DRG 871 ==
LOC: ED 11:47 → AC 11:57
PROVIDERS: Internal Medicine; Nurse Practitioner Adult Health; Admitting Provider Internal Medicine; Emergency Provider Emergency Medicine; PCP Family Medicine; Visit Provider Internal Medicine
DX: A41.9 Sepsis, unspecified organism (principal); J96.01 Acute respiratory failure with hypoxia; J12.2 Parainfluenza virus pneumonia; J15.9 Unspecified bacterial pneumonia; I50.32 Chronic diastolic (congestive) heart failure; R65.20 Severe sepsis without septic shock; I95.89 Other hypotension; J44.9 Chronic obstructive pulmonary disease, unspecified; I11.0 Hypertensive heart disease with heart failure; Z87.891 Personal history of nicotine dependence; H40.9 Unspecified glaucoma; G47.00 Insomnia, unspecified; N40.0 Benign prostatic hyperplasia without lower urinary tract symptoms; Z95.2 Presence of prosthetic heart valve
CPT/HCPCS: 36415; 36591; 36600; 71045; 80048; 80053; 81001; 81003; 82550; 82805; 83605; 83735; 83880; 84145; 84484; 85025; 85610; 85730; 87040; 87070; 87086; 87205; 87633; 93005; 94640; 94667; 94760; 96365; 96367; 97116; 97162; 99214; 99284; 99285; J0696; J1644; J1940

== ENCOUNTER → 2018-11-19 13:45 | Outpatient (CLI) | payer MEDICARE, SELFPAY ==
[2018-11-13 13:10] VITALS: BMI 25.1
--- NOTE | 2018-11-19 | DI.RAD.S_ITS ---
PROCEDURE: XR CHEST 2V INDICATIONS: Arnaud hrt failure, Pneumonia, cough TECHNIQUE: 2 views of the chest were acquired. COMPARISON: None. FINDINGS: Surgical changes and devices: Median sternotomy changes are present. Postoperative changes of the lower thoracic spine are also present.. Lungs and pleura: Lungs are clear. No pleural effusions or pneumothorax. Mediastinum: Mediastinal contours are normal. Heart size is normal. Bones and chest wall: No suspicious bony abnormalities. Soft tissues appear unremarkable. IMPRESSION: No acute cardiopulmonary process is suspected. Dictated by: Arley Casper M.D. on 11/19/2018 at 13:31 Approved by: Arley Casper M.D. on 11/19/2018 at 13:32
== END ==
PROVIDERS: PCP Family Medicine; Visit Provider Nurse Practitioner Gerontology
DX: I50.9 Heart failure, unspecified (principal); J18.9 Pneumonia, unspecified organism
CPT/HCPCS: 71046

== ENCOUNTER 2018-12-29 10:43 | Outpatient (CLI) | payer MEDICARE, SELFPAY ==
[2018-11-13 13:10] VITALS: BMI 25.1
[2018-12-29] VITALS (10 sets, daily range): BP systolic 110–150; BP diastolic 58–73; PULSE 53–96; RESP 16–18; TEMP 36.3; O2SAT 68–100
--- NOTE | 2018-12-29 10:45 | DI.RAD.S_ITS ---
PROCEDURE: PAIN L/S MED/LAT N RFA BILAT INDICATIONS: SPONDYLOSIS FINDINGS: Fluoroscopic spot filming was performed to verify placement of spinal needles at the L4, L5 and S1 level(s), as labeled on the films. Appropriate location(s) of the needle tip(s) was confirmed by injection of iodinated contrast. IMPRESSION: Fluoroscopy for pain management. Dictated by: Yasmani Calvo M.D. on 12/29/2018 at 15:59 Approved by: Yasmani Calvo M.D. on 12/29/2018 at 15:59
--- NOTE | 2018-12-29 11:59 | PC.NURSE ---
Pre-0p note: To procedure at [id number]
[2018-12-29] MEDS: MIDAZOLAM 5 MG/5 ML VIAL IV (12:10)
[2018-12-29] MEDS: fentaNYL 100 MCG/2 ML INJ 50 MCG IV (12:10)
[2018-12-29] MEDS: BETAMETHASONE 30 MG/5 ML MDV 12 MG INJ (12:20)
[2018-12-29] MEDS: BUPIVACAINE 0.5% (PF) VIAL 2 ML INJ (12:20)
[2018-12-29] MEDS: LIDOCAINE 1% 20 ML 10 ML INJ (12:21)
--- NOTE | 2018-12-29 12:41 | PC.NURSE ---
ASSISTING PT OFF TABLE AND TRANSPORTING TO POST PROC AREA IN STABLE CONDITION.
--- NOTE | 2018-12-29 12:46 | P.PCN_ITS ---
Procedures Date/Time Date of procedure: 12/29/18 Time of procedure: 12:46 General Procedure description: PREOP DIAGNOSIS 1. RECALCITRANT FACET ARTHROPATHY, POST OP DIAGNOSIS 1. RECALCITRANT FACET ARTHROPATHY PROCEDURES 1. BILATERAL L4 AND L5 MEDIAL BRANCH RADIOFREQUENCY NEUROTOMY AND S1 DORSAL RAMUS BRANCH RADIOFREQUENCY NEUROTOMY, PHYSICIAN: Gerson Dhillon DO INDICATIONS: Avelino is referred by Dr. Aguirre for treatment of facet arthropathy. DESCRIPTION OF PROCEDURE Bilateral L4 and L5 medial branch radiofrequency neurotomy and right S1 dorsal ramus radiofrequency neurotomy under fluoroscopy with conscious sedation. The patient is well known to this clinic having undergone previous facet injections with good but temporary relief. The patient has experienced appropriate, concordant relief with previous facet and median branch blocks but the patient's pain has been recalcitrant to further conservative measures. Therefore, based upon the patient's relief and persistent symptoms, the patient is considered an appropriate candidate for facet rhizotomy. All of the patient's questions regarding the risks versus benefits of the procedure, including, but not limited to, bleeding, infection, temporary as well as lasting nerve injury, paralysis, stroke, and , as well treatment alternatives were answered to satisfaction. After obtaining informed consent, denial of pertinent drug allergies, as well as being made aware of the potential risks of bleeding, infection, spinal cord trauma, paralysis, temporary and permanent nerve damage, seizure, stroke, and possible , the patient was brought to the fluoroscopy suite and positioned prone on the fluoroscopy table. The lumbar region was prepped with Betadine and covered with a fenestrated drape in the usual sterile fashion. Appropriate monitors applied including pulse oximeter, pulse, and blood pressure for regular monitoring throughout the procedure. After review of previous anaesthesic history and IV conscious sedation the patient was deemed safe to proceed with todays procedure with IV conscious sedation as ASA class II designation. Safety time-out was performed to confirm patient ID, procedure to be performed and site of procedure. IV sedation was accomplished with a combination of 2mg of Versed and 50mcg of Fentanyl administered by the RN after DO order, titrated to patient comfort during the course of the procedure while the patient remained responsive to all verbal commands. After local infiltration using 1% lidocaine, under fluoroscopic guidance, a 10- cm RF insulated needle with a 10-mm active tip was positioned parallel to the junction of the right sacral ala and the superior articulating process where the S1 dorsal ramus resides. Needle placement was confirmed with sensory stimulation at 50 Hz, with motor stimulation of .5v on the right which produced local stimulation without radicular component. The stimulation was then increased to 1.5v with, once again, only local multifidus stimulation without radicular component. This was then followed by two discreet lesions performed at 80 degrees Celsius for 90 seconds each. The needle was then removed and the identical procedure was performed along the length of the right L5 medial branch with motor stimulation at .7v on the right. The identical procedure was once again performed along the length of the right L4 medial branch with motor stimulation of .5v on the right. The identical procedure was repeated on the left. The patient tolerated the procedure well without signs or symptoms of complications prior to transfer to the recovery area continued monitoring without incident. The patient was then transferred to the recovery area where they were observed for an appropriate period of time after the injection. The patient reported a VAS score of 9 prior to the procedure and a post-procedure VAS of 0. Total Fluoroscopy Time: 22.7 seconds Total Conscious Sedation Time: 34min POST OP INSTRUCTIONS The patient was provided a Pain Log to continue to record the patient's response to the target-specific procedure prior to the patient's follow-up visit with the referring physician. Additionally, specific post-injection care instructions and a contact number to our office were provided if concerns arise regarding possible complications associated with the procedure are suspected. Gerson Dhillon DO Complications: none
== END 2018-12-29 13:15 ==
LOC: RAD 10:44
PROVIDERS: PCP Family Medicine; Visit Provider Physical Medicine & Rehabilitation
DX: M47.817 Spondylosis without myelopathy or radiculopathy, lumbosacral region (principal); M47.816 Spondylosis without myelopathy or radiculopathy, lumbar region
CPT/HCPCS: 64635; 64636; 99152; 99153; J0702; J2250; J3010

== ENCOUNTER → 2019-02-07 13:09 | Outpatient (CLI) | payer MEDICARE, SELFPAY ==
[2018-11-13 13:10] VITALS: BMI 25.1
--- NOTE | 2019-02-07 13:11 | DI.MRI.S_ITS ---
PROCEDURE: MR LUMBAR SPINE WO CON INDICATIONS: neurogenic claudication TECHNIQUE: Noncontrast sagittal T1 spin echo and T2 fast echo, sagittal STIR, axial T1 and T2 fast spin echo through the lumbar spine. In cases with scoliosis, additional coronal T2 fast spin echo may be performed. COMPARISON: [facility], MR, T-SPINE WITHOUT CONTRAST, 01/29/2017, 7:46. [facility], CR, XR LUMBAR SPINE 2 OR 3 VIEWS, 07/27/2018, 13:30. [facility], XA, PAIN L/S MED/LAT N RFA BILAT, 12/29/2018, 12:12. FINDINGS: Image quality: Excellent. Alignment and Curvature: There is trace retrolisthesis of L1 on L2, L2 on L3, L3 on L4, trace anterolisthesis of L4 on L5. Posterior fusion is present at T11-12. Bone Marrow: Marrow is of normal overall signal. Prominent Schmorl's nodes are noted along the inferior endplates of T10, T12, L1, L2 and L4 as well as superior endplates of L3 and S1. Reactive marrow changes most notable at L1, L2 and L4 Schmorl's nodes. No acute vertebral body compression fractures. Spinal Cord: Conus medullaris terminates at the L2 level. Visualized cord demonstrates a focus of increased intramedullary signal at the level of T11-12 measuring 18 mm in craniocaudal dimension. It is noted that this portion of the thoracic cord is atrophied compared to distal portion.. Is noted this was present on the 2017 exam prior to posterior fusion. Paraspinous Soft Tissues: No paravertebral masses. Discs: Moderate to severe desiccation is present throughout the lumbar spine. L1-L2: Minimal disc bulge without spinal stenosis. Minimal to mild right foraminal narrowing with facet and ligamentum flavum hypertrophy. L2-L3: Mild disc bulge including disc osteophyte complex in the left lateral position. Minimal canal narrowing is noted. Moderate left foraminal narrowing with facet and ligamentum flavum hypertrophy. L3-L4: Mild disc bulge without spinal stenosis. No foraminal narrowing. Facet and ligamentum flavum hypertrophy are present. L4-L5: Mild disc bulge with severe spinal stenosis and canal compression. Mild to moderate bilateral foraminal narrowing with facet and ligamentum flavum hypertrophy. L5-S1: Mild disc bulge without spinal stenosis. Moderate to severe bilateral foraminal narrowing, right greater than left with facet and ligamentum flavum hypertrophy. IMPRESSION: 1. Multilevel degenerative changes. 2. Intramedullary signal within the lower thoracic cord likely sequela of prior spinal stenosis as noted on pre-posterior fixation exam of 2017. 3. Multilevel spinal stenosis most severe at L4-5 secondary to disc bulge with contributing effect of facet/ligamentum flavum arthropathy. 4. Multilevel foraminal narrowing most prominent at L5-S1 secondary to facet arthropathy. Dictated by: Nela Patton M.D. on 02/07/2019 at 16:11 Approved by: Nela Patton M.D. on 02/07/2019 at 16:20
== END ==
PROVIDERS: PCP Family Medicine; Visit Provider Registered Nurse
DX: M48.062 Spinal stenosis, lumbar region with neurogenic claudication (principal); M48.07 Spinal stenosis, lumbosacral region; M51.44 Schmorl's nodes, thoracic region; M47.816 Spondylosis without myelopathy or radiculopathy, lumbar region; M47.817 Spondylosis without myelopathy or radiculopathy, lumbosacral region; M43.16 Spondylolisthesis, lumbar region; S24.104A Unspecified injury at T11-T12 level of thoracic spinal cord, initial encounter; Z98.1 Arthrodesis status
CPT/HCPCS: 72148

== ENCOUNTER → 2019-12-04 11:00 | Outpatient (CLI) | payer MEDICARE, SELFPAY ==
[2019-11-15 15:34] VITALS: BMI 25.1
[2019-12-05 17:07] LABS: COVID19 Sendout Not Detected (Not Detect)
== END ==
PROVIDERS: PCP Family Medicine; Visit Provider Nurse Practitioner
DX: Z11.59 Encounter for screening for other viral diseases (principal)
CPT/HCPCS: 87635

== ENCOUNTER 2019-12-07 10:04 | Outpatient (CLI) | payer MEDICARE, SELFPAY ==
[2019-11-15 15:34] VITALS: BMI 25.1
[2019-12-07] VITALS (8 sets, daily range): BP systolic 101–134; BP diastolic 53–64; PULSE 53–68; RESP 14–19; TEMP 35.8; O2SAT 96–100
--- NOTE | 2019-12-07 10:07 | DI.RAD.S_ITS ---
PROCEDURE: PAIN L INTERLAMINAR/CAUDAL INJ INDICATIONS: SPONDYLOSIS COMPARISON: , XA, PAIN L INTERLAMINAR/CAUDAL INJ, 08/16/2018, 14:45. FINDINGS: Fluoroscopic spot filming was performed to verify placement of spinal needles at the L2-L3 level(s), as labeled on the films. Appropriate location(s) of the needle tip(s) was confirmed by injection of iodinated contrast. Dictated by: Dom Sinha M.D. on 12/07/2019 at 13:08 Approved by: Dom Sinha M.D. on 12/07/2019 at 13:16
[2019-12-07] MEDS: MIDAZOLAM 5 MG/5 ML VIAL IV (11:08)
[2019-12-07] MEDS: DEXAMETHASONE 10 MG/ML VIAL 20 MG INJ (11:12)
[2019-12-07] MEDS: IOPAMIDOL 15 ML VIAL 3 ML INJ (11:12)
[2019-12-07] MEDS: BETAMETHASONE 30 MG/5 ML MDV 6 MG INJ (11:12)
[2019-12-07] MEDS: BUPIVACAINE 0.25% (PF) VIAL 2 ML INJ (11:12)
--- NOTE | 2019-12-07 11:19 | P.PCN_ITS ---
Date/Time/Diagnoses Date of procedure: 12/07/19 Time of procedure: 11:19 Pre-procedure diagnosis: 1. HNP WITH RADICULAR FEATURES, 2. MULTILEVEL CENTRAL STENOSIS, Post-procedure diagnosis: same Procedure Notes Procedure: 1. FLUOROSCOPICALLY GUIDED CONTRAST CONTROLLED INTERLAMINAR EPIDURAL STEROID INJECTION - L2/3 Indications: Avelino is referred by for treatment of Bilateral Foraminal Stenosis L>R LE symptoms. Physician: Gerson Dhillon Total Fluoroscopy time (seconds): 12 Total sedation minutes: 9 Complications: none Procedure in detail & Post-procedure care: FINDINGS Multilevel Central Spinal Stenosis with Nerve Root Compression DESCRIPTION OF PROCEDURE Fluoroscopically guided, contrast-controlled L2/3 translaminar epidural steroid injection. Following review of allergy and review of potential side effects and complications, including, but not necessarily limited to, infection, allergic reaction, local tissue breakdown, temporary as well as permanent nerve injury, paralysis, stroke and possible , the patient indicated that the patient understood and agreed to proceed. An informed consent document was signed by the patient, witnessed by a nurse, and placed in the patient's chart. Additionally, other treatment options including modalities, medications, and physical therapy were reviewed with the patient. After review of previous anaesthesic history and IV conscious sedation the patient was deemed safe to proceed with today?s procedure with IV conscious sedation as ASA class II designation. Safety time-out was performed to confirm patient ID, procedure to be performed and site of procedure. IV sedation was accomplished with a combination of 2mg Versed administered by the RN after DO order, titrated to patient comfort during the course of the procedure while the patient remained responsive to all verbal commands. In the prone position, following sterile prep and drape of the lumbar region,the L2/3 translaminar space was identified fluoroscopically. The skin was anesthetized via a 25-gauge, 1.5-inch needle with 1% lidocaine solution. At this point, a 22-gauge short bevel spinal needle was atraumatically introduced and advanced under fluoroscopic guidance into the region of the L2/3 translaminar space. Depth was confirmed on lateral view. Radiological data, including multiple fluoroscopic views of the lumbar spine, r eveal a spinal needle at the L2/3 translaminar space. Lateral views then show placement of the needle in the epidural space. Subsequent views show contrast material flowing superiorly and inferiorly in the epidural space. No vascular or intrathecal uptake is observed. At this point, using loss of resistance technique with saline and air, the epidural space was entered. This was confirmed following negative aspiration with injection of approximately 1.5 cc of Isovue 200, showing excellent epidural flow without vascular or intrathecal uptake. At this point, 1 cc of 1% lidocaine solution combined with 3cc or 20mg of dexamethasone and 6mg of betamethasone was injected without incident. The patient tolerated the procedure well without signs or symptoms of complications prior to transfer to the recovery area continued monitoring without incident. The patient was then transferred to the recovery area where they were observed for an appropriate period of time after the injection. The patient reported a VAS score of 6 prior to the procedure and a post-procedure VAS of 0. POST OP INSTRUCTIONS The patient was provided a Pain Log to continue to record their response to the target-specific procedure prior to follow-up visit with their referring physician. Additionally, specific post-injection care instructions and a contact number to our office were provided if concerns arise regarding possible complications associated with the procedure are suspected.
== END 2019-12-07 12:03 | disposition home or self-care (01) ==
PROVIDERS: PCP Family Medicine; Referring Provider Physical Medicine & Rehabilitation; Visit Provider Physical Medicine & Rehabilitation
DX: M51.16 Intervertebral disc disorders with radiculopathy, lumbar region (principal); M48.061 Spinal stenosis, lumbar region without neurogenic claudication
CPT/HCPCS: 62323; J0702; J1100; J2250; J3010

== ENCOUNTER → 2020-02-08 14:30 | Outpatient (CLI) | payer MEDICARE, SELFPAY ==
[2019-11-15 15:34] VITALS: BMI 25.1
--- NOTE | 2020-02-08 14:32 | DI.RAD.S_ITS ---
PROCEDURE: XR LUMBAR SPINE MIN 4V INDICATIONS: update imaging TECHNIQUE: 5 views of the lumbar spine were acquired including both obliques. COMPARISON: None. FINDINGS: Bones: 5 nonrib-bearing vertebrae are present. There is normal bony alignment except for slight anterolisthesis of L4 on L5. No vertebral body compression fractures. No suspicious bony lesions. Prior T11-T12 posterior fusion procedure has been performed. No evidence of device loosening or disruption. On the lateral view note is made of mild to moderate L1-L2 and mild L2-L3 degenerative disc disease. Mild L4-L5 and moderate L5-S1 degenerative disc height reduction is present. There is progressively greater degenerative facet osteoarthritis from L3 through S1 and slight anterolisthesis is present at L4 on L5 where facet osteoarthritis is most prominent, bilaterally. Soft tissues: Overlying bowel gas pattern is normal. No suspicious soft tissue calcifications. Oblique images: No pars defects. IMPRESSION: No compression fracture found. The degenerative disc disease is [id number]. Facet osteoarthritis is most pronounced at L4-5 and L5-S1. Ligamentous laxity at L4-5 allows slight anterolisthesis of L4. Prior spinal fusion at the low thoracic spine crossing T11-T12 bilaterally. Dictated by: Jos Phillip M.D. on 02/08/2020 at 16:05 Approved by: Jos Phillip M.D. on 02/08/2020 at 16:08
== END ==
PROVIDERS: PCP Family Medicine; Referring Provider Physical Medicine & Rehabilitation; Visit Provider Physical Medicine & Rehabilitation
DX: M51.26 Other intervertebral disc displacement, lumbar region (principal); M51.36 Other intervertebral disc degeneration, lumbar region; M51.37 Other intervertebral disc degeneration, lumbosacral region; M47.817 Spondylosis without myelopathy or radiculopathy, lumbosacral region; M47.816 Spondylosis without myelopathy or radiculopathy, lumbar region; Z98.1 Arthrodesis status
CPT/HCPCS: 72110; 99214

== ENCOUNTER → 2020-02-26 10:47 | Outpatient (CLI) | payer MEDICARE, SELFPAY ==
[2020-02-08 16:11] VITALS: BMI 25.1
[2020-02-26 12:57] LABS: COVID19 -Nasal RAPID Negative (Negative)
== END ==
PROVIDERS: Physician Assistant; PCP Family Medicine; Visit Provider Physical Medicine & Rehabilitation
DX: Z11.59 Encounter for screening for other viral diseases (principal)
CPT/HCPCS: 87635

== ENCOUNTER 2020-02-27 10:41 | Outpatient (CLI) | payer MEDICARE, SELFPAY ==
[2020-02-08 16:11] VITALS: BMI 25.1
[2020-02-27] VITALS (8 sets, daily range): BP systolic 103–139; BP diastolic 56–73; PULSE 56–71; RESP 14–18; TEMP 36.1; O2SAT 97–100
--- NOTE | 2020-02-27 10:43 | DI.RAD.S_ITS ---
PROCEDURE: PAIN L/SI FACET INJ/BLK 1STL INDICATIONS: SPONDYLOSIS COMPARISON: [facility], CR, XR LUMBAR SPINE MIN 4V, 02/08/2020, 14:33. [facility], XA, PAIN L/SI FACET INJ/BLK 1STL, 10/06/2018, 15:31. FINDINGS: Fluoroscopic spot filming was performed to verify placement of spinal needles at the T12-L1, L1-L2, and L2-L3 levels on the left, as labeled on the films. Appropriate location(s) of the needle tip(s) was confirmed by injection of iodinated contrast. IMPRESSION: Intraprocedural examination within normal limits. Dictated by: Jamel Kapadia M.D. on 02/27/2020 at 11:53 Approved by: Jamel Kapadia M.D. on 02/27/2020 at 11:54
[2020-02-27] MEDS: MIDAZOLAM 5 MG/5 ML VIAL IV (12:12)
[2020-02-27] MEDS: IOPAMIDOL 15 ML VIAL 3 ML INJ (12:19)
[2020-02-27] MEDS: BUPIVACAINE 0.5% (PF) VIAL 5 ML INJ (12:19)
--- NOTE | 2020-02-27 12:22 | P.PCN_ITS ---
Date/Time/Diagnoses Date of procedure: 02/27/20 Time of procedure: 12:22 Pre-procedure diagnosis: 1. FACET ARTHROPATHY, 2. AXIAL LBP, 3. MULTILEVEL DDD, Post-procedure diagnosis: same Procedure Notes Procedure: 1. FLUOROSCOPICALLY GUIDED CONTRAST CONTROLLED FACET JOINT INJECTIONS LEFT T12/L1, L1/2, L2/3 Indications: Avelino is referred for treatment of Axial LBP Physician: Gerson Dhillon Total Fluoroscopy time (seconds): 6 Total sedation minutes: 8 Complications: none Procedure in detail & Post-procedure care: FINDINGS Multilevel Facet Arthropathy with Clinically significant axial LBP DESCRIPTION OF PROCEDURE Fluoroscopically guided, contrast-controlled left T12/L1, L1/2, L2/3 facet joint injections. Following review of allergy and review of potential side effects and complications, including, but not necessarily limited to, infection, allergic reaction, local tissue breakdown, stroke, temporary or permanent nerve injury, paralysis, and possible , the patient indicated that the patient understood and agreed to proceed. An informed consent document was signed by the patient, witnessed by a nurse, and placed in the patient's chart. Additionally, other tr eatment options including medications, modalities, and physical therapy were reviewed with the patient. After review of previous anaesthesic history and IV conscious sedation the patient was deemed safe to proceed with today?s procedure with IV conscious sedation as ASA class II designation. Safety time-out was performed to confirm patient ID, procedure to be performed and site of procedure. IV sedation was accomplished with a combination of 2mg of Versed and 50mcg of administered by the RN after DO order, titrated to patient comfort during the course of the procedure while the patient remained responsive to all verbal commands In the prone position, following sterile prep and drape of the lumbar region, the posterior aspect of the left T12/L1, L1/2, L2/3 facet joints were identified fluoroscopically. The skin was anesthetized via a 25-gauge 1.5-inch needle with 1% lidocaine solution into the corresponding facet joints. At this point, a 22- gauge 3.5-inch spinal needle was atraumatically introduced and advanced under fluoroscopic guidance into the corresponding facet joints. Following negative aspiration, injections of approximately 0.2-cc of Isovue 200 confirmed interarticular placement without vascular uptake. Radiological data, including multiple fluoroscopic views of the lumbosacral spine, reveal a spinal needle at the left L2/3, L3/4 facet joints. Subsequent views show flow of contrast material both superiorly and inferiorly within the joint space without vascular or intrathecal uptake. At this point, a total of 0.5cc including a mixture of 0.25cc Marcaine and 0.25cc betamethasone was injected without complication into each of the corresponding facet joints. The patient tolerated the procedure well without signs or symptoms of complications prior to transfer to the recovery area continued monitoring without incident. The patient was then transferred to the recovery area where they were observed for an appropriate period of time after the injection. The patient reported a VAS score of 7 prior to the procedure and a post-procedure VAS of 0. POST OP INSTRUCTIONS The patient was provided a Pain Log to continue to record their response to the target-specific procedure prior to follow-up visit with their referring physician. Additionally, specific post-injection care instructions and a contact number to our office were provided if concerns arise regarding possible complications associated with the procedure are suspected.
== END 2020-02-27 12:45 | disposition home or self-care (01) ==
LOC: RAD 10:42
PROVIDERS: Referring Provider Physical Medicine & Rehabilitation; Visit Provider Physical Medicine & Rehabilitation
DX: M47.816 Spondylosis without myelopathy or radiculopathy, lumbar region (principal); M54.5 Low back pain; M51.36 Other intervertebral disc degeneration, lumbar region
CPT/HCPCS: 64493; 64494; 64495; J0702; J2250; J3010

== ENCOUNTER 2020-04-05 16:08 | Emergency (ER) | payer MEDICARE, OTHER, SELFPAY ==
[2020-02-08 16:11] VITALS: BMI 25.1
[2020-04-05 16:21] VITALS: BP 129/60; PULSE 79; RESP 20; TEMP 36.4; O2SAT 98; BMI 25.8
--- NOTE | 2020-04-05 16:24 | DI.RAD.S_ITS ---
PROCEDURE: XR CHEST 2V INDICATIONS: increased shortness of breath, hx COPD TECHNIQUE: 2 views of the chest were acquired. COMPARISON: [facility], CR, CHEST 2 VIEW, 02/22/2017, 19:27. [facility], CR, XR CHEST 1V, 11/13/2018, 10:02. [facility], CR, XR CHEST 1V, 11/15/2018, 12:05. [facility], CR, XR CHEST 2V, 11/19/2018, 13:49. FINDINGS: Surgical changes and devices: Sternotomy wires and an aortic valve prosthesis can be seen. Lower thoracic spine fixation hardware is seen. Lungs and pleura: Lungs are clear. No pleural effusions or pneumothorax. The lungs are hyperexpanded, with flattening of the hemidiaphragms seen. Mediastinum: Mediastinal contours are normal. Heart size is normal. Bones and chest wall: No suspicious bony abnormalities. Age-appropriate bony degenerative changes are seen. Soft tissues appear unremarkable. IMPRESSION: Hyperexpanded lungs, without an acute cardiopulmonary process identified. Postoperative and degenerative changes are seen. Dictated by: Jamel Kapadia M.D. on 04/05/2020 at 15:34 Approved by: Jamel Kapadia M.D. on 04/05/2020 at 15:35
[2020-04-05 16:54] LABS: COVID19 -Nasal RAPID Negative (Negative)
--- NOTE | 2020-04-05 18:37 | ED_ITS ---
HPI - SOB/Dyspnea General Chief Complaint: Upper Respiratory Symptoms Stated Complaint: short of breath Time Seen by Provider: 04/05/20 18:37 Source: patient Mode of arrival: Ambulatory Limitations: no limitations History of Present Illness HPI Narrative: 84-year-old male former smoker with history of COPD presents with his at the request of his primary care provider. He had been out of his medications for little while and just had the prescriptions refilled yesterday and reports some mild increasing shortness of breath over the past 6 days. He denies any by pulse ox below 94% at home. He denies any chest pain, dizziness, lightheadedness nor nausea or vomiting. He has had no fever chills, runny nose or sore throat and denies any exposure to persons known to be positive for COVID. His PCP sent him here for COVID testing and further evaluation. He states he feels fine and would prefer not to be here. Related Data Home Medications Medication Instructions Recorded Confirmed furosemide 40 mg PO QAM #0 02/22/17 02/08/20 latanoprost [Xalatan] 1 drp EYE-RIGHT BEDTIME #0 02/22/17 02/08/20 timolol maleate 1 drp EYE-BOTH BID #0 02/22/17 02/08/20 aspirin 81 mg tablet,delayed 81 mg PO BEDTIME 02/25/18 02/08/20 release finasteride 5 mg tablet 5 mg PO BEDTIME 02/25/18 02/08/20 potassium chloride 10 mEq 10 meq PO DAILY 02/25/18 02/08/20 capsule,extended release simvastatin 40 mg tablet 40 mg PO BEDTIME 02/25/18 02/08/20 Spiriva with HandiHaler 1 cap INHALATION DAILY 04/21/18 02/08/20 hydrocodone-acetaminophen PO 10/09/19 02/08/20 losartan 100 mg tablet mg PO DAILY 10/09/19 02/08/20 zolpidem 10 mg tablet mg PO 10/09/19 02/08/20 Previous Rx's Medication Instructions Recorded diclofenac sodium 1 % topical gel 2 g TOP QID #100 gram MDD 8 gm 03/09/19 gabapentin 300 mg capsule 900 mg PO TID #200 cap 03/09/19 tramadol 50 mg tablet 50 mg PO BID PRN #60 tab 02/08/20 Allergies Allergy/AdvReac Type Severity Reaction Status Date / Time No Known Drug Allergies Allergy Verified 04/05/20 16:21 Review of Systems Constitutional Constitutional: Denies chills, Denies fatigue, Denies fever(s), Denies frequent falls, Denies lethargy and Denies weakness Eyes Eyes: Denies change in vision, Denies eye discharge, Denies irritation and Denies loss of vision ENT Ears, Nose, Mouth, and Throat: Denies change in voice, Denies dizziness, Denies neck pain, Denies sore throat and Denies throat swelling Cardiovascular Cardiovascular: Denies chest pain, Denies irregular heart rhythm, Denies lightheadedness, Denies palpitations, Reports dyspnea, Denies dyspnea on exertion and Denies orthopnea Respiratory Respiratory: Denies cough, Reports dyspnea, Denies dyspnea on exertion and Denies wheezing Gastrointestinal Gastrointestinal: Denies abdominal pain, Denies change in bowel habits, Denies diarrhea, Denies nausea and Denies vomiting Musculoskeletal Musculoskeletal: Denies neck pain and Denies numbness Integumentary/Breasts Skin/Breast: Denies pruritus, Denies erythema, Denies rash and Denies wounds Neurologic Neurologic: Denies behavioral changes, Denies confusion, Denies dizziness, Denies frequent falls, Denies loss of vision, Denies numbness and Denies weakness Psychiatric Psychiatric: Denies anxiety, Denies behavioral changes, Denies confusion, Denies depression, Denies homicidal ideation and Denies suicidal ideation Endocrine Endocrine: Denies fatigue, Denies flushing and Denies palpitations Hematologic/Lymphatic Hematologic/Lymphatic: Denies easy bruising Allergic/Immunologic Allergic/Immunologic: Denies urticaria, Denies throat swelling and Denies wheezing Patient History Medical History Acute on chronic diastolic congestive heart failure Amputation of finger, left Arthritis Back pain Bleeds easily Carotid artery disease Cervical arthritis Chronic diastolic congestive heart failure COPD (chronic obstructive pulmonary disease) Dyslipidemia Easy bruisability Enlarged prostate Graves' eye disease Hearing impaired Herniated nucleus pulposus, L2-3 Left shoulder pain Mitral valve regurgitation Occlusion of left internal carotid artery Peripheral arterial disease Rash Rheumatoid arthritis Rheumatoid arthritis involving both hands Shingles Thoracic spinal stenosis Surgical History H/O cardiac catheterization (~2003) History of right cataract extraction History of thoracic spinal fusion Hx of tonsillectomy S/P aortic valve replacement with bioprosthetic valve (~2003) Social History household members: spouse Smoking Status: Former smoker alcohol intake: current Smoking Status: Former smoker alcohol intake frequency: 0-2 drinks per day Substance Use Type: does not use Exam Narrative Exam Narrative: GENERAL: [84] year old patient appears stated age. Well- nourished, well-developed patient, in no obvious distress, resting comfortably HEAD: Atraumatic. EYES: Pupils equal round and reactive. Extraocular motions intact. ENT: Nose without bleeding, purulent drainage. Throat without erythema, tonsillar hypertrophy or exudate. Airway patent. NECK: Trachea midline. Non tender, No JVD CARDIOVASCULAR: Regular rate and rhythm without murmurs, gallops, or rubs. RESPIRATORY: Decreased breath sounds bilaterally with prolonged expiratory phase. No crackles, rhonchi or wheezes GASTROINTESTINAL: Abdomen soft, non-tender, nondistended. EXTREMITIES: No edema or joint tenderness. BACK: Nontender without deformity or crepitance. No flank tenderness. NEURO: AOx3. SKIN: No rash or erythema of visible areas Initial Vital Signs Initial Vital Signs: Vital Signs Temperature 97.5 F L 04/05/20 16:21 Pulse Rate 79 04/05/20 16:21 Respiratory Rate 20 04/05/20 16:21 Blood Pressure 129/60 04/05/20 16:21 Pulse Oximetry 98 04/05/20 16:21 Course Orders Ordered: ED Orders 04/05/20 16:24 XR chest 2V Stat 04/05/20 16:25 COVID19 Stat Vital Signs Vital signs: Vital Signs - 8 hr 04/05/20 16:21 Temperature 97.5 F L Pulse Rate 79 Respiratory Rate 20 Blood Pressure 129/60 Pulse Oximetry 98 MDM - SOB/Dyspnea Lab Data Labs: Lab Results 04/05/20 Range/Units 16:25 SARS-CoV-2 (PCR) Negative (Negative) Imaging Data Chest x-ray: Radiologist's Impression: [address] [id number] ReportSigned Patient: Avelino Boateng LMR#: [id number]: 8Acct:[id number]/Sex: 84 / MDate of Service: 04/05/20Loc: EDAccession Number: [id number] Procedure: XR chest 2V Ordering Provider: Amy Cummins MD PROCEDURE: XR CHEST 2V INDICATIONS: increased shortness of breath, hx COPD TECHNIQUE: 2 views of the chest were acquired. COMPARISON: [facility], CR, CHEST 2 VIEW, 02/22/2017, 19:27. [facility], CR, XR CHEST 1V, 11/13/2018, 10:02. [facility], CR, XR CHEST 1V, 11/15/2018, 12:05. [facility], CR, XR CHEST 2V, 11/19/2018, 13:49. FINDINGS: Surgical changes and devices: Sternotomy wires and an aortic valve prosthesis can be seen. Lower thoracic spine fixation hardware is seen. Lungs and pleura: Lungs are clear. No pleural effusions or pneumothorax. The lungs are hyperexpanded, with flattening of the hemidiaphragms seen. Mediastinum: Mediastinal contours are normal. Heart size is normal. Bones and chest wall: No suspicious bony abnormalities. Age-appropriate bony degenerative changes are seen. Soft tissues appear unremarkable. IMPRESSION: Hyperexpanded lungs, without an acute cardiopulmonary process identified. Postoperative and degenerative changes are seen. Dictated by: Jamel Kapadia M.D. on 04/05/2020 at 15:34 Approved by: Jamel Kapadia M.D. on 04/05/2020 at 15:35 MDM Narrative Medical decision making narrative: Multiple diagnoses considered including exacerbation of CHF, COPD, COVID, PNA or other. Patient with very reassuring vitals, CXR, and exam. He and refuse any further work up and state they will return if symptoms worsen. Happy to know he has good CXR and COVID test, would prefer to get back on his meds and see how he does. Return precautions given and questions answered to his apparent satisfaction Discharge Plan Departure Patient Disposition: Home Clinical Impression: Breath shortness Instructions: DI for Shortness of Breath Activity Restrictions/Additional Instructions: *You have been diagnosed with [mild shortness of breath. Your physical exam, chest x-ray and COVID test are very reassuring] *What to do: * please continue to take medications as directed *Follow up with your primary care provider in 2-3 days, call for an appointment. Let them know you were seen in the Emergency Department and that we ask that you be seen in follow up *Return to ER if you should have any new, worsening or concerning symptoms Prescriptions: No Action latanoprost [Xalatan] 0.005 % drops 1 drp EYE-RIGHT BEDTIME Qty: 0 RF: 0 timolol maleate 0.5 % drops 1 drp EYE-BOTH BID Qty: 0 RF: 0 furosemide 40 MG tablet 40 mg PO QAM Qty: 0 RF: 0 Spiriva with HandiHaler 18 mcg Capsule, W/Inhalation Device 1 cap INHALATION DAILY RF: 0 potassium chloride 10 mEq capsule, extended release 10 meq PO DAILY RF: 0 simvastatin 40 mg tablet 40 mg PO BEDTIME RF: 0 aspirin [Aspir-81] 81 mg tablet,delayed release (DR/EC) 81 mg PO BEDTIME RF: 0 finasteride 5 mg tablet 5 mg PO BEDTIME RF: 0 diclofenac sodium 1 % gel 2 g TOP QID MDD 8 gm Qty: 100 RF: 5 gabapentin 300 mg capsule 900 mg PO TID Qty: 200 RF: 5 zolpidem 10 mg tablet PO RF: 0 losartan 100 mg tablet PO DAILY RF: 0 hydrocodone-acetaminophen PO RF: 0 tramadol 50 mg tablet 50 mg PO BID PRN (Reason: pain) Qty: 60 RF: 1
[2020-04-05 18:53] VITALS: BP 175/73; PULSE 76; O2SAT 99
== END 2020-04-05 18:54 | disposition home or self-care (01) ==
PROVIDERS: Emergency Medicine; Emergency Provider Emergency Medicine
DX: R06.02 Shortness of breath (principal); I25.10 Atherosclerotic heart disease of native coronary artery without angina pectoris; J44.9 Chronic obstructive pulmonary disease, unspecified; E78.5 Hyperlipidemia, unspecified; N40.0 Benign prostatic hyperplasia without lower urinary tract symptoms; Z20.822 Contact with and (suspected) exposure to COVID-19
CPT/HCPCS: 71046; 87635; 99281; 99283; C9803

== ENCOUNTER 2020-08-05 12:26 | Emergency (ER) | payer OTHER, MEDICARE, SELFPAY ==
[2020-02-08 16:11] VITALS: BMI 25.1
[2020-08-05 12:34] VITALS: BP 129/62; PULSE 69; RESP 16; TEMP 36.1; O2SAT 98; BMI 25.8
--- NOTE | 2020-08-05 12:36 | DI.RAD.S_ITS ---
PROCEDURE: XR CHEST 1V INDICATIONS: chest pain TECHNIQUE: One view of the chest was acquired. COMPARISON: [facility], CR, XR CHEST 2V, 04/05/2020, 16:26. [facility], CR, XR CHEST 1V, 11/15/2018, 12:05. FINDINGS: Surgical changes and devices: Sternotomy. There is a aortic valve prosthesis. Lungs and pleura: Lungs are clear. No pleural effusions or pneumothorax. Mediastinum: Mediastinal contours appear normal. Heart size is normal. Bones and chest wall: No suspicious bony lesions. Overlying soft tissues appear unremarkable. Surgical fusion of the lower thoracic spine. IMPRESSION: No acute cardiopulmonary disease. Dictated by: Yasmani Calvo M.D. on 08/05/2020 at 13:01 Approved by: Yasmani Calvo M.D. on 08/05/2020 at 13:06
--- NOTE | 2020-08-05 13:11 | ED.CHESTPAIN ---
HPI - Chest Pain General Chief Complaint: Chest Pain Stated Complaint: chest pain Time Seen by Provider: 08/05/20 12:30 Source: patient Mode of arrival: Ambulatory Limitations: no limitations History of Present Illness HPI narrative: 85-year-old male with a history of valvular cardiac disease presents with a few weeks of episodic chest pain on the left side of his chest. He denies any obvious provocation or palliation nor radiation. He states that the episodes are sharp and stabbing and rather brief and their duration. He has not had 1 since at least 1:00 a.m.. 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 He denies associated trouble such as dizziness, weakness, lightheadedness, shortness of breath. He denies any near syncope. He denies any nausea, vomiting or unexplained diaphoresis. He is currently asymptomatic. He denies recent travel, history of blood clots or cancer. Related Data Home Medications Medication Instructions Recorded Confirmed furosemide 40 mg PO QAM #0 02/22/17 02/08/20 latanoprost [Xalatan] 1 drp EYE-RIGHT BEDTIME #0 02/22/17 02/08/20 timolol maleate 1 drp EYE-BOTH BID #0 02/22/17 02/08/20 aspirin 81 mg tablet,delayed 81 mg PO BEDTIME 02/25/18 02/08/20 release finasteride 5 mg tablet 5 mg PO BEDTIME 02/25/18 02/08/20 potassium chloride 10 mEq 10 meq PO DAILY 02/25/18 02/08/20 capsule,extended release simvastatin 40 mg tablet 40 mg PO BEDTIME 02/25/18 02/08/20 Spiriva with HandiHaler 1 cap INHALATION DAILY 04/21/18 02/08/20 hydrocodone-acetaminophen PO 10/09/19 02/08/20 losartan 100 mg tablet mg PO DAILY 10/09/19 02/08/20 zolpidem 10 mg tablet mg PO 10/09/19 02/08/20 Previous Rx's Medication Instructions Recorded diclofenac sodium 1 % topical gel 2 g TOP QID #100 gram MDD 8 gm 03/09/19 gabapentin 300 mg capsule 900 mg PO TID #200 cap 03/09/19 tramadol 50 mg tablet 50 mg PO BID PRN #60 tab 04/18/20 Allergies Allergy/AdvReac Type Severity Reaction Status Date / Time No Known Drug Allergies Allergy Verified 08/05/20 12:36 Review of Systems Constitutional Constitutional: Denies chills, Denies fatigue, Denies fever(s), Denies frequent falls, Denies lethargy and Denies weakness Eyes Eyes: Denies change in vision, Denies eye discharge, Denies irritation and Denies loss of vision ENT Ears, Nose, Mouth, and Throat: Denies change in voice, Denies dizziness, Denies neck pain, Denies sore throat and Denies throat swelling Cardiovascular Cardiovascular: Reports chest pain, Denies irregular heart rhythm, Denies lightheadedness, Denies palpitations, Denies dyspnea, Denies dyspnea on exertion and Denies orthopnea Respiratory Respiratory: Denies cough, Denies dyspnea, Denies dyspnea on exertion and Denies wheezing Gastrointestinal Gastrointestinal: Denies abdominal pain, Denies change in bowel habits, Denies diarrhea, Denies nausea and Denies vomiting Musculoskeletal Musculoskeletal: Denies neck pain and Denies numbness Integumentary/Breasts Skin/Breast: Denies pruritus, Denies erythema, Denies rash and Denies wounds Neurologic Neurologic: Denies behavioral changes, Denies confusion, Denies dizziness, Denies frequent falls, Denies loss of vision, Denies numbness and Denies weakness Psychiatric Psychiatric: Denies anxiety, Denies behavioral changes, Denies confusion, Denies depression, Denies homicidal ideation and Denies suicidal ideation Endocrine Endocrine: Denies fatigue, Denies flushing and Denies palpitations Hematologic/Lymphatic Hematologic/Lymphatic: Denies easy bruising Allergic/Immunologic Allergic/Immunologic: Denies urticaria, Denies throat swelling and Denies wheezing Patient History Medical History Acute on chronic diastolic congestive heart failure Amputation of finger, left Arthritis Back pain Bleeds easily Carotid artery disease Cervical arthritis Chronic diastolic congestive heart failure COPD (chronic obstructive pulmonary disease) Dyslipidemia Easy bruisability Enlarged prostate Graves' eye disease Hearing impaired Herniated nucleus pulposus, L2-3 Left shoulder pain Mitral valve regurgitation Occlusion of left internal carotid artery Peripheral arterial disease Rash Rheumatoid arthritis Rheumatoid arthritis involving both hands Shingles Thoracic spinal stenosis Surgical History H/O cardiac catheterization (~2003) History of right cataract extraction History of thoracic spinal fusion Hx of tonsillectomy S/P aortic valve replacement with bioprosthetic valve (~2003) Social History household members: spouse Smoking Status: Former smoker alcohol intake: current Smoking Status: Former smoker alcohol intake frequency: 3 or more drinks per day Alcohol type: wine Substance Use Type: does not use Exam Narrative Exam Narrative: GENERAL: [85] year old patient appears stated age. Well-nourished, well-developed patient, in mild distress. HEAD: Atraumatic. Normocephalic. EYES: Pupils equal round and reactive. Extraocular motions intact. No scleral icterus. No injection or drainage. ENT: Nose without bleeding, purulent drainage. Throat without erythema, tonsillar hypertrophy or exudate. Airway patent. NECK: Trachea midline. Non tender CARDIOVASCULAR: Regular rate and rhythm without murmurs, gallops, or rubs. Left chest mildly tender to palpation RESPIRATORY: Clear to auscultation. Breath sounds equal bilaterally. No wheezes, rales, or rhonchi. GASTROINTESTINAL: Abdomen soft, non-tender, nondistended. EXTREMITIES: No edema or joint tenderness. BACK: Nontender without deformity or crepitance. No flank tenderness. NEURO: AOx3. SKIN: No rash or erythema of visible areas Initial Vital Signs Initial Vital Signs: Vital Signs Temperature 97 F L 08/05/20 12:34 Pulse Rate 69 08/05/20 12:34 Respiratory Rate 16 08/05/20 12:34 Blood Pressure 129/62 08/05/20 12:34 Pulse Oximetry 98 08/05/20 12:34 Course Course Course Narrative: Patient with out classic ischemic findings. There is no exertional component to his episodic chest pain. I have spoken with Cardiology and they sure the opinion that given the history and physical as well as absence of classic findings on EKG or labs that the patient is appropriate for discharge and follow up, likely will benefit from an echocardiogram as an outpatient. Orders Ordered: ED Orders 08/05/20 12:28 EKG-12 Lead Stat 08/05/20 12:36 XR chest 1V Stat 08/05/20 12:41 Complete Blood Count AUTO DIFF Stat Comprehensive Metabolic Panel Stat Lipase Stat Partial Thromboplastin Time Stat Prothrombin Time INR Stat Troponin & CK Cardiac Panel Stat Vital Signs Vital signs: Vital Signs - 8 hr 08/05/20 12:34 08/05/20 14:29 08/05/20 14:30 Temperature 97 F L Pulse Rate 69 59 L 61 Respiratory Rate 16 Blood Pressure 129/62 Pulse Oximetry 98 99 98 08/05/20 14:34 08/05/20 14:35 Temperature Pulse Rate 64 65 Respiratory Rate Blood Pressure 161/72 H 161/77 H Pulse Oximetry 99 99 MDM - Chest Pain Lab Data Result diagrams: 08/05/20 12:41 08/05/20 12:41 Labs: Lab Results 08/05/20 08/05/20 08/05/20 Range/Units 12:41 12:41 12:41 WBC 10.1 (4.5-11.0) X10^3/uL RBC 3.64 L (4.5-5.9) X10^6/uL Hgb 11.2 L (13.5-17.5) g/dL Hct 33.5 L (41-53) % MCV 92.1 (80-100) fL MCH 30.8 (26-34) PG MCHC 33.4 (30-36) % RDW 19.0 H (11.6-14.8) % Plt Count 452 H (150-400) X10^3/uL Neut % (Auto) 63.6 (50-75) % Lymph % (Auto) 15.3 L (25-40) % Smith % (Auto) 12.3 (3-14) % Eos % (Auto) 8.1 H (2-4) % Baso % (Auto) 0.7 (0-2) % Neut # (Auto) 6400 (2844-2883) /uL Lymph # (Auto) 1500 (5769-1680) /uL Smith # (Auto) 1200 H (0-900) /uL Eos # (Auto) 800 H (0-450) /uL Baso # (Auto) 100 (0-100) /uL PT 11.5 (10.1-12.7) SECONDS INR 1.0 (0.9-1.3) APTT 31 (26.4-36.2) SECONDS Sodium 136 L (137-145) mmol/L Potassium 4.8 (3.4-5.1) mmol/L Chloride 103 (98-107) mmol/L Carbon Dioxide 27 (22-32) mmol/L BUN 23 H (9-20) mg/dL Creatinine 0.67 (0.66-1.25) mg/dL Estimated GFR > 60.0 (>60) mL/min BUN/Creatinine Ratio 34.3 H (6-22) Glucose 106 (80-110) mg/dL Calcium 9.6 (8.4-10.2) mg/dL Total Bilirubin 0.3 (0.2-1.3) mg/dL AST 34 (17-59) IU/L ALT 24 (<50) IU/L Alkaline Phosphatase 57 (38-126) U/L Total Creatine Kinase 62 (55-170) U/L CK-MB (CK-2) TNP CK-MB (CK-2) Rel Index TNP Troponin I < 0.012 (0.01-0.034) ng/mL Total Protein 7.4 (6.3-8.2) g/dL Albumin 4.1 (3.5-5.0) g/dL Globulin 3.3 (1.7-4.1) g/dL Albumin/Globulin Ratio 1.2 (1.0-2.8) Lipase 281 (23-300) U/L Discharge Plan Departure Patient Disposition: Home Clinical Impression: Atypical chest pain Instructions: DI for Atypical Chest Pain Activity Restrictions/Additional Instructions: *You have been diagnosed with [atypical left-sided chest pain. Your EKG, lab work and description of symptoms is very reassuring. I have discussed your case with on-call Cardiology and they agree that close follow-up an outpatient evaluation is indicated] *What to do: *Please continue to take your regular medications as directed. [ ] New medication prescriptions sent to your pharmacy: [ ] [ ] New medication written as a paper prescription [x ] No new medications given *Please follow up with your primary care provider in 2-3 days, call for an appointment. Let them know you were seen in the Emergency Department and that we ask that you be seen in follow up. We will electronically transmit a record of today's note if your PCP is in our system *If you do not have a primary care provider please contact the [facility] Resource line at [phone]. They will ask some questions about your medical history and help get you set up with a doctor in the community. *Return to Emergency Department if you should have any new, worsening or concerning symptoms, such as [fever greater than 101 F, shaking chills, worsening pain, persistent vomiting or other bothersome symptoms] Prescriptions: No Action latanoprost [Xalatan] 0.005 % drops 1 drp EYE-RIGHT BEDTIME Qty: 0 RF: 0 timolol maleate 0.5 % drops 1 drp EYE-BOTH BID Qty: 0 RF: 0 furosemide 40 MG tablet 40 mg PO QAM Qty: 0 RF: 0 tramadol 50 mg tablet 50 mg PO BID PRN (Reason: pain) Qty: 60 RF: 1 Spiriva with HandiHaler 18 mcg Capsule, W/Inhalation Device 1 cap INHALATION DAILY RF: 0 potassium chloride 10 mEq capsule, extended release 10 meq PO DAILY RF: 0 simvastatin 40 mg tablet 40 mg PO BEDTIME RF: 0 aspirin [Aspir-81] 81 mg tablet,delayed release (DR/EC) 81 mg PO BEDTIME RF: 0 finasteride 5 mg tablet 5 mg PO BEDTIME RF: 0 diclofenac sodium 1 % gel 2 g TOP QID MDD 8 gm Qty: 100 RF: 5 gabapentin 300 mg capsule 900 mg PO TID Qty: 200 RF: 5 zolpidem 10 mg tablet PO RF: 0 losartan 100 mg tablet PO DAILY RF: 0 hydrocodone-acetaminophen PO RF: 0 Referrals: [facility] [Outside] Gerson Flores MD [Physician] -
[2020-08-05 13:15] LABS: Add Manual Diff / Slide Review NO; Basophils Absolute Auto 100 /uL (0-100); Basophils Percent Auto 0.7 % (0-2); Eosinophils Absolute Auto 800 /uL (0-450); Eosinophils Percent Auto 8.1 % (2-4); Hematocrit 33.5 % (41-53); Hemoglobin 11.2 g/dL (13.5-17.5); Lymphocytes Absolute Auto 1500 /uL (1100-4500); Lymphocytes Percent Auto 15.3 % (25-40); Mean Corpuscular HGB Conc 33.4 % (30-36); Mean Corpuscular Hemoglobin 30.8 PG (26-34); Mean Corpuscular Volume 92.1 fL (80-100); Monocytes Absolute Auto 1200 /uL (0-900); Monocytes Percent Auto 12.3 % (3-14); Neutrophils Absolute Auto 6400 /uL (1500-7000); Neutrophils Percent Auto 63.6 % (50-75); Platelet Count 452 X10^3/uL (150-400); Red Blood Cell Count 3.64 X10^6/uL (4.5-5.9); White Blood Cell Count 10.1 X10^3/uL (4.5-11.0)
[2020-08-05 13:18] LABS: Alanine Aminotransferase 24 IU/L (<50); Albumin 4.1 g/dL (3.5-5.0); Albumin Globulin Ratio 1.2 (1.0-2.8); Alkaline Phosphatase 57 U/L (38-126); Aspartate Aminotransferase 34 IU/L (17-59); BUN Creatinine Ratio 34.3 (6-22); Bilirubin Total 0.3 mg/dL (0.2-1.3); Blood Urea Nitrogen 23 mg/dL (9-20); Calcium 9.6 mg/dL (8.4-10.2); Carbon Dioxide 27 mmol/L (22-32); Chloride 103 mmol/L (98-107); Creatine Kinase 62 U/L (55-170); Estimated Glomerular Filt Rate > 60.0 mL/min (>60); Globulin 3.3 g/dL (1.7-4.1); Glucose 106 mg/dL (80-110); HEMOLYSIS 19 (0-50); Lipase 281 U/L (23-300); Potassium 4.8 mmol/L (3.4-5.1); Sodium 136 mmol/L (137-145); Total Protein 7.4 g/dL (6.3-8.2)
[2020-08-05 13:20] LABS: Prothrombin Time 11.5 SECONDS (10.1-12.7)
[2020-08-05 13:23] LABS: PTT Partial Thromboplastin Tim 31 SECONDS (26.4-36.2)
[2020-08-05 13:29] LABS: Troponin I < 0.012 ng/mL (0.01-0.034)
[2020-08-05 14:29] VITALS: PULSE 59; O2SAT 99
[2020-08-05 14:30] VITALS: PULSE 61; O2SAT 98
[2020-08-05 14:34] VITALS: BP 161/72; PULSE 64; O2SAT 99
[2020-08-05 14:35] VITALS: BP 161/77; PULSE 65; O2SAT 99
== END 2020-08-05 14:43 | disposition home or self-care (01) ==
PROVIDERS: Emergency Provider Emergency Medicine
DX: R07.89 Other chest pain (principal)
CPT/HCPCS: 36415; 71045; 80053; 82550; 83690; 84484; 85025; 85610; 85730; 93005; 93010; 99284

== ENCOUNTER → 2021-12-11 15:46 | Outpatient (CLI) | payer OTHER, SELFPAY ==
[2020-02-08 16:11] VITALS: BMI 25.1
--- NOTE | 2021-12-11 15:47 | DI.MRI.S_ITS ---
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 After the administration of contrast, axial and coronal and sagittal T1 spin echo with fat saturation through the brain. COMPARISON: [facility], CT, HEAD WITHOUT CONTRAST, 02/18/2017, 12:04. [facility], MR, MR BRAIN WITH/WITHOUT CONTRAST, 09/01/2021, 14:50. FINDINGS: Image quality: Excellent. CSF spaces: Basal cisterns are patent. No extra-axial fluid collections. Ventricles are normal in size and shape. Brain: No midline shift. No intracranial bleeds or masses. No abnormal intracranial enhancement. There is cerebral volume loss for age. There is periventricular white matter chronic small vessel ischemic change. The brainstem appears normal. Diffusion-weighted images demonstrate no acute ischemic insults. No chronic ischemic insults. Normal intravascular flow voids are present. Skull and face: Calvarial marrow is normal in signal. Orbits appear normal. A right lens replacement can be seen. Sinuses: Moderate mucosal thickening is seen within the left ethmoid air cells, with mild mucosal thickening seen elsewhere within the paranasal sinuses. No abnormal fluid is seen within the mastoid air cells. IMPRESSION: No findings of metastatic disease can be seen. No masses or abnormal enhancement can be seen. No imaging explanation is found for the patient's presenting history of headache. Dictated by: Jamel Kapadia M.D. on 12/11/2021 at 16:33 Approved by: Jamel Kapadia M.D. on 12/11/2021 at 16:37
== END ==
PROVIDERS: Referring Provider Internal Medicine; Visit Provider Internal Medicine
DX: C34.90 Malignant neoplasm of unspecified part of unspecified bronchus or lung (principal); R51.9 Headache, unspecified
CPT/HCPCS: 70553

== ENCOUNTER 2021-12-24 14:13 | Emergency (ER) | payer OTHER, SELFPAY ==
[2020-02-08 16:11] VITALS: BMI 25.1
[2021-12-24 14:56] VITALS: BP 106/51; PULSE 86; RESP 24; TEMP 36.4; O2SAT 96
--- NOTE | 2021-12-24 14:58 | DI.RAD.S_ITS ---
PROCEDURE: XR ACUTE ABDOMEN SERIES INDICATIONS: constipation TECHNIQUE: One view chest and two views of the abdomen were acquired. COMPARISON: None. FINDINGS: Surgical changes and devices: Median sternotomy wires are seen. Prosthetic heart valve is noted. Fusion hardware in lower is seen at T11-12 level. Chest: Lungs are clear. Heart size is normal. No pleural effusions. No pneumoperitoneum. Abdomen: Bowel gas pattern is normal. No suspicious calcifications. Visualized solid organ contours appear normal. Bones: No suspicious bony lesions. IMPRESSION: No evidence of bowel obstruction or gross free air. No significant fecal burden. No acute cardiopulmonary pathology. Dictated by: Gary Marie M.D. on 12/24/2021 at 16:02 Approved by: Gary Marie M.D. on 12/24/2021 at 16:08
--- NOTE | 2021-12-24 17:43 | ED_ITS ---
HPI - Abdominal Pain <BYRON Villagran - Last Filed: 12/24/21 18:11> General Chief Complaint: Abdominal Pain Stated Complaint: No bowel movement x 5 days- terminal cancer pt Time Seen by Provider: 12/24/21 17:26 Source: patient and family Mode of arrival: Wheelchair History of Present Illness HPI narrative: This is a pleasant 86-year-old male who presents to the emergency department complaining of 5 days without a bowel movement, states that he feels like his abdomen is bloated and full. States that he gave himself an enema yesterday which helped relieve his impacted stool in his rectum but states that he has still not had a normal bowel movement. He has been taking MiraLax morning and night for the last 4 days, states that he has added senna to this regimen without any bowel movement. He denies any fever, worsening abdominal pain, denies any vomiting, states that he has been tolerating p.o. liquids without difficulty. Related Data Home Medications Medication Instructions Recorded Confirmed furosemide 40 mg tablet 40 mg PO QAM ##0 02/22/17 02/08/20 latanoprost 0.005 % eye drops 1 drp EYE-RIGHT BEDTIME ##0 02/22/17 02/08/20 (Xalatan) timolol maleate 0.5 % eye drops 1 drp EYE-BOTH BID ##0 02/22/17 02/08/20 aspirin 81 mg tablet,delayed 81 mg PO BEDTIME 02/25/18 02/08/20 release (Aspir-) finasteride 5 mg tablet 5 mg PO BEDTIME 02/25/18 02/08/20 potassium chloride 10 mEq 10 meq PO DAILY 02/25/18 02/08/20 capsule,extended release simvastatin 40 mg tablet 40 mg PO BEDTIME 02/25/18 02/08/20 tiotropium bromide 18 mcg capsule 1 cap inhalation DAILY 04/21/18 02/08/20 with inhalation device (Spiriva with HandiHaler) hydrocodone-acetaminophen [[place]] PO 10/09/19 02/08/20 losartan 100 mg tablet mg PO DAILY 10/09/19 02/08/20 zolpidem 10 mg tablet mg PO 10/09/19 02/08/20 Previous Rx's Medication Instructions Recorded diclofenac sodium 1 % topical gel 2 g topical QID arthritis pain 03/09/19 #100 grams gabapentin 300 mg capsule 900 mg PO TID neuropathic pain 03/09/19 #200 caps tramadol 50 mg tablet 50 mg PO BID PRN pain #60 tabs 04/18/20 bisacodyl 10 mg rectal suppository 10 mg NE DAILY PRN constipation 12/24/21 #12 ea magnesium citrate 150 ml PO BID PRN constipation 12/24/21 #296 mL Allergies Allergy/AdvReac Type Severity Reaction Status Date / Time No Known Drug Allergies Allergy Verified 08/05/20 12:36 Review of Systems <BYRON Villagran - Last Filed: 12/24/21 18:11> Review of Systems Narrative: Review of systems is negative for acute abnormalities unless otherwise noted in HPI Patient History <BYRON Villagran - Last Filed: 12/24/21 18:11> Medical History Acute on chronic diastolic congestive heart failure Amputation of finger, left Arthritis Back pain Bleeds easily Carotid artery disease Cervical arthritis Chronic diastolic congestive heart failure COPD (chronic obstructive pulmonary disease) Dyslipidemia Easy bruisability Enlarged prostate Graves' eye disease Hearing impaired Herniated nucleus pulposus, L2-3 Left shoulder pain Mitral valve regurgitation Occlusion of left internal carotid artery Peripheral arterial disease Rash Rheumatoid arthritis Rheumatoid arthritis involving both hands Shingles Thoracic spinal stenosis Surgical History H/O cardiac catheterization (~2003) History of right cataract extraction History of thoracic spinal fusion Hx of tonsillectomy S/P aortic valve replacement with bioprosthetic valve (~2003) Social History household members: spouse Smoking Status: Former smoker alcohol intake: current Smoking Status: Former smoker alcohol intake frequency: 3 or more drinks per day Alcohol type: wine Substance Use Type: does not use Exam <BYRON Villagran - Last Filed: 12/24/21 18:11> Narrative Exam Narrative: Reviewed vitals signs and nursing notes. General: cooperative, comfortable, in no acute distress, well groomed, frail, elderly, pleasant HEENT: symmetrical facial expressions, moist mucous membranes Cardiovascular: regular rate and rhythm, no peripheral edema, warm extremities Respiratory: normal effort, able to speak in complete sentences, without wheezing, stridor, or abnormal breath sounds. No retractions or tachypnea. GI: abdomen soft, nontender to palpation, nondistended, without masses, rebound tenderness or exquisite tenderness with exam. MSK: moves all extremities, neurovascularly intact, no weakness, normal tone Skin: brisk capillary refill, without pallor or erythema Neuro: normal speech and cognition, A&O x3, ambulatory, clear speech Psych: mental status is grossly normal, congruent mood, normal affect, pleasant and cooperative Initial Vital Signs Initial Vital Signs: Vital Signs Temperature 97.5 F L 12/24/21 14:56 Pulse Rate 86 12/24/21 14:56 Respiratory Rate 24 12/24/21 14:56 Blood Pressure 106/51 L 12/24/21 14:56 Pulse Oximetry 96 12/24/21 14:56 Oxygen Delivery Method 12/24/21 14:56 <Amy Cummins MD - Last Filed: 12/25/21 05:12> Initial Vital Signs Initial Vital Signs: Vital Signs Temperature 97.5 F L 12/24/21 14:56 Pulse Rate 86 12/24/21 14:56 Respiratory Rate 24 12/24/21 14:56 Blood Pressure 106/51 L 12/24/21 14:56 Pulse Oximetry 96 12/24/21 14:56 Oxygen Delivery Method 12/24/21 14:56 Course <BYRON Villagran - Last Filed: 12/24/21 18:11> Orders Ordered: Discontinued Medications Bisacodyl (Bisacodyl 10 Mg Supp) 10 mg NE NOW ONE Stop: 12/24/21 17:35 Last Admin: 12/24/21 17:45 Dose: 10 mg Documented By: MARIA TERESA Lactulose (Lactulose 20 Gm/30 Ml Solution) 20 gm PO NOW ONE Stop: 12/24/21 17:42 Last Admin: 12/24/21 17:52 Dose: 20 gm Documented By: MARIA TERESA Magnesium Citrate (Magnesium Citrate 300 Ml Solution) 150 ml PO NOW ONE Stop: 12/24/21 17:38 Last Admin: 12/24/21 17:53 Dose: Not Given Documented By: MARIA TERESA Vital Signs Vital signs: Vital Signs - 8 hr 12/24/21 14:56 Temperature 97.5 F L Pulse Rate 86 Respiratory Rate 24 Blood Pressure 106/51 L Pulse Oximetry 96 Oxygen Delivery Method Room Air <Amy Cummins MD - Last Filed: 12/25/21 05:12> Orders Ordered: Discontinued Medications Bisacodyl (Bisacodyl 10 Mg Supp) 10 mg NE NOW ONE Stop: 12/24/21 17:35 Last Admin: 12/24/21 17:45 Dose: 10 mg Documented By: MARIA TERESA Lactulose (Lactulose 20 Gm/30 Ml Solution) 20 gm PO NOW ONE Stop: 12/24/21 17:42 Last Admin: 12/24/21 17:52 Dose: 20 gm Documented By: MARIA TERESA Magnesium Citrate (Magnesium Citrate 300 Ml Solution) 150 ml PO NOW ONE Stop: 12/24/21 17:38 Last Admin: 12/24/21 17:53 Dose: Not Given Documented By: MARIA TERESA Vital Signs Vital signs: Vital Signs - 8 hr 12/24/21 14:56 Temperature 97.5 F L Pulse Rate 86 Respiratory Rate 24 Blood Pressure 106/51 L Pulse Oximetry 96 Oxygen Delivery Method Room Air [facility] - Abdominal Pain <BYRON Villagran - Last Filed: 12/24/21 18:11> Imaging Data Abdominal x-ray: Radiologist's Impression: PROCEDURE:? XR ACUTE ABDOMEN SERIES ? INDICATIONS:? constipation ? TECHNIQUE:? One view chest and two views of the abdomen were acquired.? ? COMPARISON:? None. ? FINDINGS:? ? Surgical changes and devices:? Median sternotomy wires are seen.? Prosthetic heart valve is noted.? Fusion hardware in lower is seen at T11-12 level. ? Chest:? Lungs are clear.? Heart size is normal.? No pleural effusions.? No pneumoperitoneum.? ? Abdomen:? Bowel gas pattern is normal.? No suspicious calcifications.? Visualized solid organ contours appear normal.? ? Bones:? No suspicious bony lesions.? ? IMPRESSION:? No evidence of bowel obstruction or gross free air.? No significant fecal burden.? No acute cardiopulmonary pathology. ? ? Dictated by: Gary Marie M.D. on 12/24/2021 at 16:02 ? ? Approved by: Gayr Marie M.D. on 12/24/2021 at 16:08 ? MDM Narrative Medical decision making narrative: This is an 86-year-old male with a history of valvular cardiac disease, COPD who presents to the emergency department complaining of no bowel movement for the last 5 days, states that he took a Fleet's enema yesterday, has been taking MiraLax b.i.d. for the last few days, is on some additionally. In the emergency department today x-ray does not show any signs of bowel obstruction, he relieved the rectal impaction himself yesterday with enema, he is afebrile without any exquisite pain or vomiting. No abdominal tenderness on exam. He was prescribed magnesium citrate but unfortunately it is on national back order and the emergency department does not have any, I daycare him a bisacodyl suppository, I prescribed for him magnesium citrate to picker feeder at [facility] if they have it, and I have given 20 mg of lactulose. Patient understands to return to the emergency department tomorrow if he has any worsening pain, no success with his medications at home, he was also prescribed suppositories and understands how to use his medications. Discussed this plan with his who also has this information. I encouraged him to stay hydrated and to follow-up with his regular doctor if this is recurring. No peritoneal signs on abdominal exam. Patient remains p.o. tolerant. Serial abdominal exam without increase in abdominal pain. Given history and exam, low suspicion for acute abdominal process, such as acute cholecystitis, pancreatitis, perforated viscus, atypical appendicitis, colitis, diverticulitis or torsion. Extensive conversation about ER return precautions and need for close follow-up. Patient is appropriate and amenable to discharge home. Vital signs are stable on repeat examination is unremarkable. Patient has been informed of results. Patient has been given strict return to ER precautions for any new or worsening symptoms. Patient understands to follow up closely with outpatient providers as instructed. Patient understands plan and agrees to discharge home. All questions and con cerns answered at this time. Discharge Plan Departure Patient Disposition: Home Clinical Impression: Constipation Qualifiers: Constipation type: slow transit constipation Qualified Code(s): K59.01 - Slow transit constipation Clinical Impression: (Ruled Out): Spondylosis of lumbosacral region Instructions: Constipation Activity Restrictions/Additional Instructions: *You have been diagnosed with constipation without a bowel obstruction. Please hydrated, continue taking MiraLax morning and night until you have regular soft stools and continue this. Please use a suppository at night to help soften impacted stool at the rectum and make it easier to pass. Please try half of this magnesium citrate and then follow it by the rest the medication tomorrow morning if you have not had a bowel movement. Please co ntinue taking your senna and other medications and this will hopefully find its way out. Please come back tomorrow if you feel ill or if you have not had a bowel movement. Thank you for your time, I am sorry for the long wait today, I wish you the best. If you have any rectal pain with bowel movements, please check your stool for blood and return to the emergency department tomorrow. *What to do: *Please continue to take your regular medications as directed. [ x] New medication prescriptions sent to your pharmacy: [[facility] ] [ ] New medication written as a paper prescription [ ] No new medications given *Please follow up with your primary care provider in 2-3 days, call for an appointment. Let them know you were seen in the Emergency Department and that we asked that you be seen for follow-up. We will electronically transmit a record of today's note if your PCP is in our system *If you do not have a primary care provider please contact [phone] to establish care with one of the [facility] primary care providers. *Return to Emergency Department if you should have any new, worsening, or concerning symptoms, such as [fever greater than 101F, chills, worsening pain, persistent vomiting or other bothersome symptoms]. Prescriptions: New magnesium citrate Solution 150 ml PO BID PRN (Reason: constipation) Qty: 296 0RF bisacodyl 10 mg suppository 10 mg NE DAILY PRN (Reason: constipation) Qty: 12 0RF No Action latanoprost [Xalatan] 0.005 % drops 1 drp EYE-RIGHT BEDTIME Qty: 0 timolol maleate 0.5 % drops 1 drp EYE-BOTH BID Qty: 0 furosemide 40 MG tablet 40 mg PO QAM Qty: 0 tramadol 50 mg tablet 50 mg PO BID PRN (Reason: pain) Qty: 60 1RF Spiriva with HandiHaler 18 mcg Capsule, W/Inhalation Device 1 cap INHALATION DAILY potassium chloride 10 mEq capsule, extended release 10 meq PO DAILY simvastatin 40 mg tablet 40 mg PO BEDTIME aspirin [Aspir-81] 81 mg tablet,delayed release (DR/EC) 81 mg PO BEDTIME finasteride 5 mg tablet 5 mg PO BEDTIME diclofenac sodium 1 % gel 2 g TOP QID MDD 8 gm Qty: 100 5RF Rx Instructions: apply to low back gabapentin 300 mg capsule 900 mg PO TID Qty: 200 5RF zolpidem 10 mg tablet PO losartan 100 mg tablet PO DAILY hydrocodone-acetaminophen PO Referrals: Alberto Jones MD [Primary Care Provider] - Visit Report Forms: Patient Portal/API <Amy Cummins MD - Last Filed: 12/25/21 05:12> Cosign ED Attending Cosignature Attestation: I was immediately available in the department for consultation throughout this patient's visit. I agree with documentation as above. Amy Cummins MD
[2021-12-24] MEDS: BISACODYL 10 MG SUPP PR (17:45)
[2021-12-24] MEDS: LACTULOSE 20 GM/30 ML SOLUTION PO (17:52)
== END 2021-12-24 17:59 | disposition home or self-care (01) ==
PROVIDERS: Emergency Provider Nurse Practitioner Critical Care Medicine; PCP Internal Medicine
DX: K59.01 Slow transit constipation (principal)
CPT/HCPCS: 74022; 99283; 99284

== ENCOUNTER 2021-12-27 09:41 | Emergency (ER) | payer OTHER, SELFPAY ==
[2020-02-08 16:11] VITALS: BMI 25.1
[2021-12-27 09:44] VITALS: BP 120/57; PULSE 70; RESP 18; TEMP 36.2; O2SAT 98; BMI 21.4
--- NOTE | 2021-12-27 10:10 | DI.CT.S_ITS ---
PROCEDURE: CT ABDOMEN PELVIS W CON INDICATIONS: Abdominal pain, 8 days no bowel movement TECHNIQUE: After the administration of intravenous contrast, axial sections acquired from the lung bases to the pubic symphysis. Coronal and sagittal reformats were performed. For radiation dose reduction, the following was used: automated exposure control, adjustment of mA and/or kV according to patient size. COMPARISON: None. FINDINGS: Lower thorax: The lung bases are clear. Heart size normal. No hiatal hernia. Liver: Normal in size and attenuation. No contour deformity present. Biliary system: No calcified cholelithiasis or pericholecystic inflammation. No intra or extrahepatic bile duct dilatation. Pancreas: Unremarkable without mass or inflammation evident. Spleen: Normal in size and density. Adrenals: Normal morphology and density. Reproductive system: Prostatic hypertrophy elevates the bladder floor. Urinary system: Normal renal size and attenuation. No renal calculi, hydronephrosis, or solid mass present. Mild wall thickening the urinary bladder. Gastrointestinal system: Mild to moderate fecal debris the right colon. No bowel obstruction. Appendix: No findings to suggest acute appendicitis. Peritoneal spaces: No mesenteric or retroperitoneal adenopathy. No free air. No free fluid. Vasculature: The IVC, aorta and iliac vasculature are unremarkable. Abdominal wall: Abdominal wall intact without evidence of ventral or inguinal hernias. Musculoskeletal: Normal bone mineralization. Degenerative disc disease and arthropathy noted in lower lumbar spine. Decompressive laminectomy and instrumentation at the thoracolumbar junction. No acute fractures. IMPRESSION: 1. Mild to moderate fecal debris in the right colon. No bowel obstruction. 2. Prostatic hypertrophy and bladder wall thickening may reflect chronic bladder outlet obstruction Approved by: Maik Corral M.D. on 12/27/2021 at 10:55
[2021-12-27 10:40] LABS: Add Manual Diff / Slide Review NO; Basophils Absolute Auto 100 /uL (0-100); Basophils Percent Auto 0.8 % (0-2); Eosinophils Absolute Auto 600 /uL (0-450); Eosinophils Percent Auto 6.9 % (2-4); Hematocrit 28.3 % (41-53); Hemoglobin 9.2 g/dL (13.5-17.5); Lymphocytes Absolute Auto 800 /uL (1100-4500); Lymphocytes Percent Auto 8.8 % (25-40); Mean Corpuscular HGB Conc 32.5 % (30-36); Mean Corpuscular Hemoglobin 28.7 PG (26-34); Mean Corpuscular Volume 88.4 fL (80-100); Monocytes Absolute Auto 1100 /uL (0-900); Monocytes Percent Auto 11.8 % (3-14); Neutrophils Absolute Auto 6600 /uL (1500-7000); Neutrophils Percent Auto 71.7 % (50-75); Platelet Count 458 X10^3/uL (150-400); Red Cell Distribution Width 16.5 % (11.6-14.8); White Blood Cell Count 9.2 X10^3/uL (4.5-11.0)
[2021-12-27 10:53] LABS: Alanine Aminotransferase 14 IU/L (<50); Albumin 3.9 g/dL (3.5-5.0); Alkaline Phosphatase 68 U/L (38-126); Aspartate Aminotransferase 24 IU/L (17-59); BUN Creatinine Ratio 23.7 (6-22); Bilirubin Total 0.3 mg/dL (0.2-1.3); Blood Urea Nitrogen 22 mg/dL (9-20); Calcium 9.6 mg/dL (8.4-10.2); Carbon Dioxide 25 mmol/L (22-32); Chloride 102 mmol/L (98-107); Estimated Glomerular Filt Rate > 60 mL/min (>60); Globulin 3.8 g/dL (1.7-4.1); Glucose 117 mg/dL (80-110); HEMOLYSIS 17 (0-50); Lipase 85 U/L (23-300); Potassium 4.4 mmol/L (3.4-5.1); Sodium 139 mmol/L (137-145); Total Protein 7.7 g/dL (6.3-8.2)
[2021-12-27 14:13] VITALS: BP 110/56; O2SAT 97
[2021-12-27 14:30] VITALS: BP 114/56; PULSE 84; RESP 25; O2SAT 100
--- NOTE | 2021-12-27 15:15 | ED_ITS ---
HPI - Abdominal Pain <Perfecto Courtney PA-C - Last Filed: 12/27/21 15:34> General Chief Complaint: Abdominal Pain Stated Complaint: blocked bowel here on Wednesday Time Seen by Provider: 12/27/21 10:07 Source: patient Mode of arrival: Ambulatory History of Present Illness HPI narrative: Patient is a 86-year-old male who presents to the emergency room today with complaint of continued abdominal pain secondary to constipation. Upon interviewing the patient he states that he actually had a bowel movement here in the emergency room for small amount of stool. Denies any blood in his stool chest pain shortness of breath fever chills nausea vomiting. Also states that he takes MiraLax and senna at home to help with his bowel movements. States he feels better and his is waiting for him to be discharged. Patient also stated by the way that he has lung cancer that was diagnosed in August of 2021 just trying to be comfortable until the expires. Denies any other concerns Related Data Home Medications Medication Instructions Recorded Confirmed furosemide 40 mg tablet 40 mg PO QAM ##0 02/22/17 02/08/20 latanoprost 0.005 % eye drops 1 drp EYE-RIGHT BEDTIME ##0 02/22/17 02/08/20 (Xalatan) timolol maleate 0.5 % eye drops 1 drp EYE-BOTH BID ##0 02/22/17 02/08/20 aspirin 81 mg tablet,delayed 81 mg PO BEDTIME 02/25/18 02/08/20 release (Aspir-) finasteride 5 mg tablet 5 mg PO BEDTIME 02/25/18 02/08/20 potassium chloride 10 mEq 10 meq PO DAILY 02/25/18 02/08/20 capsule,extended release simvastatin 40 mg tablet 40 mg PO BEDTIME 02/25/18 02/08/20 tiotropium bromide 18 mcg capsule 1 cap inhalation DAILY 04/21/18 02/08/20 with inhalation device (Spiriva with HandiHaler) hydrocodone-acetaminophen [[place]] PO 10/09/19 02/08/20 losartan 100 mg tablet mg PO DAILY 10/09/19 02/08/20 zolpidem 10 mg tablet mg PO 10/09/19 02/08/20 Previous Rx's Medication Instructions Recorded diclofenac sodium 1 % topical gel 2 g topical QID arthritis pain 03/09/19 #100 grams gabapentin 300 mg capsule 900 mg PO TID neuropathic pain 03/09/19 #200 caps tramadol 50 mg tablet 50 mg PO BID PRN pain #60 tabs 04/18/20 bisacodyl 10 mg rectal suppository [address] DAILY PRN constipation 12/24/21 #12 ea magnesium citrate 150 ml PO BID PRN constipation 12/24/21 #296 mL Allergies Allergy/AdvReac Type Severity Reaction Status Date / Time No Known Drug Allergies Allergy Verified 08/05/20 12:36 Review of Systems <Perfecto Courtney PA-C - Last Filed: 12/27/21 15:34> Review of Systems Narrative: R.O.S.: General: No fever, chills or fatigue. Cardiovascular: No chest pain or palpitations Respiratory: No S.O.B. HEENT: No congestion, ear pain, rhinorrhea, sore throat or tinnitus Gastrointestinal: Constipation that is resolving : No urinary concerns Skin: No rash or associated abnormalities Musculoskeletal: No pain in muscles or joints, no limitation of range of motion, no paresthesia or numbness. ?? Neurological: Awake, alert and in not apparent distress. No Headaches, changes in vision or other related neurological concerns. Patient History <Perfecto Courtney PA-C - Last Filed: 12/27/21 15:34> Medical History (Updated 12/27/21 @ 15:26 by Perfecto Courtney PA-C) Acute on chronic diastolic congestive heart failure Amputation of finger, left Arthritis Back pain Bleeds easily Carotid artery disease Cervical arthritis Chronic diastolic congestive heart failure COPD (chronic obstructive pulmonary disease) Dyslipidemia Easy bruisability Enlarged prostate Graves' eye disease Hearing impaired Herniated nucleus pulposus, L2-3 Left shoulder pain Mitral valve regurgitation Occlusion of left internal carotid artery Peripheral arterial disease Rash Rheumatoid arthritis Rheumatoid arthritis involving both hands Shingles Thoracic spinal stenosis Surgical History H/O cardiac catheterization (~2003) History of right cataract extraction History of thoracic spinal fusion Hx of tonsillectomy S/P aortic valve replacement with bioprosthetic valve (~2003) Social History household members: spouse Smoking Status: Former smoker alcohol intake: current Smoking Status: Former smoker alcohol intake frequency: 3 or more drinks per day Alcohol type: wine Substance Use Type: does not use Exam <Perfecto Courtney PA-C - Last Filed: 12/27/21 15:34> Narrative Exam Narrative: Patient declines physical exam at this time stated he wants to be discharged. Initial Vital Signs Initial Vital Signs: Vital Signs Temperature 97.1 F L 12/27/21 09:44 Pulse Rate 70 12/27/21 09:44 Respiratory Rate 18 12/27/21 09:44 Blood Pressure 120/57 L 12/27/21 09:44 Pulse Oximetry 98 12/27/21 09:44 Oxygen Delivery Method 12/27/21 09:44 <Amy Cummins MD - Last Filed: 12/28/21 07:21> Initial Vital Signs Initial Vital Signs: Vital Signs Temperature 97.1 F L 12/27/21 09:44 Pulse Rate 70 12/27/21 09:44 Respiratory Rate 18 12/27/21 09:44 Blood Pressure 120/57 L 12/27/21 09:44 Pulse Oximetry 98 12/27/21 09:44 Oxygen Delivery Method 12/27/21 09:44 Course <Perfecto Courtney PA-C - Last Filed: 12/27/21 15:34> Orders Ordered: ED Orders 12/27/21 09:58 EKG-12 Lead Stat 12/27/21 10:02 Complete Blood Count AUTO DIFF Stat Comprehensive Metabolic Panel Stat Lipase Stat 12/27/21 10:10 CT abdomen pelvis w con Stat Vital Signs Vital signs: Vital Signs - 8 hr 12/27/21 09:44 12/27/21 14:13 12/27/21 14:13 Temperature 97.1 F L Pulse Rate 70 Respiratory Rate 18 Blood Pressure 120/57 L 110/56 L Pulse Oximetry 98 97 Oxygen Delivery Method Room Air <Amy Cummins MD - Last Filed: 12/28/21 07:21> Orders Ordered: ED Orders 12/27/21 09:58 EKG-12 Lead Stat 12/27/21 10:02 Complete Blood Count AUTO DIFF Stat Comprehensive Metabolic Panel Stat Lipase Stat 12/27/21 10:10 CT abdomen pelvis w con Stat Vital Signs Vital signs: Vital Signs - 8 hr 12/27/21 09:44 12/27/21 14:13 12/27/21 14:13 Temperature 97.1 F L Pulse Rate 70 Respiratory Rate 18 Blood Pressure 120/57 L 110/56 L Pulse Oximetry 98 97 Oxygen Delivery Method Room Air MDM - Abdominal Pain <Perfecto Courtney PA-C - Last Filed: 12/27/21 15:34> Lab Data Result diagrams: 12/27/21 10:02 12/27/21 10:02 Labs: Lab Results 12/27/21 12/27/21 Range/Units 10:02 10:02 WBC 9.2 (4.5-11.0) X10^3/uL RBC 3.20 L (4.5-5.9) X10^6/uL Hgb 9.2 L (13.5-17.5) g/dL Hct 28.3 L (41-53) % MCV 88.4 (80-100) fL MCH 28.7 (26-34) PG MCHC 32.5 (30-36) % RDW 16.5 H (11.6-14.8) % Plt Count 458 H (150-400) X10^3/uL Neut % (Auto) 71.7 (50-75) % Lymph % (Auto) 8.8 L (25-40) % [place] % (Auto) 11.8 (3-14) % Eos % (Auto) 6.9 H (2-4) % Baso % (Auto) 0.8 (0-2) % Neut # (Auto) 6600 (9933-8511) /uL Lymph # (Auto) 800 L (9989-1350) /uL [place] # (Auto) 1100 H (0-900) /uL Eos # (Auto) 600 H (0-450) /uL Baso # (Auto) 100 (0-100) /uL Sodium 139 (137-145) mmol/L Potassium 4.4 (3.4-5.1) mmol/L Chloride 102 (98-107) mmol/L Carbon Dioxide 25 (22-32) mmol/L BUN 22 H (9-20) mg/dL Creatinine 0.93 (0.66-1.25) mg/dL Estimated GFR > 60 (>60) mL/min BUN/Creatinine Ratio 23.7 H (6-22) Glucose 117 H (80-110) mg/dL Calcium 9.6 (8.4-10.2) mg/dL Total Bilirubin 0.3 (0.2-1.3) mg/dL AST 24 (17-59) IU/L ALT 14 (<50) IU/L Alkaline Phosphatase 68 (38-126) U/L Total Protein 7.7 (6.3-8.2) g/dL Albumin 3.9 (3.5-5.0) g/dL Globulin 3.8 (1.7-4.1) g/dL Albumin/Globulin Ratio 1.0 (1.0-2.8) Lipase 85 (23-300) U/L Imaging Data CT scan - abdomen/pelvis: Radiologist's Impression: PROCEDURE:? CT ABDOMEN PELVIS W CON ? INDICATIONS:? Abdominal pain, 8 days no bowel movement ? TECHNIQUE:? After the administration of intravenous contrast, axial sections acquired from the lung bases to the pubic symphysis.? Coronal and sagittal reformats were performed.? For radiation dose reduction, the following was used:? automated exposure control, adjustment of mA and/or kV according to patient size.? ? COMPARISON:? None. ? FINDINGS: ? Lower thorax: The lung bases are clear.? Heart size normal.? No hiatal hernia. ? Liver:? Normal in size and attenuation. No contour deformity present. ? Biliary system:? No calcified cholelithiasis or pericholecystic inflammation.? No intra or extrahepatic bile duct dilatation. ? Pancreas:? Unremarkable without mass or inflammation evident. ? Spleen:? Normal in size and density. ? Adrenals:? Normal morphology and density. ? Reproductive system:? Prostatic hypertrophy elevates the bladder floor.? ? Urinary system:? Normal renal size and attenuation. No renal calculi, hydronephrosis, or solid mass present.? Mild wall thickening the urinary bladder. ? Gastrointestinal system:? Mild to moderate fecal debris the right colon.? No bowel obstruction. ? Appendix:? No findings to suggest acute appendicitis. ? Peritoneal spaces:? No mesenteric or retroperitoneal adenopathy.? No free air.? No free fluid.? ? Vasculature:? The IVC, aorta and iliac vasculature are unremarkable. ? Abdominal wall:? Abdominal wall intact without evidence of ventral or inguinal hernias. ? Musculoskeletal:? Normal bone mineralization.? Degenerative disc disease and arthropathy noted in lower lumbar spine.? Decompressive laminectomy and instrumentation at the thoracolumbar junction.? No acute fractures.? ? IMPRESSION: ? 1. Mild to moderate fecal debris in the right colon.? No bowel obstruction. ? 2. Prostatic hypertrophy and bladder wall thickening may reflect chronic bladder outlet obstruction ? Approved by: Maik Corral M.D. on 12/27/2021 at 10:55? MDM Narrative Medical decision making narrative: Patient is an 86-year-old male who presents emergency room today with complaint of resolving constipation. Patient also administer history of lung cancer that was diagnosed in August of this year. CT scan of the abdomen and pelvis had an impression of mild to moderate fecal debris in the right colon without bowel obstruction. It also had an impression of prostatic hypertrophy and bladder wall thickening that may reflect chronic bladder outlet obstruction. Patient states his was waiting for him he wanted to be discharged. Patient was informed of this and advised to follow with primary care provider in regards to these chronic concerns. <Amy Cummins MD - Last Filed: 12/28/21 07:21> Lab Data Labs: Lab Results 12/27/21 12/27/21 Range/Units 10:02 10:02 WBC 9.2 (4.5-11.0) X10^3/uL RBC 3.20 L (4.5-5.9) X10^6/uL Hgb 9.2 L (13.5-17.5) g/dL Hct 28.3 L (41-53) % MCV 88.4 (80-100) fL MCH 28.7 (26-34) PG MCHC 32.5 (30-36) % RDW 16.5 H (11.6-14.8) % Plt Count 458 H (150-400) X10^3/uL Neut % (Auto) 71.7 (50-75) % Lymph % (Auto) 8.8 L (25-40) % [place] % (Auto) 11.8 (3-14) % Eos % (Auto) 6.9 H (2-4) % Baso % (Auto) 0.8 (0-2) % Neut # (Auto) 6600 (0139-5093) /uL Lymph # (Auto) 800 L (2544-2448) /uL [place] # (Auto) 1100 H (0-900) /uL Eos # (Auto) 600 H (0-450) /uL Baso # (Auto) 100 (0-100) /uL Sodium 139 (137-145) mmol/L Potassium 4.4 (3.4-5.1) mmol/L Chloride 102 (98-107) mmol/L Carbon Dioxide 25 (22-32) mmol/L BUN 22 H (9-20) mg/dL Creatinine 0.93 (0.66-1.25) mg/dL Estimated GFR > 60 (>60) mL/min BUN/Creatinine Ratio 23.7 H (6-22) Glucose 117 H (80-110) mg/dL Calcium 9.6 (8.4-10.2) mg/dL Total Bilirubin 0.3 (0.2-1.3) mg/dL AST 24 (17-59) IU/L ALT 14 (<50) IU/L Alkaline Phosphatase 68 (38-126) U/L Total Protein 7.7 (6.3-8.2) g/dL Albumin 3.9 (3.5-5.0) g/dL Globulin 3.8 (1.7-4.1) g/dL Albumin/Globulin Ratio 1.0 (1.0-2.8) Lipase 85 (23-300) U/L Discharge Plan Departure Patient Disposition: Home Clinical Impression: Constipation Instructions: DI for Constipation Activity Restrictions/Additional Instructions: *You have been diagnosed with resolving constipation. As you stated you had a partial bowel movement here in the emergency room suggest you continue taking MiraLax and Senna at home for your constipation. I also advised him to return to the emergency room should any emergent concerns arise. [ ] *What to do: *Please continue to take your regular medications as directed. [ ] New medication prescriptions sent to your pharmacy: [ ] [ ] New medication written as a paper prescription [x] No new medications given *Please follow up with your primary care provider in 2-3 days, call for an appointment. Let them know you were seen in the Emergency Department and that we ask that you be seen in follow up. We will electronically transmit a record of today's note if your PCP is in our system *If you do not have a primary care provider please contact the [facility] Resource line at [phone]. They will ask some questions about your medical history and help get you set up with a doctor in the community. *Return to Emergency Department if you should have any new, worsening or concerning symptoms, such as [fever greater than 101 F, shaking chills, wor sening pain, persistent vomiting or other bothersome symptoms] Prescriptions: No Action latanoprost [[place]] 0.005 % drops 1 drp EYE-RIGHT BEDTIME Qty: 0 timolol maleate 0.5 % drops 1 drp EYE-BOTH BID Qty: 0 furosemide 40 MG tablet 40 mg PO QAM Qty: 0 tramadol 50 mg tablet 50 mg PO BID PRN (Reason: pain) Qty: 60 1RF Spiriva with HandiHaler 18 mcg Capsule, W/Inhalation Device 1 cap INHALATION DAILY magnesium citrate Solution 150 ml PO BID PRN (Reason: constipation) Qty: 296 0RF bisacodyl 10 mg suppository [address] DAILY PRN (Reason: constipation) Qty: 12 0RF potassium chloride 10 mEq capsule, extended release 10 meq PO DAILY simvastatin 40 mg tablet 40 mg PO BEDTIME aspirin [Aspir-81] 81 mg tablet,delayed release (DR/EC) 81 mg PO BEDTIME finasteride 5 mg tablet 5 mg PO BEDTIME diclofenac sodium 1 % gel 2 g TOP QID MDD 8 gm Qty: 100 5RF Rx Instructions: apply to low back gabapentin 300 mg capsule 900 mg PO TID Qty: 200 5RF zolpidem 10 mg tablet PO losartan 100 mg tablet PO DAILY hydrocodone-acetaminophen PO Referrals: Alberto Jones MD [Primary Care Provider] - Visit Report Forms: Patient Portal/API <Amy Cummins MD - Last Filed: 12/28/21 07:21> [facility]: I was immediately available in the department for consultation throughout this patient's visit. I agree with documentation as above. Amy Cummins MD
[2021-12-27 15:27] VITALS: BP 127/60; PULSE 76; O2SAT 96
== END 2021-12-27 15:29 | disposition home or self-care (01) ==
PROVIDERS: Emergency Medicine; Emergency Provider Physician Assistant; PCP Internal Medicine
DX: K59.00 Constipation, unspecified (principal); R10.9 Unspecified abdominal pain
CPT/HCPCS: 36415; 74177; 80053; 83690; 85025; 93005; 99283; 99284; Q9967

== ENCOUNTER 2022-02-06 11:01 | Emergency (ER) | payer OTHER, SELFPAY ==
[2020-02-08 16:11] VITALS: BMI 25.1
--- NOTE | 2022-02-06 11:18 | ED.GENADULT ---
HPI - General Adult General Chief complaint: Shortness of Breath/Dyspnea Stated complaint: xtry of lung cancer spitting up blood Time Seen by Provider: 02/06/22 11:07 History of Present Illness HPI narrative: 86-year-old gentleman with a history of lung cancer diagnosed earlier this year and on initial diagnosis was told that there were no options for treatment. He has come to terms with this. He is followed by Dr. Bear. He comes in today complaining of hemoptysis. He had a single episode about 5 days ago and larger episode today. Both have been self-limited. With this he has not had significant dyspnea or pain. He does have home oxygen available should he choose to use it. When asked what he would most prefer from this emergency room visit, his request with simply to go home. He notes that he has had some issues with constipation but no fevers, myalgias. He does have exertional dyspnea for which the home oxygen can be somewhat helpful. Related Data Home Medications Medication Instructions Recorded Confirmed furosemide 40 mg tablet 40 mg PO QAM ##0 02/22/17 02/08/20 latanoprost 0.005 % eye drops 1 drp EYE-RIGHT BEDTIME ##0 02/22/17 02/08/20 (Xalatan) timolol maleate 0.5 % eye drops 1 drp EYE-BOTH BID ##0 02/22/17 02/08/20 aspirin 81 mg tablet,delayed 81 mg PO BEDTIME 02/25/18 02/08/20 release (Aspir-) finasteride 5 mg tablet 5 mg PO BEDTIME 02/25/18 02/08/20 potassium chloride 10 mEq 10 meq PO DAILY 02/25/18 02/08/20 capsule,extended release simvastatin 40 mg tablet 40 mg PO BEDTIME 02/25/18 02/08/20 tiotropium bromide 18 mcg capsule 1 cap inhalation DAILY 04/21/18 02/08/20 with inhalation device (Spiriva with HandiHaler) hydrocodone-acetaminophen [[place]] PO 10/09/19 02/08/20 losartan 100 mg tablet mg PO DAILY 10/09/19 02/08/20 zolpidem 10 mg tablet mg PO 10/09/19 02/08/20 Previous Rx's Medication Instructions Recorded diclofenac sodium 1 % topical gel 2 g topical QID arthritis pain 03/09/19 #100 grams gabapentin 300 mg capsule 900 mg PO TID neuropathic pain 03/09/19 #200 caps tramadol 50 mg tablet 50 mg PO BID PRN pain #60 tabs 04/18/20 bisacodyl 10 mg rectal suppository 10 mg [place] DAILY PRN constipation 12/24/21 #12 ea magnesium citrate 150 ml PO BID PRN constipation 12/24/21 #296 mL Allergies Allergy/AdvReac Type Severity Reaction Status Date / Time No Known Drug Allergies Allergy Verified 08/05/20 12:36 Review of Systems Review of Systems Narrative: Remainder of complete review of systems is otherwise unremarkable except for that included in the HPI. Patient History Medical History Acute on chronic diastolic congestive heart failure Amputation of finger, left Arthritis Back pain Bleeds easily Carotid artery disease Cervical arthritis Chronic diastolic congestive heart failure COPD (chronic obstructive pulmonary disease) Dyslipidemia Easy bruisability Enlarged prostate Graves' eye disease Hearing impaired Herniated nucleus pulposus, L2-3 Left shoulder pain Mitral valve regurgitation Occlusion of left internal carotid artery Peripheral arterial disease Rash Rheumatoid arthritis Rheumatoid arthritis involving both hands Shingles Thoracic spinal stenosis Surgical History H/O cardiac catheterization (~2003) History of right cataract extraction History of thoracic spinal fusion Hx of tonsillectomy S/P aortic valve replacement with bioprosthetic valve (~2003) Social History household members: spouse Smoking Status: Former smoker alcohol intake: current Smoking Status: Former smoker alcohol intake frequency: 3 or more drinks per day Alcohol type: wine Substance Use Type: does not use Exam Initial Vital Signs Initial Vital Signs: Vital Signs Temperature 97.8 F 02/06/22 11:35 Pulse Rate 73 02/06/22 11:35 Respiratory Rate 18 02/06/22 11:35 Blood Pressure 119/56 L 02/06/22 11:35 Pulse Oximetry 99 02/06/22 11:35 Oxygen Delivery Method 02/06/22 11:35 General: Thin, in no acute distress. Able to give a complete and coherent history. HEENT: Moist mucous membranes, normal sclera with reactive pupils, voice is hoarse Neck: No JVD, supple Respiratory: Lungs with minor scattered wheezing in all lung castro. Full and symmetrical air movement Cardiac: Regular rate and rhythm no murmurs no bruits Abdomen: Soft, nontender, good bowel tones, no flank pain Skin: Warm and dry, no rashes Neurologic: Grossly neurologically intact with no obvious asymmetries or abnormalities Extremities: No trauma, well perfused, no lower extremity edema Psych: Cooperative, appropriate insight and affect Course Vital Signs Vital signs: Vital Signs - 8 hr 02/06/22 11:35 Temperature 97.8 F Pulse Rate 73 Respiratory Rate 18 Blood Pressure 119/56 L Pulse Oximetry 99 Oxygen Delivery Method Room Air Medical Decision Making MDM Narrative Medical decision making narrative: 86-year-old gentleman with end-stage lung cancer with 2 episodes of self-limited hemoptysis. With shared decision making we opted to do no additional treatment or imaging studies. I did review with him the possibility that his tumor was invading into the trachea which would cause more bleeding. I also suggested that imaging studies would help further identify this and see if there would be any indication for palliative radiation. He was not interested in following this up. Along with he and his , we had a nice discussion regarding hospice. His had her 1st of lung cancer with hospice and had only fabulous things to say about their care and their help. Both were interested in talking to hospice and in discharge home. Hospice referral was initiated. No additional workup was done in the emergency department. Questions were answered and they are safe for discharge home. Discharge Plan Departure Patient Disposition: Home Clinical Impression: Hemoptysis Lung cancer Qualifiers: Laterality: unspecified laterality Instructions: DI for Hemoptysis Activity Restrictions/Additional Instructions: Thank you for coming in today I very much respect your decision to not choose to do anything at this point. I do believe it is your lung cancer that is causing a small amount of bleeding. Unfortunately, this can become more and it does not take much blood in your airways to become very problematic. If you find that you are bleeding such that you are having difficulty breathing or uncomfortable please return to the ER and we can help with the discomfort. After our discussion in the emergency department I have done a referral to hospice. They will be contacting you If you find that you are getting worse or develop any new symptoms, please feel free to return to the emergency department for further evaluation. Prescriptions: No Action latanoprost [[place]] 0.005 % drops 1 drp EYE-RIGHT BEDTIME Qty: 0 timolol maleate 0.5 % drops 1 drp EYE-BOTH BID Qty: 0 furosemide 40 MG tablet 40 mg PO QAM Qty: 0 tramadol 50 mg tablet 50 mg PO BID PRN (Reason: pain) Qty: 60 1RF Spiriva with HandiHaler 18 mcg Capsule, W/Inhalation Device 1 cap INHALATION DAILY magnesium citrate Solution 150 ml PO BID PRN (Reason: constipation) Qty: 296 0RF bisacodyl 10 mg suppository 10 mg [place] DAILY PRN (Reason: constipation) Qty: 12 0RF potassium chloride 10 mEq capsule, extended release 10 meq PO DAILY simvastatin 40 mg tablet 40 mg PO BEDTIME aspirin [Aspir-81] 81 mg tablet,delayed release (DR/EC) 81 mg PO BEDTIME finasteride 5 mg tablet 5 mg PO BEDTIME diclofenac sodium 1 % gel 2 g TOP QID MDD 8 gm Qty: 100 5RF Rx Instructions: apply to low back gabapentin 300 mg capsule 900 mg PO TID Qty: 200 5RF zolpidem 10 mg tablet PO losartan 100 mg tablet PO DAILY hydrocodone-acetaminophen PO Referrals: Alberto Jones MD [Primary Care Provider] -
[2022-02-06 11:35] VITALS: BP 119/56; PULSE 73; RESP 18; TEMP 36.6; O2SAT 99; BMI 23.2
[2022-02-06 11:44] VITALS: PULSE 79; O2SAT 98
[2022-02-06 11:45] VITALS: BP 119/56; PULSE 73; O2SAT 99
[2022-02-06 12:00] VITALS: BP 151/104; PULSE 70; O2SAT 99
--- NOTE | 2022-02-06 12:05 | ED.GENADULT ---
HPI - General Adult General Chief complaint: Shortness of Breath/Dyspnea Stated complaint: xtry of lung cancer spitting up blood Time Seen by Provider: 02/06/22 11:07 Source: patient and family Mode of arrival: Wheelchair History of Present Illness HPI narrative: 86-year-old gentleman with a history of lung cancer diagnosed almost a year ago advanced enough that he was advised that no additional treatments would be appropriate or helpful. He is hoping that he will make a to [place] this year. He is come to terms with this. He presents today complaining of hemoptysis. This has not yet been an issue. 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 About 5 days ago he had a small amount of hemoptysis in this morning he describes 5-6 table spoons with small clots. He does have oxygen available at home but does not feel like it makes much of a difference. At rest saturations are 98% with exertion they definitely decreased significantly. He is not actively fully having hemoptysis at this time and does recognize that this is progression of his lung cancer. His main request today is simply to go home. He does not want any additional workup. He describes no fevers or chills to suspect that this would be pneumonia rather than progression of his lung cancer. Related Data Home Medications Medication Instructions Recorded Confirmed furosemide 40 mg tablet 40 mg PO QAM ##0 02/22/17 02/08/20 latanoprost 0.005 % eye drops 1 drp EYE-RIGHT BEDTIME ##0 02/22/17 02/08/20 (Xalatan) timolol maleate 0.5 % eye drops 1 drp EYE-BOTH BID ##0 02/22/17 02/08/20 aspirin 81 mg tablet,delayed 81 mg PO BEDTIME 02/25/18 02/08/20 release (Aspir-) finasteride 5 mg tablet 5 mg PO BEDTIME 02/25/18 02/08/20 potassium chloride 10 mEq 10 meq PO DAILY 02/25/18 02/08/20 capsule,extended release simvastatin 40 mg tablet 40 mg PO BEDTIME 02/25/18 02/08/20 tiotropium bromide 18 mcg capsule 1 cap inhalation DAILY 04/21/18 02/08/20 with inhalation device (Spiriva with HandiHaler) hydrocodone-acetaminophen [[place]] PO 10/09/19 02/08/20 losartan 100 mg tablet mg PO DAILY 10/09/19 02/08/20 zolpidem 10 mg tablet mg PO 10/09/19 02/08/20 Previous Rx's Medication Instructions Recorded diclofenac sodium 1 % topical gel 2 g topical QID arthritis pain 03/09/19 #100 grams gabapentin 300 mg capsule 900 mg PO TID neuropathic pain 03/09/19 #200 caps tramadol 50 mg tablet 50 mg PO BID PRN pain #60 tabs 04/18/20 bisacodyl 10 mg rectal suppository 10 mg TN DAILY PRN constipation 12/24/21 #12 ea magnesium citrate 150 ml PO BID PRN constipation 12/24/21 #296 mL Allergies Allergy/AdvReac Type Severity Reaction Status Date / Time No Known Drug Allergies Allergy Verified 08/05/20 12:36 Patient History Medical History (Updated 01/11/22 @ 00:00 by ) Acute on chronic diastolic congestive heart failure Amputation of finger, left Arthritis Back pain Bleeds easily Carotid artery disease Cervical arthritis Chronic diastolic congestive heart failure COPD (chronic obstructive pulmonary disease) Dyslipidemia Easy bruisability Enlarged prostate Graves' eye disease Hearing impaired Herniated nucleus pulposus, L2-3 Left shoulder pain Mitral valve regurgitation Occlusion of left internal carotid artery Peripheral arterial disease Rash Rheumatoid arthritis Rheumatoid arthritis involving both hands Shingles Thoracic spinal stenosis Surgical History H/O cardiac catheterization (~2003) History of right cataract extraction History of thoracic spinal fusion Hx of tonsillectomy S/P aortic valve replacement with bioprosthetic valve (~2003) Social History household members: spouse Smoking Status: Former smoker alcohol intake: current Smoking Status: Former smoker alcohol intake frequency: 3 or more drinks per day Alcohol type: wine Substance Use Type: does not use Exam Initial Vital Signs Initial Vital Signs: Vital Signs Temperature 97.8 F 02/06/22 11:35 Pulse Rate 73 02/06/22 11:35 Respiratory Rate 18 02/06/22 11:35 Blood Pressure 119/56 L 02/06/22 11:35 Pulse Oximetry 99 02/06/22 11:35 Oxygen Delivery Method 02/06/22 11:35 Course Vital Signs Vital signs: Vital Signs - 8 hr 02/06/22 11:35 Temperature 97.8 F Pulse Rate 73 Respiratory Rate 18 Blood Pressure 119/56 L Pulse Oximetry 99 Oxygen Delivery Method Room Air Discharge Plan Departure Prescriptions: No Action latanoprost [Xalatan] 0.005 % drops 1 drp EYE-RIGHT BEDTIME Qty: 0 timolol maleate 0.5 % drops 1 drp EYE-BOTH BID Qty: 0 furosemide 40 MG tablet 40 mg PO QAM Qty: 0 tramadol 50 mg tablet 50 mg PO BID PRN (Reason: pain) Qty: 60 1RF Spiriva with HandiHaler 18 mcg Capsule, W/Inhalation Device 1 cap INHALATION DAILY magnesium citrate Solution 150 ml PO BID PRN (Reason: constipation) Qty: 296 0RF bisacodyl 10 mg suppository 10 mg TN DAILY PRN (Reason: constipation) Qty: 12 0RF potassium chloride 10 mEq capsule, extended release 10 meq PO DAILY simvastatin 40 mg tablet 40 mg PO BEDTIME aspirin [Aspir-81] 81 mg tablet,delayed release (DR/EC) 81 mg PO BEDTIME finasteride 5 mg tablet 5 mg PO BEDTIME diclofenac sodium 1 % gel 2 g TOP QID MDD 8 gm Qty: 100 5RF Rx Instructions: apply to low back gabapentin 300 mg capsule 900 mg PO TID Qty: 200 5RF zolpidem 10 mg tablet PO losartan 100 mg tablet PO DAILY hydrocodone-acetaminophen PO Referrals: Alberto Jones MD [Primary Care Provider] -
[2022-02-06 12:30] VITALS: BP 132/60; PULSE 65; O2SAT 100
== END 2022-02-06 12:46 | disposition home or self-care (01) ==
PROVIDERS: Emergency Provider Emergency Medicine; PCP Internal Medicine
DX: R04.2 Hemoptysis (principal); C34.90 Malignant neoplasm of unspecified part of unspecified bronchus or lung
CPT/HCPCS: 99281